=== PATIENT | female | born 1940 | race Caucasian/White ===

== ENCOUNTER 2016-09-27 07:36 | Day surgery (SDC) | payer MEDICARE ==
[2016-09-25 11:47] VITALS: BMI 28.3
[~2016-09-27 07:36] MED LIST: LACTATED RINGERS 1,000 ML IV SCH; LIDOCAINE 1% 20 ML VIAL (10MG/ML) FOR IV START INTRADERMA PRN
[2016-09-27 08:10] VITALS: RESP 16; TEMP 97.8
[2016-09-27] MEDS ORDERED: LIDOCAINE 1% INJ 10MG/ML (20 ML MDV) ONE (08:25)
[2016-09-27] MEDS ORDERED: PROPOFOL 10 MG/ML 20 ML VIAL IV ONE (08:25)
--- NOTE | 2016-09-27 08:42 | P.PCN ---
Date of Procedure: 09/27/16 Procedure(s) Performed: BRIEF HISTORY: Patient is a 75-year-old pleasant white female, scheduled for an elective colonoscopy as a part of evaluation of long-standing history of ulcerative colitis diagnosed in 2007. Patient is in clinical remission and is maintained on Asacol 1600 mg 3 times daily. She is scheduled for a surveillance colonoscopy today. PROCEDURE PERFORMED: Colonoscopy with biopsy. PREOPERATIVE DIAGNOSIS: History of ulcerative colitis diagnosed in 2007. IV sedation per Anesthesia. PROCEDURE: After informed consent was obtained, the patient, was brought into the endoscopy unit. IV conscious sedation was administered by Anesthesia under continuous monitoring. Initially the Olympus CF-160 flexible video colonoscope was then inserted in the rectum, gradually advanced into the cecum without any difficulty. Careful examination was performed as the scope was gradually being withdrawn. Ileocecal valve and the appendiceal orifice were visualized and appeared normal. Prep was excellent. Mucosa of the cecum, ascending colon, transverse colon, descending colon, sigmoid colon, and rectum appeared normal. Random biopsies were done from the rectum to cecum to rule out dysplasia. Scattered similar diverticulosis seen. Retroflexion was performed in the rectum and no lesions were seen. The patient tolerated the procedure well. IMPRESSION: Normal-appearing colon from rectum to cecum with no evidence of active colitis or colorectal neoplasia . Scattered sigmoid diverticulosis. RECOMMENDATIONS: Findings of this examination were discussed with the patient as well as her family. She was advised to follow with the biopsy results. If the biopsy does not show any evidence of dysplasia ,she can have a repeat colonoscopy in 2 years.
[2016-09-27 08:45] VITALS: BP 141/72; PULSE 66
== END 2016-09-27 09:51 | disposition home or self-care (01) ==
LOC: ORWHC2ENDO 07:36
PROVIDERS: ATTEND Internal Medicine Gastroenterology
DX: Z87.19 Personal history of other diseases of the digestive system (principal); K57.30 Diverticulosis of large intestine without perforation or abscess without bleeding; K21.9 Gastro-esophageal reflux disease without esophagitis; I10 Essential (primary) hypertension; J45.909 Unspecified asthma, uncomplicated; E07.9 Disorder of thyroid, unspecified; Z79.899 Other long term (current) drug therapy; Z88.2 Allergy status to sulfonamides; Z88.8 Allergy status to other drugs, medicaments and biological substances
CPT/HCPCS: 88305; 45380; J2001; J2704

== ENCOUNTER → 2016-10-07 | Outpatient (CLI) | payer MEDICARE ==
[2016-10-07 12:12] LABS: CH 30.2; CHCM 31.8; HCT 37.9 % (34.0-46.0); HDW 2.21; HGB 12.2 gm/dL (11.4-16.0); MCH 30.6 pg (25.0-35.0); MCHC 32.1 g/dL (31.0-37.0); MCV 95.3 fL (80.0-100.0); Mean Platelet Volume 7.7; RBC 3.98 m/uL (3.80-5.40); RDW 12.7 % (11.5-15.5); WBC 4.8 k/uL (3.8-10.6)
[2016-10-07 12:40] LABS: ALT 22 U/L (9-52); AST 18 U/L (14-36); Alkaline Phosphatase 57 U/L (38-126); Anion Gap 8 mmol/L; Blood Urea Nitrogen 9 mg/dL (7-17); Calcium 9.7 mg/dL (8.4-10.2); Carbon Dioxide 27 mmol/L (22-30); Chloride 104 mmol/L (98-107); Cholesterol 165 mg/dL (<200); Glucose 83 mg/dL (74-99); HDL Cholesterol 53 mg/dL (40-60); Non-African American GFR(MDRD) >60 (>60 ml/min/1.73 sqM); Potassium 4.2 mmol/L (3.5-5.1); Sodium 139 mmol/L (137-145); Total Bilirubin 0.5 mg/dL (0.2-1.3); Total Protein 6.4 g/dL (6.3-8.2); Triglycerides 95 mg/dL (<150)
== END | disposition home or self-care (01) ==
LOC: LABWHC1 11:35
PROVIDERS: ATTEND Psychiatry & Neurology Psychiatry
DX: E03.9 Hypothyroidism, unspecified (principal); E78.5 Hyperlipidemia, unspecified
CPT/HCPCS: 36415; 80053; 80061; 84439; 84443; 85027

== ENCOUNTER 2017-03-08 18:23 | Emergency (ER) | payer MEDICARE, OTHER ==
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
--- NOTE | 2017-03-08 19:17 | XR ---
EXAMINATION TYPE: XR shoulder complete RT DATE OF EXAM: 03/08/2017 COMPARISON: NONE HISTORY: Pain TECHNIQUE: 4 views FINDINGS: There is lucency in the glenoid that is suspicious for nondisplaced 1.5 cm intra-articular chip fracture of the inferior glenoid. There is no dislocation. Proximal humerus is intact. IMPRESSION: Possible intra-articular large chip fracture of the inferior glenoid labrum. CT scan woul d be helpful for further evaluation if clinically indicated.
--- NOTE | 2017-03-08 19:19 | XR ---
EXAMINATION TYPE: XR hand complete RT DATE OF EXAM: 03/08/2017 COMPARISON: NONE HISTORY: Pain TECHNIQUE: 3 views FINDINGS: There is narrowing and spurring at the first carpometacarpal joint. There is calcification in the triangle or cartilage. There is narrowing of intercarpal joint spaces. There is osteopenia. I see no fracture. IMPRESSION: No acute abnormality of the right hand. Degenerative changes. There is probably an old he aled fracture of distal radius.
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
[2017-03-08 21:45] VITALS: BP 186/79; PULSE 64; RESP 16; TEMP 98.6
== END 2017-03-08 21:56 | disposition home or self-care (01) ==
LOC: EC 18:23
DX: S42.144A Nondisplaced fracture of glenoid cavity of scapula, right shoulder, initial encounter for closed fracture (principal); S60.221A Contusion of right hand, initial encounter; S70.12XA Contusion of left thigh, initial encounter; M54.5 Low back pain; J45.909 Unspecified asthma, uncomplicated; M19.90 Unspecified osteoarthritis, unspecified site; E07.9 Disorder of thyroid, unspecified; F41.9 Anxiety disorder, unspecified; Z79.51 Long term (current) use of inhaled steroids; Z79.891 Long term (current) use of opiate analgesic; Z79.899 Other long term (current) drug therapy; Z88.1 Allergy status to other antibiotic agents; Z88.2 Allergy status to sulfonamides; Z88.5 Allergy status to narcotic agent; Z88.8 Allergy status to other drugs, medicaments and biological substances; Z87.19 Personal history of other diseases of the digestive system; V63.5XXA Driver of heavy transport vehicle injured in collision with car, pick-up truck or van in traffic accident, initial encounter; Y93.89 Activity, other specified; Y92.410 Unspecified street and highway as the place of occurrence of the external cause
CPT/HCPCS: 72100; 72131; 99284

== ENCOUNTER → 2017-03-26 | Outpatient (CLI) | payer MEDICARE ==
[~2017-03-26] MED LIST changes: +DENOSUMAB 60 MG/ML 1 ML SYRINGE SQ NR; -LACTATED RINGERS 1,000 ML IV SCH; -LIDOCAINE 1% 20 ML VIAL (10MG/ML) FOR IV START INTRADERMA PRN
[2017-03-26 13:49] VITALS: BP 148/67; PULSE 64; RESP 18; TEMP 97.8
== END ==
LOC: PROCWHC3 13:18
PROVIDERS: ATTEND Family Medicine
DX: M81.0 Age-related osteoporosis without current pathological fracture (principal)
CPT/HCPCS: 96372; J0897

== ENCOUNTER → 2017-11-27 | Outpatient (CLI) | payer MEDICARE ==
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
== END | disposition home or self-care (01) ==
LOC: RADBDWWP 09:37
PROVIDERS: ATTEND Family Medicine
DX: M81.0 Age-related osteoporosis without current pathological fracture (principal)
CPT/HCPCS: 77080

== ENCOUNTER 2017-12-22 21:18 | Emergency (ER) | payer MEDICARE ==
[2017-12-22 21:29] VITALS: RESP 18
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
[2017-12-22] MEDS ORDERED: MORPHINE SULFATE 4MG/4ML SYRG IM STA (22:24)
--- NOTE | 2017-12-22 22:56 | XR ---
EXAMINATION TYPE: XR shoulder complete RT DATE OF EXAM: 12/22/2017 COMPARISON: 03/08/2017 HISTORY: Shoulder pain TECHNIQUE: 3 views FINDINGS: There is deformity of the humeral head consistent with a slightly impacted fracture of the humeral neck. There is no dislocation. Acromioclavicular joint is intact. Scapula appears intact. IMPRESSION: Acute mildly impacted humeral neck fracture. This is a change compared to old exam.
[2017-12-22 23:41] VITALS: BP 160/80; PULSE 70; TEMP 97.8
== END 2017-12-22 23:41 | disposition home or self-care (01) ==
LOC: EC 21:18
DX: S42.301A Unspecified fracture of shaft of humerus, right arm, initial encounter for closed fracture (principal); J45.909 Unspecified asthma, uncomplicated; M19.90 Unspecified osteoarthritis, unspecified site; E07.9 Disorder of thyroid, unspecified; F41.9 Anxiety disorder, unspecified; Z79.52 Long term (current) use of systemic steroids; Z79.899 Other long term (current) drug therapy; Z88.2 Allergy status to sulfonamides; Z88.8 Allergy status to other drugs, medicaments and biological substances; Z88.1 Allergy status to other antibiotic agents; Z88.5 Allergy status to narcotic agent; Z88.6 Allergy status to analgesic agent; W01.0XXA Fall on same level from slipping, tripping and stumbling without subsequent striking against object, initial encounter; Y92.099 Unspecified place in other non-institutional residence as the place of occurrence of the external cause; Y93.01 Activity, walking, marching and hiking
CPT/HCPCS: 99283; 73030; L3670; J2270

== ENCOUNTER → 2017-12-26 | Outpatient (CLI) | payer MEDICARE ==
--- NOTE | 2017-12-27 10:26 | CT ---
EXAMINATION TYPE: CT shoulder RT wo con DATE OF EXAM: 12/26/2017 COMPARISON: CT right shoulder March 08, 2017. Right shoulder x-ray December 22, 2017 HISTORY: Rt shoulder pain. Recent fall injury. History of prior fracture. CT DLP: 260.7 mGycm Automated exposure control for dose reduction was used. FINDINGS: Osseous structures are demineralized. Acromioclavicular joint shows narrowing with capsular hypertrop hy and calcifications superiorly. Distal acromion morphology is unremarkable. There is mild to moderate glenohumeral joint space narrowing. There is mild osteophyte formation ante rior inferior aspect of the medial aspect of humeral head. There is new comminuted slightly impacted fracture through the surgical neck of right proximal humeru s. There is poor visualization of lucent line but it is likely present near axial image 25. Some scle rosis is present presumed product of impaction as no fracture is suspected acute correlating with rec ent fall. This fracture is new from prior CT. On coronal images there is 1.1 cm lateral displacement. There is additional lucency consistent with second fracture involving the greater trochanter. Some increasing calcification superolateral humeral head along course of distal rotator cuff or supra spinatus tendon is present on coronal image 24. Correlate clinically for calcific tendinitis. There i s new subdeltoid/subacromial fluid seen superficial to this on current study presumed related to rece nt trauma or fracture. Rotator cuff muscle bulk is fairly well-maintained. Visualized right lung is clear. IMPRESSION: THERE IS 2 PART NEER FRACTURE SURGICAL NECK RIGHT PROXIMAL HUMERUS WITH JUST GREATER THAN 1 CM DISPLA CEMENT OF DISTAL FRACTURE FRAGMENT APPRECIATED ON CORONAL IMAGES. THERE IS ADDITIONAL NONDISPLACED CO MMINUTED FRACTURE THROUGH THE GREATER TUBEROSITY NOTED.
== END | disposition home or self-care (01) ==
LOC: RADCTMAIN 13:34
PROVIDERS: ATTEND Orthopaedic Surgery
DX: S42.251A Displaced fracture of greater tuberosity of right humerus, initial encounter for closed fracture (principal); S42.201A Unspecified fracture of upper end of right humerus, initial encounter for closed fracture; S42.401A Unspecified fracture of lower end of right humerus, initial encounter for closed fracture

== ENCOUNTER 2018-02-14 10:48 | Emergency (ER) | payer MEDICARE ==
[2018-02-14 10:54] VITALS: TEMP 98.2
--- NOTE | 2018-02-14 11:13 | ED ---
General Adult HPI - General Chief complaint: Arrhythmia/Palpitations Stated complaint: HEART ISSUE Time Seen by Provider: 02/14/18 10:56 Source: patient, RN notes reviewed, old records reviewed Mode of arrival: wheelchair Limitations: no limitations - History of Present Illness Initial comments: 77-year-old female history of hypertension and irregular heartbeat presents for evaluation of palpitations and elevated blood pressure. Patient went to physical therapy this morning which she is receiving therapy for her fractured right humerus. She states that she had some palpitations and staff didn't take her vitals, noted an elevated blood pressure and Center for evaluation. She states she does have history of high blood pressure and took her medications this morning. She denies any difficulty breathing. Denies chest pain. She feels well the time my evaluation. No palpitations. No lower extremity pain or swelling. No abdominal pain. No nausea vomiting or diarrhea. No fever or cough. - Related Data Home Medications Medication Instructions Recorded Confirmed Acetaminophen Tab [Tylenol] 500 mg PO TID 05/17/14 03/26/17 Albuterol Sulfate [Ventolin HFA] 1 - 2 puff INHALATION RT-QID PRN 05/17/1403/26 Beclomethasone Dipropionate [Qvar 2 puff INHALATION RT-BID 05/17/14 03/26/17 80 mcg/puff] Calcium Carbonate [Antacid] 600 mg PO DAILY 05/17/14 03/26/17 Fexofenadine/Pseudoephedrine 1 tab PO DAILY 05/17/14 03/26/17 [Kimber-D 12 Hour Tablet] LORazepam [Lorazepam] 0.5 - 1 tab PO HS 05/17/14 03/26/17 Levothyroxine Sodium [Synthroid] 175 mcg PO DAILY 05/17/14 03/26/17 Mesalamine [Asacol Hd] 1,600 mg PO TID 05/17/14 03/26/17 Citalopram Hydrobromide [CeleXA] 10 mg PO DAILY 03/22/16 03/26/17 HYDROcodone/APAP 5-325MG [[place] 1 tab PO Q8H PRN 03/08/17 03/26/17 5-325] Ranitidine HCl 150 mg PO BID 03/08/17 03/26/17 Verapamil Sr [Isoptin Sr] 180 mg PO DAILY 03/08/17 03/26/17 Previous Rx's Medication Instructions Recorded Hydrocodone/Acetaminophen [[place] 1 each PO Q6HR PRN #20 tab 12/22/17 5-325] Allergies Allergy/AdvReac Type Severity Reaction Status Date / Time Sulfa (Sulfonamide Allergy Severe Rash/Hives Verified 02/14/18 10:53 Antibiotics) PRIYA Inhibitors Allergy Unknown Verified 02/14/18 10:53 atorvastatin calcium Allergy Swelling Verified 02/14/18 10:53 [From Lipitor] atropine sulfate Allergy Unknown Verified 02/14/18 10:53 [From Lomotil] Cephalosporins Allergy Unknown Verified 02/14/18 10:53 dicyclomine HCl [From Bentyl] Allergy Nausea Verified 02/14/18 10:53 diphenoxylate HCl Allergy Unknown Verified 02/14/18 10:53 [From Lomotil] propoxyphene napsylate Allergy Unknown Verified 02/14/18 10:53 [From Darvocet-N 100] Ungwlfm-Klr-Vic Reductase Allergy muscle pain Verified 02/14/18 10:53 Inhibitor acetaminophen AdvReac Unknown Verified 02/14/18 10:53 [From Darvocet-N 100] lopidimine Allergy Unknown Uncoded 02/14/18 10:53 Review of Systems ROS Statement: Those systems with pertinent positive or pertinent negative responses have been documented in the HPI. ROS Other: All systems not noted in ROS Statement are negative. Past Medical History Past Medical History: Asthma, Hypertension, Osteoarthritis (OA), Thyroid Disorder Additional Past Medical History / Comment(s): ulcerative colitis scoliosis, 11/17- OSTEOPOROSIS- wears back brace as needed, History of Any Multi-Drug Resistant Organisms: None Reported Past Surgical History: Appendectomy, Cholecystectomy, Hysterectomy, Joint Replacement, Tonsillectomy Additional Past Surgical History / Comment(s): Bilateral total knee arthroplasty , hilda cataracts, Past Anesthesia/Blood Transfusion Reactions: No Reported Reaction Past Psychological History: Anxiety Smoking Status: Never smoker Past Alcohol Use History: None Reported Past Drug Use History: None Reported - Past Family History Mother Family Medical History: No Reported History General Exam Limitations: no limitations General appearance: alert, in no apparent distress Head exam: Present: atraumatic, normocephalic Eye exam: Present: normal appearance, PERRL ENT exam: Present: normal exam Neck exam: Present: normal inspection. Absent: tenderness, meningismus Respiratory exam: Present: normal lung sounds bilaterally. Absent: respiratory distress, wheezes, rales Cardiovascular Exam: Present: regular rate, normal rhythm GI/Abdominal exam: Present: soft. Absent: distended, tenderness Extremities exam: Present: normal inspection, normal capillary refill. Absent: pedal edema, calf tenderness Neurological exam: Present: alert, oriented X3, CN II-XII intact. Absent: motor sensory deficit Psychiatric exam: Present: normal affect, normal mood Skin exam: Present: warm, dry, intact. Absent: cyanosis, diaphoretic Course Vital Signs 02/14/18 02/14/18 02/14/18 10:50 11:07 11:11 Temperature 98.2 F Pulse Rate 109 H 90 Pulse Rate [ 88 Apical] Respiratory 18 18 Rate Blood Pressure 191/81 169/90 O2 Sat by Pulse 96 100 Oximetry EKG Findings - EKG Comments: EKG Findings:: EKG: Normal sinus rhythm, rate of 84, OR interval 136, QRS duration 82, QTC 441, no ST segment elevation or depression, Medical Decision Making - Medical Decision Making 77-year-old female presenting for elevated blood pressure at her physical therapy appointment this morning. Only symptom was palpitations earlier today. No chest pain. Physical exam is unremarkable. Workup including EKG, which is normal sinus chest x-ray showing good aeration, no focal pneumonia. CBC and CMP are obtained which are within normal limits, troponin is negative. On reevaluation, patient's blood pressure is 152/69. She is completely asymptomatic. She will continue to take her antihypertensive medication. She will return with worsening or changing symptoms. - Lab Data Result diagrams: 02/14/18 11:10 02/14/18 11:10 Lab Results 02/14/18 02/14/18 02/14/18 Range/Units 11:10 11:10 11:10 WBC 7.0 (3.8-10.6) k/uL RBC 4.57 (3.80-5.40) m/uL Hgb 13.7 (11.4-16.0) gm/dL Hct 42.0 (34.0-46.0) % MCV 91.9 (80.0-100.0) fL MCH 29.9 (25.0-35.0) pg MCHC 32.6 (31.0-37.0) g/dL RDW 13.9 (11.5-15.5) % Plt Count 247 (150-450) k/uL Neutrophils % 65 % Lymphocytes % 24 % Monocytes % 6 % Eosinophils % 3 % Basophils % 1 % Neutrophils # 4.5 (1.3-7.7) k/uL Lymphocytes # 1.7 (1.0-4.8) k/uL Monocytes # 0.4 (0-1.0) k/uL Eosinophils # 0.2 (0-0.7) k/uL Basophils # 0.0 (0-0.2) k/uL PT (9.0-12.0) sec INR (<1.2) APTT (22.0-30.0) sec Sodium 141 (137-145) mmol/L Potassium 3.9 (3.5-5.1) mmol/L Chloride 100 (98-107) mmol/L Carbon Dioxide 28 (22-30) mmol/L Anion Gap 13 mmol/L BUN 13 (7-17) mg/dL Creatinine 1.01 (0.52-1.04) mg/dL Est GFR (CKD-EPI)AfAm 61 (>60 ml/min/1.73 sqM) Est GFR (CKD-EPI)NonAf 53 (>60 ml/min/1.73 sqM) Glucose 81 (74-99) mg/dL Calcium 9.9 (8.4-10.2) mg/dL Magnesium 1.9 (1.6-2.3) mg/dL Total Bilirubin 0.5 (0.2-1.3) mg/dL AST 22 (14-36) U/L ALT 23 (9-52) U/L Alkaline Phosphatase 76 (38-126) U/L Total Creatine Kinase 63 (30-135) U/L CK-MB (CK-2) 0.8 (0.0-2.4) ng/mL CK-MB (CK-2) Rel Index 1.3 Troponin I <0.012 (0.000-0.034) ng/mL Total Protein 6.9 (6.3-8.2) g/dL Albumin 4.1 (3.5-5.0) g/dL 02/14/18 Range/Units 11:10 WBC (3.8-10.6) k/uL RBC (3.80-5.40) m/uL Hgb (11.4-16.0) gm/dL Hct (34.0-46.0) % MCV (80.0-100.0) fL MCH (25.0-35.0) pg MCHC (31.0-37.0) g/dL RDW (11.5-15.5) % Plt Count (150-450) k/uL Neutrophils % % Lymphocytes % % Monocytes % % Eosinophils % % Basophils % % Neutrophils # (1.3-7.7) k/uL Lymphocytes # (1.0-4.8) k/uL Monocytes # (0-1.0) k/uL Eosinophils # (0-0.7) k/uL Basophils # (0-0.2) k/uL PT 10.6 (9.0-12.0) sec INR 1.1 (<1.2) APTT 24.3 (22.0-30.0) sec Sodium (137-145) mmol/L Potassium (3.5-5.1) mmol/L Chloride (98-107) mmol/L Carbon Dioxide (22-30) mmol/L Anion Gap mmol/L BUN (7-17) mg/dL Creatinine (0.52-1.04) mg/dL Est GFR (CKD-EPI)AfAm (>60 ml/min/1.73 sqM) Est GFR (CKD-EPI)NonAf (>60 ml/min/1.73 sqM) Glucose (74-99) mg/dL Calcium (8.4-10.2) mg/dL Magnesium (1.6-2.3) mg/dL Total Bilirubin (0.2-1.3) mg/dL AST (14-36) U/L ALT (9-52) U/L Alkaline Phosphatase (38-126) U/L Total Creatine Kinase (30-135) U/L CK-MB (CK-2) (0.0-2.4) ng/mL CK-MB (CK-2) Rel Index Troponin I (0.000-0.034) ng/mL Total Protein (6.3-8.2) g/dL Albumin (3.5-5.0) g/dL Disposition Clinical Impression: Hypertension Disposition: HOME SELF-CARE Condition: Fair Instructions: Palpitations (ED), Hypertension (ED) Is patient prescribed a controlled substance at d/c from ED?: No Referrals: Bong Daly DO [Primary Care Provider] - 1-2 days Time of Disposition: 12:26
[2018-02-14 11:46] LABS: Albumin 4.1 g/dL (3.5-5.0); Calcium 9.9 mg/dL (8.4-10.2); Magnesium 1.9 mg/dL (1.6-2.3); Potassium 3.9 mmol/L (3.5-5.1); Total Bilirubin 0.5 mg/dL (0.2-1.3); Total Protein 6.9 g/dL (6.3-8.2)
[2018-02-14 11:47] LABS: Basophils % (A) 1 %; Eosinophils # (A) 0.2 k/uL (0-0.7); Eosinophils % (A) 3 %; HGB 13.7 gm/dL (11.4-16.0); Lymphocytes # (A) 1.7 k/uL (1.0-4.8); Lymphocytes % (A) 24 %; MCH 29.9 pg (25.0-35.0); MCHC 32.6 g/dL (31.0-37.0); MCV 91.9 fL (80.0-100.0); Mean Platelet Volume 6.8; Monocytes # (A) 0.4 k/uL (0-1.0); Monocytes % (A) 6 %; Neutrophils # (A) 4.5 k/uL (1.3-7.7); Neutrophils % (A) 65 %; Platelet Count 247 k/uL (150-450); RBC 4.57 m/uL (3.80-5.40); RDW 13.9 % (11.5-15.5)
--- NOTE | 2018-02-14 11:50 | XR ---
EXAMINATION TYPE: XR chest 2V DATE OF EXAM: 02/14/2018 COMPARISON: Prior chest 12/08/2009 HISTORY: Dysrhythmia TECHNIQUE: Frontal and lateral views of the chest are obtained. FINDINGS: There is no focal air space opacity, pleural effusion, or pneumothorax seen. The cardiac silhouette size is within normal limits. The osseous structures are intact. There are overlying car diac leads. IMPRESSION: No acute cardiopulmonary process.
[2018-02-14 11:59] LABS: Creatine Kinase 63 U/L (30-135)
[2018-02-14 12:11] LABS: Creatine Kinase MB 0.8 ng/mL (0.0-2.4); Troponin I <0.012 ng/mL (0.000-0.034)
[2018-02-14 12:13] LABS: INR 1.1 (<1.2)
[2018-02-14 12:14] LABS: Partial Thromboplastin Time 24.3 sec (22.0-30.0); Prothrombin Time 10.6 sec (9.0-12.0)
[2018-02-14 12:25] VITALS: BP 152/69; PULSE 71; RESP 16
== END 2018-02-14 13:10 | disposition home or self-care (01) ==
LOC: EC 10:48
DX: I10 Essential (primary) hypertension (principal); J45.909 Unspecified asthma, uncomplicated; M19.90 Unspecified osteoarthritis, unspecified site; E07.9 Disorder of thyroid, unspecified; M81.0 Age-related osteoporosis without current pathological fracture; F41.9 Anxiety disorder, unspecified; Z96.653 Presence of artificial knee joint, bilateral; Z79.51 Long term (current) use of inhaled steroids; Z79.899 Other long term (current) drug therapy; Z88.2 Allergy status to sulfonamides; Z88.5 Allergy status to narcotic agent; Z88.8 Allergy status to other drugs, medicaments and biological substances
CPT/HCPCS: 36415; 71046; 80053; 82550; 82553; 83735; 84484; 85025; 85610; 85730; 93005; 99285

== ENCOUNTER → 2018-04-26 | Outpatient (CLI) | payer MEDICARE ==
--- NOTE | 2018-04-26 15:12 | NM ---
EXAMINATION TYPE: NM bone scan whole body DATE OF EXAM: 04/26/2018 COMPARISON: Plain film 04/08/2018, prior bone scan 07/29/2014 HISTORY: Low back pain Delayed whole-body scanning was performed following the injection of 23.2 mCi Tc 99m MDP. Images acq uired 3 hours post injection. FINDINGS: There is a bandlike area of increased radio from physical uptake at T12 level compatible with subacut e osteoporotic compression fracture. Scoliotic curvature is present in the visualized spine. Uptake w ithin the feet, wrists, shoulders, sternoclavicular joints is likely degenerative. Postop changes are suspected to the knees, photopenic defects are present. Soft tissue uptake within normal limits. IMPRESSION: Subacute T12 osteoporotic compression fracture.
== END | disposition home or self-care (01) ==
LOC: RADNMMAIN 09:57
PROVIDERS: ATTEND Physical Medicine & Rehabilitation
DX: M80.08XA Age-related osteoporosis with current pathological fracture, vertebra(e), initial encounter for fracture (principal)
CPT/HCPCS: 78306; A9503

== ENCOUNTER 2018-11-25 08:30 | Inpatient (IN) | payer MEDICARE ==
[2018-11-25] MEDS ORDERED: ONDANSETRON 4 MG/2 ML VIAL IVP STA (09:17)
[2018-11-25] MEDS ORDERED: SODIUM CHLORIDE 0.9% 1,000 ML IV STA ×2 (09:17)
--- NOTE | 2018-11-25 09:19 | ED ---
General Adult HPI - General Source: patient, EMS, RN notes reviewed, old records reviewed Mode of arrival: EMS Limitations: no limitations <Zenia Leal - Last Filed: 11/25/18 12:59> <Michael Long - Last Filed: 11/25/18 13:23> - General Chief complaint: Nausea/Vomiting/Diarrhea Stated complaint: NVD Time Seen by Provider: 11/25/18 08:45 - History of Present Illness Initial comments: Patient is a 78-year-old female presents emergency department today with complaints of nausea vomiting and diarrhea. Patient reports that she's been having symptoms for the past few days to more severe. Patient states that she's had diffuse lower abdominal cramping. Patient denies any back pain. She denies any changes in urination. No recent antibiotic use. She does have history of Crohn's or ulcerative colitis. She is unsure which type. Patient states that she has noticed bright red blood. Patient reports that she's had no chest pain shortness of breath. (Zenia Leal) - Related Data Home Medications Medication Instructions Recorded Confirmed Albuterol Sulfate [Ventolin HFA] 1 - 2 puff INHALATION RT-QID PRN 05/17/14 11/25/18 Beclomethasone Dipropionate [Qvar 2 puff INHALATION RT-BID 05/17/14 11/25/18 80 mcg/puff] LORazepam [Lorazepam] 1 mg PO HS 05/17/14 11/25/18 Levothyroxine Sodium [Synthroid] 175 mcg PO DAILY 05/17/14 11/25/18 Mesalamine [Asacol Hd] 1,600 mg PO TID 05/17/14 11/25/18 Citalopram Hydrobromide [CeleXA] 10 mg PO DAILY 03/22/16 11/25/18 HYDROcodone/APAP 5-325MG [[place] 1 tab PO Q8H PRN 03/08/17 11/25/18 5-325] Ranitidine HCl 150 mg PO BID 03/08/17 11/25/18 Cholecalciferol (Vitamin D3) 2,000 unit PO DAILY 02/14/18 11/25/18 [Vitamin D3] Fexofenadine HCl [Kimber Allergy] 180 mg PO DAILY 02/14/18 11/25/18 Verapamil Sr [Isoptin Sr] 240 mg PO DAILY 02/14/18 11/25/18 Ondansetron HCl [Zofran] 4 - 8 mg PO Q12H PRN 11/25/18 11/25/18 Allergies Allergy/AdvReac Type Severity Reaction Status Date / Time Sulfa (Sulfonamide Allergy Severe Rash/Hives Verified 11/25/18 12:02 Antibiotics) PRIYA Inhibitors Allergy Unknown Verified 11/25/18 12:02 atorvastatin calcium Allergy Swelling Verified 11/25/18 12:02 [From Lipitor] atropine sulfate Allergy Unknown Verified 11/25/18 12:02 [From Lomotil] Cephalosporins Allergy Unknown Verified 11/25/18 12:02 dicyclomine HCl [From Bentyl] Allergy Nausea Verified 11/25/18 12:02 diphenoxylate HCl Allergy Unknown Verified 11/25/18 12:02 [From Lomotil] propoxyphene napsylate Allergy Unknown Verified 11/25/18 12:02 [From Darvocet-N 100] Nafnhvu-Tge-Cea Reductase Allergy muscle pain Verified 11/25/18 12:02 Inhibitor acetaminophen AdvReac Unknown Verified 11/25/18 12:02 [From Darvocet-N 100] lopidimine Allergy Unknown Uncoded 02/14/18 10:53 Review of Systems ROS Other: All systems not noted in ROS Statement are negative. <Zenia Leal - Last Filed: 11/25/18 12:59> ROS Other: All systems not noted in ROS Statement are negative. <Michael Long - Last Filed: 11/25/18 13:23> ROS Statement: Those systems with pertinent positive or pertinent negative responses have been documented in the HPI. Past Medical History Past Medical History: Asthma, Hypertension, Osteoarthritis (OA), Thyroid D isorder Additional Past Medical History / Comment(s): ulcerative colitis scoliosis, 11/17/14- OSTEOPOROSIS- wears back brace as needed, History of Any Multi-Drug Resistant Organisms: None Reported Past Surgical History: Appendectomy, Cholecystectomy, Hysterectomy, Joint Replacement, Tonsillectomy Additional Past Surgical History / Comment(s): Bilateral total knee arthroplasty, hilda cataracts, Past Anesthesia/Blood Transfusion Reactions: No Reported Reaction Past Psychological History: Anxiety Smoking Status: Never smoker Past Alcohol Use History: None Reported Past Drug Use History: None Reported - Past Family History Mother Family Medical History: No Reported History <Zenia Leal - Last Filed: 11/25/18 12:59> General Exam Limitations: no limitations General appearance: alert, in no apparent distress Head exam: Present: atraumatic, normocephalic, normal inspection Eye exam: Present: normal appearance, PERRL, EOMI. Absent: scleral icterus, conjunctival injection, periorbital swelling ENT exam: Present: mucous membranes dry, mucous membranes moist. Absent: normal exam, normal oropharynx Neck exam: Present: normal inspection. Absent: tenderness, meningismus, lymphadenopathy Respiratory exam: Present: normal lung sounds bilaterally. Absent: respiratory distress, wheezes, rales, rhonchi, stridor Cardiovascular Exam: Present: regular rate, normal rhythm, normal heart sounds. Absent: systolic murmur, diastolic murmur, rubs, gallop, clicks GI/Abdominal exam: Present: tenderness (Right lower quadrant pain), normal bowel sounds. Absent: soft, distended, guarding, rebound, rigid Extremities exam: Present: normal inspection, full ROM, normal capillary refill. Absent: tenderness, pedal edema, joint swelling, calf tenderness Back exam: Present: normal inspection Neurological exam: Present: alert Psychiatric exam: Present: normal affect, normal mood Skin exam: Present: warm, dry, intact, normal color. Absent: rash <Zenia Leal - Last Filed: 11/25/18 12:59> - General Exam Comments Initial Comments: This patient's an 78-year-old female. Alert and oriented 3. No significant distress. (Zenia Leal) Course <Zenia Leal - Last Filed: 11/25/18 12:59> Vital Signs 11/25/18 11/25/18 08:38 10:26 Temperature 98.3 F Pulse Rate 93 85 Respiratory 18 20 Rate Blood Pressure 108/88 147/72 O2 Sat by Pulse 98 97 Oximetry - Reevaluation(s) Reevaluation #1: 11/25/18 10:26 Patient reports that she's been disimpacting herself. (Zenia Leal) Medical Decision Making - Lab Data Result diagrams: 11/25/18 09:45 11/25/18 09:45 - Radiology Data Radiology results: report reviewed <Zenia Leal - Last Filed: 11/25/18 12:59> - Lab Data Result diagrams: 11/25/18 09:45 11/25/18 09:45 <Michael Long - Last Filed: 11/25/18 13:23> - Medical Decision Making Patient is an 78-year-old female presents emergency department today with complaints of nausea and vomiting and diarrhea. Symptoms progressed over the past few days. Patient's son is concerned with her multiple diarrhea episodes that she could be risk for fall. She reports she's been using some laxatives to promote bowel movements that she recently suffered from constipation. She also complains of conservative fecal impaction. Patient has had a large bowel movement multiple times in the ER. Over 6 episodes of diarrhea within the past 2 hours. Patient 10 episodes of vomiting. Patient labwork was obtained. She has evidence of hypokalemia. Potassium was 3.0. She is given 40 by mouth of K- Dur and was able to tolerate the pill. Patient's complaining of severe right lower quadrant tenderness pain. CT abdomen and pelvis was completed. There is evidence of severe colitis. Patient reports that she does see Dr. Momin. She is scheduled for colonoscopy within the next few weeks. I discussed at this time with dehydration multiple episodes of diarrhea. Concern for colitis. The Patient. We'll give the Patient 1 dose of by mouth Cipro Flagyl elevated white blood cell count. All questions were answered. (Zenia Leal) Patient reevaluated and reexamined by myself, Dr. Long. Patient is resting comfortably in bed. Abdomen soft with mild diffuse tenderness. Patient does appear dry clinically. Case was discussed in detail with Dr. Camp, who will admit covered for Dr. Daly. GI will be placed on consult. Patient was previously seen Dr. Momin. (Michael Long) - Lab Data Lab Results 11/25/18 11/25/18 11/25/18 Range/Units 09:45 09:45 09:45 WBC 14.0 H (3.8-10.6) k/uL RBC 4.21 (3.80-5.40) m/uL Hgb 12.6 (11.4-16.0) gm/dL Hct 39.2 (34.0-46.0) % MCV 93.1 (80.0-100.0) fL MCH 29.9 (25.0-35.0) pg MCHC 32.1 (31.0-37.0) g/dL RDW 14.1 (11.5-15.5) % Plt Count 566 H (150-450) k/uL Neutrophils % 81 % Lymphocytes % 9 % Monocytes % 8 % Eosinophils % 1 % Basophils % 0 % Neutrophils # 11.3 H (1.3-7.7) k/uL Lymphocytes # 1.3 (1.0-4.8) k/uL Monocytes # 1.1 H (0-1.0) k/uL Eosinophils # 0.2 (0-0.7) k/uL Basophils # 0.0 (0-0.2) k/uL PT 10.8 (9.0-12.0) sec INR 1.0 (<1.2) APTT 24.8 (22.0-30.0) sec Sodium 135 L (137-145) mmol/L Potassium 3.0 L (3.5-5.1) mmol/L Chloride 98 (98-107) mmol/L Carbon Dioxide 27 (22-30) mmol/L Anion Gap 10 mmol/L BUN 18 H (7-17) mg/dL Creatinine 0.57 (0.52-1.04) mg/dL Est GFR (CKD-EPI)AfAm >90 (>60 ml/min/1.73 sqM) Est GFR (CKD-EPI)NonAf 88 (>60 ml/min/1.73 sqM) Glucose 103 H (74-99) mg/dL Calcium 9.8 (8.4-10.2) mg/dL Magnesium (1.6-2.3) mg/dL Total Bilirubin 1.1 (0.2-1.3) mg/dL AST 15 (14-36) U/L ALT 25 (9-52) U/L Alkaline Phosphatase 232 H (38-126) U/L Total Protein 6.2 L (6.3-8.2) g/dL Albumin 3.1 L (3.5-5.0) g/dL Amylase <30 L (30-110) U/L Lipase 18 L (23-300) U/L Urine Color Urine Appearance (Clear) Urine pH (5.0-8.0) Ur Specific [place] (1.001-1.035) Urine Protein (Negative) Urine Glucose (UA) (Negative) Urine Ketones (Negative) Urine Blood (Negative) Urine Nitrite (Negative) Urine Bilirubin (Negative) Urine Urobilinogen (<2.0) mg/dL Ur Leukocyte Esterase (Negative) Urine WBC (0-5) /hpf Ur Squamous Epith Cells (0-4) /hpf Amorphous Sediment (None) /hpf Urine Bacteria (None) /hpf Hyaline Casts (0-2) /lpf Urine Mucus (None) /hpf Stool Occult Blood (Negative) 11/25/18 11/25/18 11/25/18 Range/Units 09:45 10:10 10:15 WBC (3.8-10.6) k/uL RBC (3.80-5.40) m/uL Hgb (11.4-16.0) gm/dL Hct (34.0-46.0) % MCV (80.0-100.0) fL MCH (25.0-35.0) pg MCHC (31.0-37.0) g/dL RDW (11.5-15.5) % Plt Count (150-450) k/uL Neutrophils % % Lymphocytes % % Monocytes % % Eosinophils % % Basophils % % Neutrophils # (1.3-7.7) k/uL Lymphocytes # (1.0-4.8) k/uL Monocytes # (0-1.0) k/uL Eosinophils # (0-0.7) k/uL Basophils # (0-0.2) k/uL PT (9.0-12.0) sec INR (<1.2) APTT (22.0-30.0) sec Sodium (137-145) mmol/L Potassium (3.5-5.1) mmol/L Chloride (98-107) mmol/L Carbon Dioxide (22-30) mmol/L Anion Gap mmol/L BUN (7-17) mg/dL Creatinine (0.52-1.04) mg/dL Est GFR (CKD-EPI)AfAm (>60 ml/min/1.73 sqM) Est GFR (CKD-EPI)NonAf (>60 ml/min/1.73 sqM) Glucose (74-99) mg/dL Calcium (8.4-10.2) mg/dL Magnesium 2.2 (1.6-2.3) mg/dL Total Bilirubin (0.2-1.3) mg/dL AST (14-36) U/L ALT (9-52) U/L Alkaline Phosphatase (38-126) U/L Total Protein (6.3-8.2) g/dL Albumin (3.5-5.0) g/dL Amylase (30-110) U/L Lipase (23-300) U/L Urine Color Dark Brown Urine Appearance Cloudy H (Clear) Urine pH 6.5 (5.0-8.0) Ur Specific [place] 1.022 (1.001-1.035) Urine Protein 1+ H (Negative) Urine Glucose (UA) Negative (Negative) Urine Ketones Negative (Negative) Urine Blood Negative (Negative) Urine Nitrite Negative (Negative) Urine Bilirubin Negative (Negative) Urine Urobilinogen 8.0 (<2.0) mg/dL Ur Leukocyte Esterase Small H (Negative) Urine WBC 4 (0-5) /hpf Ur Squamous Epith Cells 2 (0-4) /hpf Amorphous Sediment Rare H (None) /hpf Urine Bacteria Rare H (None) /hpf Hyaline Casts 3 H (0-2) /lpf Urine Mucus Few H (None) /hpf Stool Occult Blood Negative (Negative) - Radiology Data CT shows severe colonic wall thickening involving the sigmoid colon which may reflect nonspecific colitis. Underlying neoplasm not excluded. Proximal to moderate states that in juvenile fluid. No evidence of perforation. X-ray shows an objective bowel gas pattern. (Zenia Leal) Disposition Is patient prescribed a controlled substance at d/c from ED?: No Time of Disposition: 13:02 <Zenia Leal - Last Filed: 11/25/18 12:59> <Michael Long - Last Filed: 11/25/18 13:23> Clinical Impression: Dehydration, Colitis, Hypokalemia Disposition: ADMITTED IP TO THIS HOSP Condition: Stable Instructions (If sedation given, give patient instructions): Acute Nausea and Vomiting (ED) Referrals: Bong Daly DO [Primary Care Provider] - 1-2 days
[2018-11-25 10:04] LABS: Basophils % (A) 0 %; Eosinophils # (A) 0.2 k/uL (0-0.7); Eosinophils % (A) 1 %; HCT 39.2 % (34.0-46.0); HGB 12.6 gm/dL (11.4-16.0); Lymphocytes # (A) 1.3 k/uL (1.0-4.8); Lymphocytes % (A) 9 %; MCH 29.9 pg (25.0-35.0); MCHC 32.1 g/dL (31.0-37.0); MCV 93.1 fL (80.0-100.0); Mean Platelet Volume 7.6; Monocytes # (A) 1.1 k/uL (0-1.0); Monocytes % (A) 8 %; Neutrophils # (A) 11.3 k/uL (1.3-7.7); Neutrophils % (A) 81 %; Platelet Count 566 k/uL (150-450); RBC 4.21 m/uL (3.80-5.40); RDW 14.1 % (11.5-15.5)
[2018-11-25 10:12] LABS: Partial Thromboplastin Time 24.8 sec (22.0-30.0); Prothrombin Time 10.8 sec (9.0-12.0)
[2018-11-25 10:19] LABS: ALT 25 U/L (9-52); AST 15 U/L (14-36); Albumin 3.1 g/dL (3.5-5.0); Alkaline Phosphatase 232 U/L (38-126); Amylase <30 U/L (30-110); Anion Gap 10 mmol/L; Blood Urea Nitrogen 18 mg/dL (7-17); Calcium 9.8 mg/dL (8.4-10.2); Carbon Dioxide 27 mmol/L (22-30); Chloride 98 mmol/L (98-107); Glucose 103 mg/dL (74-99); Lipase 18 U/L (23-300); Sodium 135 mmol/L (137-145); Total Bilirubin 1.1 mg/dL (0.2-1.3); Total Protein 6.2 g/dL (6.3-8.2)
[2018-11-25] MEDS: MORPHINE SULFATE 2 MG/ML SYRINGE IVP STA ×2 (10:31→11:43)
--- NOTE | 2018-11-25 10:33 | XR ---
Abdomen HISTORY: Pain and diarrhea, nausea and vomiting Single view of the abdomen Correlation to prior exam 05/17/2014 Bones show low mineral. Multilevel osteoporotic compression fractures are noted, some of which have d eveloped in the interval. Surgical clips are present in the right upper quadrant. Lung bases are arin r. No pneumoperitoneum or bowel obstruction. Patient is rotated, heart size likely within normal limi ts. Probable vascular calcifications within the pelvis. IMPRESSION: Nonobstructive bowel gas pattern. Additional findings above.
[2018-11-25 10:34] LABS: Amorphous Sediment,Urine Rare /hpf; Appearance,Urine Cloudy (Clear); Bacteria,Urine Rare /hpf; Bilirubin,Urine Negative (Negative); Blood,Urine Negative (Negative); Color,Urine Dark Brown; Glucose,Urine (UA) Negative (Negative); Hyaline Casts,Urine 3 /lpf (0-2); Ketones,Urine Negative (Negative); Leukocyte Esterase,Urine Small (Negative); Mucus,Urine Few /hpf; Nitrite,Urine Negative (Negative); PH, Urine 6.5 (5.0-8.0); Protein,Urine 1+ (Negative); Specific Gravity,Urine 1.022 (1.001-1.035); Squamous Epithelial Cell,Urine 2 /hpf (0-4); WBC,Urine 4 /hpf (0-5)
[2018-11-25] MEDS ORDERED: POTASSIUM CHLORIDE ER 20 MEQ TAB.ER PO STA (11:03)
[2018-11-25] MEDS ORDERED: MORPHINE SULFATE 4 MG/ML SYRINGE IVP STA (11:21)
--- NOTE | 2018-11-25 11:55 | CT ---
EXAMINATION TYPE: CT abdomen pelvis w con DATE OF EXAM: 11/25/2018 COMPARISON: 07/17/2011 HISTORY: RLQ pain CT DLP: 655.8 mGycm CONTRAST: CT scan of the abdomen and pelvis is performed without Oral Contrast and with IV Contrast, patient in jected with 100 mL of Isovue 300. FINDINGS: LUNG BASES-: No visible nodule. No infiltrate. LIVER/GB: Cholecystectomy clips. Multiple hypoattenuating hepatic lesions noted. No space occupyin g hepatic lesion. Biliary tree is of normal caliber. PANCREAS: No inflammation. No distinct mass. SPLEEN: No splenic enlargement. No lesion seen. ADRENALS: No nodule. No thickening. KIDNEYS/BLADDER: No hydronephrosis. No nephrolithiasis. No distinct renal mass. Urinary bladder g rossly unremarkable. BOWEL: Severe colonic wall thickening involving the sigmoid colon may reflect nonspecific colitis. Un derlying neoplasm not excluded. There is proximal to moderate the stasis with intraluminal fluid. No evidence for perforation. No free air or abscess appreciated. Small bowel is of normal caliber. GENITAL ORGANS: No gross abnormality. LYMPH NODES: No greater than 1cm abdominal or pelvic lymph nodes are appreciated. AORTA: No significant abnormality. OSSEOUS STRUCTURES: Multilevel lower thoracic and lumbar compression fractures noted of uncertain age and/or etiology. OTHER: No significant additional abnormality is seen. IMPRESSION: 1. Severe colonic wall thickening involving the sigmoid colon may reflect nonspecific colitis. Underl syed neoplasm not excluded. There is proximal to moderate the stasis with intraluminal fluid. No evid ence for perforation.
[2018-11-25] MEDS ORDERED: ACETAMINOPHEN TAB 325 MG TAB PO PRN (13:03)
[2018-11-25] MEDS ORDERED: NALOXONE 0.4 MG/ML 1 ML VIAL IV PRN (13:03)
[2018-11-25] MEDS ORDERED: ONDANSETRON 4 MG/2 ML VIAL IVP PRN (13:03)
[2018-11-25] MEDS ORDERED: IBUPROFEN 400 MG TAB PO PRN (13:03)
[2018-11-25] MEDS ORDERED: MORPHINE SULFATE 4 MG/ML SYRINGE IV PRN (13:03)
[2018-11-25] MEDS ORDERED: HYDROmorphone 0.5 MG/0.5 ML SYRINGE IVP PRN (13:03)
[2018-11-25] MEDS ORDERED: SODIUM CHLORIDE 0.9% 1,000 ML IV SCH (13:15)
[2018-11-25] MEDS ORDERED: INFLUENZA VACCINE (6 MOS+) 60 MCG/0.5 ML SYRINGE IM ONE (14:30)
[2018-11-25] MEDS ORDERED: MELATONIN 3 MG TABLET PO PRN (23:03)
[2018-11-25] MEDS: LORazepam 1 MG TAB PO SCH (23:52)
[2018-11-25] MEDS: FAMOTIDINE 20 MG TAB PO SCH (23:52)
[2018-11-25] MEDS: BALSALAZIDE DISODIUM 750 MG CAPSULE PO SCH (23:52)
[2018-11-25] MEDS: LACTATED RINGERS 1,000 ML IV SCH (23:53)
--- NOTE | 2018-11-26 01:12 | HP ---
HISTORY AND PHYSICAL DATE OF ADMISSION: 11/25/2018. DATE OF SERVICE: 11/25/2018. PRESENTING COMPLAINT: Diarrhea, nausea, vomiting. HISTORY OF PRESENTING COMPLAINT: This is a pleasant 78-year-old patient of Dr. Daly whose chronic stable medical conditions include asthma, GERD hyperlipidemia, hypertension, osteoarthritis, hypothyroid, diverticulosis, hemorrhoids, scoliosis, chronic back pain, hypothyroid. The patient also has colitis for which she is on medication by Dr. Kristi Powers. The patient was constipated about 4 weeks ago and patient whose daughter is a nurse gave a laxative. Following that the patient started to develop severe abdominal cramping and a lot of diarrhea for at least 5 days. The patient continues to have diarrhea, multiple stools, also nausea and vomiting. The vomiting is better but still gets nausea. The patient feels very sick and does not really have an appetite. Tired, rundown, exhausted. No fever. No chills. The patient's son lives next, he finally decided to bring her in. Did have a CT scan in the ER which showed significant thickening of the sigmoid colon. Admitted for the same. REVIEW OF SYSTEMS: CONSTITUTIONAL: Weak, tired, rundown. HEENT: None. RESPIRATORY: None. GASTROINTESTINAL: As above. GENITOURINARY: None. MUSCULOSKELETAL: Arthritic pain in joints. DERMATOLOGICAL: None. HEMATOLOGICAL: None. PSYCHIATRY: Slightly forgetful. NEUROLOGICAL: Generalized weakness. PAST MEDICAL HISTORY: Asthma, GERD, hypertension, hyperlipidemia, osteoarthritis, hypothyroidism, ulcerative colitis, diverticulosis, hemorrhoids, scoliosis, back pain. PAST SURGICAL HISTORY: Appendectomy, breast surgery, cholecystectomy, hysterectomy, joint replacement, bilateral total knee arthroplasty, bilateral cataract lens implant, bilateral breast biopsy, benign colonoscopy, pain injections. PSYCH HISTORY: Anxiety. SOCIAL HISTORY: The patient lives on her own. Son's home is attached. Does use a cane. No smoking. No alcohol. She has Visiting [place]. FAMILY HISTORY: Reviewed, noncontributory to presentation. HOME MEDICATIONS: 1. Zofran 48 mg every 12 p.r.n. 2. Isoptin SR 240 mg a day. 3. Vitamin D3, 2000 units a day. 4. Zantac 150 mg b.i.d. 5. Qvar 2 puffs b.i.d. 6. Ventolin HFA 1 or 2 puffs q.i.d. p.r.n. 7. Asacol 1600 mg p.o. t.i.d. 8. Synthroid 175 mcg a day. 9. Lorazepam 1 mg at bedtime. 10.Bayard 5 one tablet every 8 p.r.n. 11.Kimber 180 mg daily. 12.Celexa 10 mg daily. ALLERGIES: SULFA, PRIYA INHIBITOR, LIPITOR, ATROPINE, CEPHALOSPORIN, DICYCLOMINE, LOMOTIL, DARVOCET N100, STATINS, some of these are side effects. PHYSICAL EXAMINATION: Temperature 98.3, pulse 93, respiratory rate 18, blood pressure 108/88, pulse ox 98% on room air. GENERAL APPEARANCE: Average build, lying in bed, tired-appearing. EYES: Pupils equal. Conjunctivae normal. HEENT: External nose and ears normal. Oral cavity dry mucous membranes' NECK: JVD not raised. Mass not palpable. Respiratory effort normal. LUNGS: Decreased breath sounds. CARDIOVASCULAR: 1st and 2nd sounds. No edema. ABDOMEN: Mild diffuse tenderness. No guarding or rigidity. Liver and spleen not palpable. LYMPHATIC: No lymph node palpable in the neck or axillae. PSYCHIATRY: Alert, oriented x3. The patient is able to answer most questions. NEUROLOGICAL: Pupils equal. Cranial nerves grossly intact. Power and sensation grossly intact. INVESTIGATIONS: White count 14, hemoglobin 12.6, platelets ____, potassium 3, BUN 18, creatinine 0.57, albumin 3.1. Stool occult blood negative. C difficile negative. CT scan of the abdomen and pelvis shows severe thickening of the sigmoid colon with fluid retention proximal to that. ASSESSMENT: 1. This patient who had constipation 4 weeks ago, was given laxatives, developed severe abdominal cramping with diarrhea since then. CT scan of the abdomen showing severe sigmoid colon thickening with some fluid collection proximal to that. The patient has underlying ulcerative colitis. This could be a possible flareup of the same. Need to rule out any obstruction. The patient may need a colonoscopy. 2. Moderate persistent asthma. 3. Gastroesophageal reflux disease. 4. Hyperlipidemia. 5. Essential hypertension. 6. Primary osteoarthritis. 7. Hypothyroidism. The patient is on a rather hefty dose for her age and body build. Need to rule out over replacement. 8. Hemorrhoids. 9. Chronic scoliosis. PLAN: The patient is rather ill-appearing, rather dehydrated, weak, tired. We will start the patient on IV fluids and also add steroids. GI has already been consulted. We will switch the patient to clear liquids until further evaluation. Other home medications reviewed. Will do fall precautions. The patient is rather sick and will need to be in the hospital for at least 2 nights. Hence patient will be made inpatient. OLESYA / JUANN: [id number] /
[2018-11-26] MEDS ORDERED: LEVOTHYROXINE 50 MCG TAB PO SCH (06:30)
[2018-11-26] MEDS: FLUTICASONE 110 MCG INHALER INHALATION SCH ×2 (07:32→19:16)
[2018-11-26 07:50] LABS: Blood Urea Nitrogen 11 mg/dL (7-17); Calcium 8.5 mg/dL (8.4-10.2); Carbon Dioxide 30 mmol/L (22-30); Glucose 74 mg/dL (74-99); Potassium 2.9 mmol/L (3.5-5.1); Sodium 136 mmol/L (137-145)
[2018-11-26 07:51] LABS: Anion Gap 7 mmol/L; Chloride 99 mmol/L (98-107)
[2018-11-26] MEDS ORDERED: PANTOPRAZOLE 40 MG/10 ML VIAL IV SCH (09:00)
--- NOTE | 2018-11-26 09:06 | P.CONS ---
History of Present Illness - Reason for Consult Consult date: 11/26/18 Colitis Requesting physician: [facility] - Chief Complaint Abdominal pain - History of Present Illness 78-year-old female patient of Drs. Daly and Kristi Powers with a past medical history ulcerative colitis maintained on Asacol diagnosed in 2008, hypertension, colonic diverticulosis, chronic back pain, hyperlipidemia, GERD, possible dementia. Patient presented with acute abdominal pain nausea vomiting that started Sunday evening followed by several episodes of blood-tinged diarrhea. Nursing reports patient was constipated received laxatives prior to admission. Denies hematemesis or melena. Last bowel movement was yesterday reported as nonbloody per nursing staff. No fever or chills. No recent travels. No change in medications. No recent antibiotics. She was recently seen in the office November 06 for follow-up advised IBD maintenance with Asacol. No steroids were provided. Last colonoscopy record was in [address] abdomen severe colonic wall thickening involving the sigmoid may reflect nonspecific colitis underlying neoplasm not excluded. No free air abscess or perforation. White count 14. Hemoglobin 12.6. BUN 18. Crit 0.5. INR 1.0. Platelet 566. FOBT negative. C. diff negative. Review of Systems Constitutional: Denies fever, chills, sweats, weight gain, or loss. HEENT: Negative for migraines, blurred vision or loss, earaches, drainage, tinnitus, oral mucosal lesions, dysphagia, or odynophagia. CARDIAC: Negative for chest pain, arrhythmias, or palpitation. RESPIRATORY: Negative for shortness of breath, hemoptysis, cough, or sputum production. GI: See HPI for pertinent findings. : Negative for hematuria, urgency, frequency, polyuria, or dysuria. GYNc: Denies possibility of . Negative vaginal discharge. MUSCULOSKELETAL: Negative for muscle aches, swelling, arthritis, and arthralgias. NEUROLOGIC: Negative for stroke or TIA. ENDOCRINE: Negative for thyroid problems. SKIN: Negative for rash or itching. PSYCHIATRIC: Negative history for depression and anxiety Past Medical History Past Medical History: Asthma, GERD/Reflux, Hyperlipidemia, Hypertension, Osteoarthritis (OA), Thyroid Disorder Additional Past Medical History / Comment(s): Ventricular arrhythmia, ulcerative colitis, IBS, diverticular disease, ischemic bowel treated with antibiotics, hemorrhoids, scoliosis, back pain, Raynaulds bilaterally, osteoporosis, hypothyroid, statins-elevated LFT, sinus problems. History of Any Multi-Drug Resistant Organisms: None Reported Past Surgical History: Appendectomy, Breast Surgery, Cholecystectomy, Hysterectomy, Joint Replacement, Tonsillectomy Additional Past Surgical History / Comment(s): Bilateral total knee arthroplasty, hilda cataracts/lens implants, bilateral breast biopsies-benign, colonoscopies, pain injections. Past Anesthesia/Blood Transfusion Reactions: No Reported Reaction Past Psychological History: Anxiety Additional Psychological History / Comment(s): Pt resides in her own home that is attached to her son's home, [place]. She uses a cane to ambulate. She no longer drives. She has Visiting [place]. Smoking Status: Never smoker Past Alcohol Use History: None Reported Past Drug Use History: None Reported - Past Family History Mother Family Medical History: No Reported History Additional Family Medical History / Comment(s): Mother was obese and an alcoholic Father Additional Family Medical History / Comment(s): Father was an alcoholic. Medications and Allergies Home Medications Medication Instructions Recorded Confirmed Type Albuterol Sulfate [Ventolin HFA] 1 - 2 puff INHALATION RT-QID PRN 05/17/14 11/25/18 History Beclomethasone Dipropionate [Qvar 2 puff INHALATION RT-BID 05/17/14 11/25/18 History 80 mcg/puff] LORazepam [Lorazepam] 1 mg PO HS 05/17/14 11/25/18 History Levothyroxine Sodium [Synthroid] 175 mcg PO DAILY 05/17/14 11/25/18 History Mesalamine [Asacol Hd] 1,600 mg PO TID 05/17/14 11/25/18 History Citalopram Hydrobromide [CeleXA] 10 mg PO DAILY 03/22/16 11/25/18 History HYDROcodone/APAP 5-325MG [[place] 1 tab PO Q8H PRN 03/08/17 11/25/18 History 5-325] Ranitidine HCl 150 mg PO BID 03/08/17 11/25/18 History Cholecalciferol (Vitamin D3) 2,000 unit PO DAILY 02/14/18 11/25/18 History [Vitamin D3] Fexofenadine HCl [Kimber Allergy] 180 mg PO DAILY 02/14/18 11/25/18 History Verapamil Sr [Isoptin Sr] 240 mg PO DAILY 02/14/18 11/25/18 History Ondansetron HCl [Zofran] 4 - 8 mg PO Q12H PRN 11/25/18 11/25/18 History Allergies Allergy/AdvReac Type Severity Reaction Status Date / Time Sulfa (Sulfonamide Allergy Severe Rash/Hives Verified 11/25/18 12:02 Antibiotics) PRIYA Inhibitors Allergy Unknown Verified 11/25/18 12:02 atorvastatin calcium Allergy Swelling Verified 11/25/18 12:02 [From Lipitor] atropine sulfate Allergy Unknown Verified 11/25/18 12:02 [From Lomotil] Cephalosporins Allergy Unknown Verified 11/25/18 12:02 dicyclomine HCl [From Bentyl] Allergy Nausea Verified 11/25/18 12:02 diphenoxylate HCl Allergy Unknown Verified 11/25/18 12:02 [From Lomotil] propoxyphene napsylate Allergy Unknown Verified 11/25/18 12:02 [From Darvocet-N 100] Zwlqjmz-[id number]-Xiv Reductase Allergy muscle pain Verified 11/25/18 12:02 Inhibitor acetaminophen AdvReac Unknown Verified 11/25/18 12:02 [From Darvocet-N 100] lopidimine Allergy Unknown Uncoded 02/14/18 10:53 Physical Exam Vitals: Vital Signs Temp Pulse Pulse Pulse Resp BP BP 11/26/18 08:00 98.2 F 78 18 161/67 11/26/18 04:00 83 16 11/26/18 00:00 83 16 11/25/18 23:53 98.5 F 83 16 125/78 11/25/18 20:00 83 16 11/25/18 15:40 98.2 F 92 18 158/79 11/25/18 14:08 83 18 143/73 11/25/18 10:26 85 20 147/72 Pulse Ox 11/26/18 08:00 99 11/26/18 04:00 11/26/18 00:00 11/25/18 23:53 97 11/25/18 20:00 11/25/18 15:40 100 11/25/18 14:08 97 11/25/18 10:26 97 Intake and Output 11/25/18 11/26/18 11/26/18 22:59 06:59 14:59 Intake Total 440 400 Balance 440 400 Intake: Oral 440 300 Other 100 Other: Voiding Method Toilet Toilet # Voids 1 2 General appearance: The patient is alert, oriented, in no acute distress. HET: Head is normocephalic and atraumatic. Pupils are equal and reactive. Oropharynx is clear without lesions. Neck: Supple without lymphadenopathy. Trachea midline. Heart: S1 S2. Regular rate and rhythm. Lungs: No crackles or wheezes are heard. Abdomen: Soft, very mild tenderness bilateral lower abdomen, nondistended with bowel sounds. No peritoneal signs. No palpable organomegaly or masses. Extremities: Normal skin color and turgor. No cyanosis, rash, ulceration, clubbing, or edema. Radial and pedal pulses are 2/4 bilaterally. Neurological: No focal deficits. Strength and sensation are grossly intact. Results CBC & Chem 7: 11/27/18 09:08 11/27/18 09:08 Labs: Abnormal Lab Results - Last 24 Hours (Table) 11/25/18 11/25/18 11/25/18 Range/Units 09:45 09:45 10:15 WBC 14.0 H (3.8-10.6) k/uL Plt Count 566 H (150-450) k/uL Neutrophils # 11.3 H (1.3-7.7) k/uL Monocytes # 1.1 H (0-1.0) k/uL Sodium 135 L (137-145) mmol/L Potassium 3.0 L (3.5-5.1) mmol/L BUN 18 H (7-17) mg/dL Creatinine (0.52-1.04) mg/dL Glucose 103 H (74-99) mg/dL Alkaline Phosphatase 232 H (38-126) U/L Total Protein 6.2 L (6.3-8.2) g/dL Albumin 3.1 L (3.5-5.0) g/dL Amylase <30 L (30-110) U/L Lipase 18 L (23-300) U/L TSH (0.465-4.680) mIU/L Urine Appearance Cloudy H (Clear) Urine Protein 1+ H (Negative) Ur Leukocyte Esterase Small H (Negative) Amorphous Sediment Rare H (None) /hpf Urine Bacteria Rare H (None) /hpf Hyaline Casts 3 H (0-2) /lpf Urine Mucus Few H (None) /hpf 11/26/18 Range/Units 07:10 WBC (3.8-10.6) k/uL Plt Count (150-450) k/uL Neutrophils # (1.3-7.7) k/uL Monocytes # (0-1.0) k/uL Sodium 136 L (137-145) mmol/L Potassium 2.9 L (3.5-5.1) mmol/L BUN (7-17) mg/dL Creatinine 0.51 L (0.52-1.04) mg/dL Glucose (74-99) mg/dL Alkaline Phosphatase (38-126) U/L Total Protein (6.3-8.2) g/dL Albumin (3.5-5.0) g/dL Amylase (30-110) U/L Lipase (23-300) U/L TSH 0.020 L (0.465-4.680) mIU/L Urine Appearance (Clear) Urine Protein (Negative) Ur Leukocyte Esterase (Negative) Amorphous Sediment (None) /hpf Urine Bacteria (None) /hpf Hyaline Casts (0-2) /lpf Urine Mucus (None) /hpf Microbiology - Last 24 Hours (Table) 11/25/18 11:00 Stool Culture - Preliminary Stool CT scan - abdomen: report reviewed (Dr. Das) Assessment and Plan (1) Exacerbation of ulcerative colitis Narrative/Plan: 78 -year-old female presents with acute left-sided abdominal pain nonbloody diarrhea with previous history of constipation over the last few weeks. Computed tomography scan reports left-sided colonic thickening possible infectious possible inflammatory. An underlying superimposed infectious colitis cannot be excluded stool studies pending. Current Visit: Yes Status: Acute Code(s): K51.90 - ULCERATIVE COLITIS, UNSPECIFIED, WITHOUT COMPLICATIONS SNOMED Code(s): 330490498 Plan: 1. Will advance to low residue diet abdominal pain minimal. Colazal 750mg 3 tablets 3 times a day. We'll check CRP and sed rate. No steroids for now. Will follow with you. Daily CBC BMP. Patient is scheduled for outpatient colonoscopy December [address] Powers. Thank you for this kind referral and the opportunity to participate in the care of your patient. This consultation was discussed with Dr. Das. The impression and plan of care have been directed as dictated.
[2018-11-26] MEDS: ENOXAPARIN 40 MG/0.4 ML SYRINGE SQ SCH (09:07)
[2018-11-26] MEDS: BALSALAZIDE DISODIUM 750 MG CAPSULE PO SCH ×3 (09:09→22:35)
[2018-11-26] MEDS: LACTATED RINGERS 1,000 ML IV SCH ×3 (09:09→23:58)
[2018-11-26] MEDS: CITALOPRAM HYDROBROMIDE 10 MG TAB PO SCH (09:09)
[2018-11-26] MEDS: FAMOTIDINE 20 MG TAB PO SCH ×2 (09:10→22:35)
[2018-11-26] MEDS: ALPRAZolam 0.25 MG TAB PO PRN (09:10)
[2018-11-26] MEDS: VERAPAMIL SR 240 MG TABLET.ER PO SCH (09:10)
[2018-11-26 09:34] LABS: T4, Free (Free Thyroxine) 1.61 ng/dL (0.78-2.19)
[2018-11-26 12:15] VITALS: BMI 29.8
[2018-11-26] MEDS: POTASSIUM CHLORIDE ER 20 MEQ TAB.ER PO SCH ×2 (16:11→17:37)
--- NOTE | 2018-11-26 16:21 | CT ---
EXAMINATION TYPE: CT brain wo con DATE OF EXAM: 11/26/2018 COMPARISON: None HISTORY: Confusion CT DLP: 1040.4 mGycm Automated exposure control for dose reduction was used. FINDINGS: Generalized moderate to severe degenerative change. Low-attenuation the white matter seen bilaterally are nonspecific but most typical remote microvascular ischemia. Calvarium intact. No midline shift or mass effect. Nasal septal deviation noted. Changes of chronic s inusitis noted. IMPRESSION: DEGENERATIVE CHANGE WITH NONSPECIFIC WHITE MATTER CHANGES MOST TYPICAL REMOTE MICROVASCULAR ISCHEMIA. NO ACUTE HEMORRHAGE OR MASS EFFECT. CORRELATE FOR SINUSITIS.
--- NOTE | 2018-11-26 21:11 | XR ---
PROCEDURE: XR hand complete LT - 3V DATE AND TIME: 11/26/2018 8:11 PM CLINICAL INDICATION: Pt fell and injured left hand TECHNIQUE: AP and lateral and oblique COMPARISON: 08/16/2016 FINDINGS: There is diffuse left hand soft tissue swelling; the soft tissues are otherwise unremarkable. There is acute angulation at the second and third metacarpal necks, consistent with nondisplaced mild ly apex-lateral angulated fractures. Fractures do not appear to involve the second and third metacarp ophalangeal joints. There is generalized osteopenia, seen on the prior study. Also seen on the prior study are the multifocal advanced osteoarthritis changes are noted, particular ly at the radiocarpal first carpocarpal articulations. IMPRESSION: FRACTURES OF THE SECOND AND THIRD METACARPAL NECKS.
[2018-11-26] MEDS: HYDROcodone/APAP 5-325MG 1 EACH TAB PO PRN (21:36)
[2018-11-26] MEDS: LORazepam 1 MG TAB PO SCH (21:46)
--- NOTE | 2018-11-27 06:02 | PN ---
PROGRESS NOTE DATE OF SERVICE: 11/26/2018 PRESENTING COMPLAINT: Tired. INTERVAL HISTORY: This patient was seen by me on 11/26/2018. The patient was admitted, initially had constipation sometimes then had severe abdominal cramping with diarrhea and there was severe sigmoid colon thickening shown on the CT scan. I was called last night that patient had taken a fall with a skin tear. This patient this morning is more lethargic. Does appear rather tired, getting IV fluids. When I saw the patient no family was present. REVIEW OF SYSTEMS: Could not be done as patient is somewhat tired, though arousable. CURRENT MEDICATIONS: Current medications are reviewed that include IV fluids. PHYSICAL EXAMINATION: On examination, temperature 98.2, pulse 72, respiratory 18, blood pressure 161/67, pulse ox 99% on room air. GENERAL APPEARANCE: Lying in bed, tired, but arousable. EYES: Pupils equal. Conjunctivae normal. HEENT: External appearance of nose and ears normal. Oral cavity dry. NECK: JVD unable to assess. Mass not palpable. RESPIRATORY: Effort normal. LUNGS: Diminished breath sounds. CARDIOVASCULAR: First and second sounds normal. No edema. ABDOMEN: Minimal tenderness. No guarding or rigidity. Liver and spleen not palpable. PSYCHIATRY: Patient is tired, but arousable. MUSCULOSKELETAL: Some swelling of the left hand. NEUROLOGICAL: No focal signs. INVESTIGATIONS: Potassium 2.9. BUN 11, creatinine 0.51. TSH . CT scan of the brain nil acute. X- ray of the left hand fractures of the second and third metacarpal necks. ASSESSMENT: 1. Possible acute sigmoid colitis. The patient has underlying ulcerative colitis. Follow up with GI. 2. Moderate persistent asthma. 3. Gastroesophageal reflux disease. 4. Hyperlipidemia. 5. Essential hypertension. 6. Primary osteoarthritis. 7. Hyperthyroidism from over replacement. Will cut back the dose of Synthroid. 8. Chronic hemorrhoids. 9. Chronic scoliosis. 10.Acute metabolic encephalopathy. No focal symptoms. CT scan of brain negative probably from dehydration. 11.Left hand second and third metacarpal neck fracture secondary to fall. 12.Severe hypokalemia from diarrhea. Follow potassium. PLAN: Continue with IV hydration. Patient was seen by GI. Will follow with them. Will get an orthopedic consultation for the left hand. Follow up patient closely. Prognosis guarded. Currently no family is present at the bedside. Also check labs in the morning. MMODL / IJN: [id number] /
[2018-11-27] MEDS: LACTATED RINGERS 1,000 ML IV SCH ×4 (08:47→23:09)
[2018-11-27] MEDS: FLUTICASONE 110 MCG INHALER INHALATION SCH ×2 (08:52→19:43)
[2018-11-27] MEDS: BALSALAZIDE DISODIUM 750 MG CAPSULE PO SCH ×3 (08:56→20:26)
[2018-11-27] MEDS: HYDROcodone/APAP 5-325MG 1 EACH TAB PO PRN ×2 (08:56→17:03)
[2018-11-27] MEDS: ENOXAPARIN 40 MG/0.4 ML SYRINGE SQ SCH (08:58)
[2018-11-27] MEDS: VERAPAMIL SR 240 MG TABLET.ER PO SCH (08:58)
[2018-11-27] MEDS: FAMOTIDINE 20 MG TAB PO SCH ×2 (08:58→20:26)
[2018-11-27] MEDS: CITALOPRAM HYDROBROMIDE 10 MG TAB PO SCH (08:58)
--- NOTE | 2018-11-27 09:36 | P.PN ---
Subjective This is a pleasant 6 years old female with past medical history of ulcerative colitis, ischemic bowel disease, treated with antibiotics, hemorrhoids, chronic back pain, Raynaud's bilaterally, osteoporosis, hypothyroidism. Patient's presents with bloody diarrhea and nausea vomiting and abdominal pain. Patient has been evaluated by GI team and she was started on balsalazide, no steroids. She is on Ringer lactate at 125 which is lower to 75 mL per hour. Patient also has been confused and she is on one-to-one. She fell and had left hand trauma, with x-ray showing fractures of the second and third metacarpal necks, was nondisplaced and mildly angulated fracture Vitas is stable, patient is afebrile. Labs shows leukocytosis on admission with 14 K. Hypokalemia. Magnesium 2.2 which is within normal limits. Creatinine is 0.5, C-reactive protein is elevated at 171, TSH within normal at 1.6. ESR is elevated at 36. UA is showing dehydration picture rather than infection. Occult blood in stools negative. C. diff is negative. Abdomen CT: Severe colitis. Underlying neoplasm is not excluded. Review of systems: Is limited by patient confuaion CONSTITUTIONAL: No fever, no malaise, no fatigue. HEENT: No recent visual problems or hearing problems. Denied any sore throat. CARDIOVASCULAR: No orthopnea, PND, no palpitations, no syncope. PULMONARY: No shortness of breath, no cough, no hemoptysis. GASTROINTESTINAL: Normoactive bowel sounds. NEUROLOGICAL: No headaches, no weakness, no numbness. HEMATOLOGICAL: Denies any bleeding or petechiae. GENITOURINARY: Denies any burning micturition, frequency, or urgency. ENDOCRINE: Denies any polyuria or polydipsia. Medication: Tylenol, Xanax, balsalazide, Celexa, Lovenox, Pepcid, Flovent, Gates, Motrin, ringer lactate, levothyroxine, Ativan, melatonin, Narcan, Zofran, there are palpable. Objective - Vital Signs Vital signs: Vital Signs Temp 97.9 F 11/27/18 05:00 Pulse 66 11/27/18 05:00 Resp 16 11/27/18 05:00 BP 118/66 11/27/18 05:00 Pulse Ox 97 11/27/18 05:00 Intake & Output 11/26/18 11/27/18 11/27/18 18:59 06:59 18:59 Intake Total 600 1000 Balance 600 1000 Weight 73.936 kg Intake: Intake, IV Titration 1000 Amount Lactated Ringers 1,000 ml 1000 @ 125 mls/hr IV .Q8H [facility] Rx#:[id number] Oral 500 Other 100 Other: Voiding Method Toilet Bedside Commode Diaper # Voids 1 1 # Bowel Movements 7 - Exam GENERAL: The patient is alert and oriented x3, not in any acute distress. Well developed, well nourished. HEENT: Pupils are round and equally reacting to light. EOMI. No scleral icterus. No conjunctival pallor. Normocephalic, atraumatic. No pharyngeal erythema. No thyromegaly. CARDIOVASCULAR: S1 and S2 present. No murmurs, rubs, or gallops. PULMONARY: Chest is clear to auscultation, no wheezing or crackles. -ABDOMEN: Soft, mild to moderate general abdominal tenderness, no rebound tenderness, nondistended, normoactive bowel sounds. No palpable organomegaly. MUSCULOSKELETAL: No joint swelling or deformity. EXTREMITIES: No cyanosis, clubbing, or pedal edema. NEUROLOGICAL: Gross neurological examination did not reveal any focal deficits. SKIN: No rashes. - Labs CBC & Chem 7: 11/25/18 09:45 11/26/18 18:52 Labs: Abnormal Lab Results - Last 24 Hours (Table) 11/26/18 11/26/18 11/26/18 Range/Units 07:10 15:12 18:52 ESR 36 H (0-20) mm/hr Potassium 3.1 L (3.5-5.1) mmol/L C-Reactive Protein 171.0 H (<10.0) mg/L Assessment and Plan Assessment: Ulcerative colitis flares up Altered mental status, mostly metabolic encephalopathy secondary to above fractures of the second and third metacarpal necks, nondisplaced History of ulcerative colitis History of ischemic bowel disease History of hemorrhoids Chronic back pain History of Raynaud's phenomenon bilaterally History of osteoporosis Hypothyroidism Plan: This is a pleasant 6 years old female who presents with acute ulcerative colitis flares up and metabolic encephalopathy. Also she had fracture of her left hand. We'll continue with both solids side, continue with IV fluids. Pain management. GI consult is appreciated. Call orthopedic consult for hand fractu re. Patient does not seem in much distress now for pain. There were lower some of her medication affecting her alertness. Stop Xanax and Ativan 1 mg at bedtime . Discontinue ibuprofen. Continue with sitter at bedside for safety.Labs and medication were reviewed.. Continue same treatment. Continue with symptomatic treatment. Resume home medication. Monitor lytes and vitals. DVT and GI prophylaxis. Further recommendations of the clinical course of the patient DVT prophylaxis: Subcutaneous Lovenox GI Prophylaxis: Pepcid PT/OT: Pending Prognosis is guarded
[2018-11-27 09:54] LABS: Basophils % (A) 1 %; Eosinophils # (A) 0.3 k/uL (0-0.7); Eosinophils % (A) 3 %; HCT 34.6 % (34.0-46.0); HGB 11.1 gm/dL (11.4-16.0); Hypochromasia Slight; Lymphocytes # (A) 1.9 k/uL (1.0-4.8); Lymphocytes % (A) 25 %; MCH 30.6 pg (25.0-35.0); MCHC 32.2 g/dL (31.0-37.0); MCV 95.2 fL (80.0-100.0); Monocytes # (A) 0.6 k/uL (0-1.0); Monocytes % (A) 8 %; Neutrophils # (A) 4.8 k/uL (1.3-7.7); Neutrophils % (A) 62 %; Platelet Count 519 k/uL (150-450); RBC 3.63 m/uL (3.80-5.40); RDW 14.3 % (11.5-15.5); WBC 7.7 k/uL (3.8-10.6)
[2018-11-27 10:03] LABS: Blood Urea Nitrogen 10 mg/dL (7-17); Calcium 8.4 mg/dL (8.4-10.2); Carbon Dioxide 28 mmol/L (22-30); Chloride 103 mmol/L (98-107); Glucose 65 mg/dL (74-99); Magnesium 1.8 mg/dL (1.6-2.3)
[2018-11-27 10:41] LABS: Potassium 3.5 mmol/L (3.5-5.1)
[2018-11-27 10:46] LABS: Anion Gap 5 mmol/L; Sodium 136 mmol/L (137-145)
[2018-11-27 12:22] LABS: C Reactive Protein 130.3 mg/L (<10.0)
--- NOTE | 2018-11-27 12:35 | P.PN ---
Subjective Progress Note Date: 11/27/18 Principal diagnosis: Exacerbation ulcerative colitis Feels well. Still passing small amounts of loose nonbloody bowel movements. Afebrile. CRP 171 yesterday presently 130. White count 7.7. Hemoglobin 11.1. Patient fell last night bruised her left hand/wrist. Orthopedics consulted. Objective - Vital Signs Vital signs: Vital Signs Temp 97.9 F 11/27/18 05:00 Pulse 66 11/27/18 08:00 Resp 16 11/27/18 08:00 BP 118/66 11/27/18 05:00 Pulse Ox 97 11/27/18 05:00 Intake & Output 11/26/18 11/27/18 11/27/18 18:59 06:59 18:59 Intake Total 600 1000 Output Total 1 Balance 600 1000 -1 Weight 73.936 kg Intake: Intake, IV Titration 1000 Amount Lactated Ringers 1,000 ml 1000 @ 125 mls/hr IV .Q8H [facility] Rx#:[id number] Oral 500 Other 100 Output: Urine 1 Other: Voiding Method Toilet Bedside Commode Bedside Commode Diaper Diaper # Voids 1 1 # Bowel Movements 7 2 - Exam General appearance: The patient is alert, oriented, in no acute distress. HET: Head is normocephalic and atraumatic. Pupils are equal and reactive. Oropharynx is clear without lesions. Neck: Supple without lymphadenopathy. Trachea midline. Heart: S1 S2. Regular rate and rhythm. Lungs: No crackles or wheezes are heard. Abdomen: Soft, mild tenderness to the left lower quadrant, nondistended with bowel sounds. No peritoneal signs. No palpable organomegaly or masses. Extremities: Left hand wrapped with visible bruising mild edema. Normal skin color and turgor. Radial and pedal pulses are 2/4 bilaterally. Neurological: No focal deficits. Strength and sensation are grossly intact. - Labs CBC & Chem 7: 11/28/18 08:36 11/28/18 08:36 Labs: Abnormal Lab Results - Last 24 Hours (Table) 11/26/18 11/26/18 11/27/18 Range/Units 15:12 18:52 09:08 RBC (3.80-5.40) m/uL Hgb (11.4-16.0) gm/dL Plt Count (150-450) k/uL ESR 36 H (0-20) mm/hr Sodium 136 L (137-145) mmol/L Potassium 3.1 L (3.5-5.1) mmol/L Glucose 65 L (74-99) mg/dL C-Reactive Protein 130.3 H (<10.0) mg/L 11/27/18 Range/Units 09:08 RBC 3.63 L (3.80-5.40) m/uL Hgb 11.1 L (11.4-16.0) gm/dL Plt Count 519 H (150-450) k/uL ESR (0-20) mm/hr Sodium (137-145) mmol/L Potassium (3.5-5.1) mmol/L Glucose (74-99) mg/dL C-Reactive Protein (<10.0) mg/L Assessment and Plan (1) Exacerbation of ulcerative colitis Narrative/Plan: 78 -year-old female presents with acute left-sided abdominal pain nonbloody diarrhea with previous history of constipation over the last few weeks. Computed tomography scan reports left-sided colonic thickening. Current Visit: Yes Status: Acute Code(s): K51.90 - ULCERATIVE COLITIS, UNSPECIFIED, WITHOUT COMPLICATIONS SNOMED Code(s): 751445839 (2) Status post fall Current Visit: Yes Status: Acute Code(s): Z91.81 - HISTORY OF FALLING SNOMED Code(s): 363755662 (3) Elevated C-reactive protein (CRP) Current Visit: Yes Status: Acute Code(s): R79.82 - ELEVATED C-REACTIVE PROTEIN (CRP) SNOMED Code(s): 935112378543686 Plan: 1. Continue with present medical therapy. We'll start steroids IV Solu-Medrol 40 mg every 12 hours. CRP in a.m. Will obtain CEA. Outpatient colonoscopy scheduled with Dr. Powers December 04. Low residue diet. We'll continue to follow. Assessment and plan a care discussed with Dr. Das
[2018-11-27] MEDS: methylPREDNISolone SOD SUCCI 40 MG/ML 1 ML VIAL IV SCH ×2 (13:47→20:26)
[2018-11-28] MEDS: LEVOTHYROXINE 112 MCG TAB PO SCH (06:03)
[2018-11-28] MEDS: HYDROcodone/APAP 5-325MG 1 EACH TAB PO PRN ×2 (06:05→20:27)
[2018-11-28] MEDS: FLUTICASONE 110 MCG INHALER INHALATION SCH ×2 (07:50→20:43)
--- NOTE | 2018-11-28 07:53 | P.PN ---
Subjective This is a pleasant 6 years old female with past medical history of ulcerative colitis, ischemic bowel disease, treated with antibiotics, hemorrhoids, chronic back pain, Raynaud's bilaterally, osteoporosis, hypothyroidism. Patient's presents with bloody diarrhea and nausea vomiting and abdominal pain. Patient has been evaluated by GI team and she was started on balsalazide, no steroids. She is on Ringer lactate at 125 which is lower to 75 mL per hour. Patient also has been confused and she is on one-to-one. She fell and had left hand trauma, with x-ray showing fractures of the second and third metacarpal necks, was nondisplaced and mildly angulated fracture Vitas is stable, patient is afebrile. Labs shows leukocytosis on admission with 14 K. Hypokalemia. Magnesium 2.2 which is within normal limits. Creatinine is 0.5, C-reactive protein is elevated at 171, TSH within normal at 1.6. ESR is elevated at 36. UA is showing dehydration picture rather than infection. Occult blood in stools negative. C. diff is negative. Abdomen CT: Severe colitis. Underlying neoplasm is not excluded. 11/28/2018 Patient is more awake and alert today compared to yesterday. Today she couldn't recognize she is in the hospital in [facility] which she could not do yesterday. However patient still confused to time and person. Patient she knows why she hospital "because in 6 to my stomach" patient still complains fr om left lower quadrant pain, improving. Patient had several bowel movements yesterday during the day. However she hasn't only few during the night. Patient was started on steroids yesterday plus the balsalazide. GI team are following the case. CR protein is trending down. Patient she had left hand metacarpal fractures. Orthopedic been consulted . physical therapy are on the case and integumentary evaluated the patient. Medication: Tylenol, Xanax, balsalazide, Celexa, Lovenox, Pepcid, Flovent, [place], Motrin, ringer lactate, levothyroxine, Ativan, melatonin, Narcan, Zofran, there are palpable. Objective - Vital Signs Vital signs: Vital Signs Temp 97.6 F 11/28/18 04:42 Pulse 72 11/28/18 04:42 Resp 18 11/28/18 04:42 BP 161/76 11/28/18 04:42 Pulse Ox 96 11/28/18 04:42 Intake & Output 11/27/18 11/28/18 11/28/18 18:59 06:59 18:59 Intake Total 290 900 Output Total 2 Balance 288 900 Intake: Intake, IV Titration 900 Amount Lactated Ringers 1,000 ml 900 @ 75 mls/hr IV .[id number] [facility] Rx#:[id number] Oral 290 Output: Urine 2 Other: Voiding Method Bedside Commode Bedside Commode Diaper Diaper Incontinent # Voids 1 # Bowel Movements 1 - Exam GENERAL: The patient is alert and oriented x3, not in any acute distress. Well developed, well nourished. HEENT: Pupils are round and equally reacting to light. EOMI. No scleral icterus. No conjunctival pallor. Normocephalic, atraumatic. No pharyngeal erythema. No thyromegaly. CARDIOVASCULAR: S1 and S2 present. No murmurs, rubs, or gallops. PULMONARY: Chest is clear to auscultation, no wheezing or crackles. -ABDOMEN: Soft, mild general abdominal tenderness, no rebound tenderness, nondis tended, normoactive bowel sounds. No palpable organomegaly. MUSCULOSKELETAL: No joint swelling or deformity. EXTREMITIES: No cyanosis, clubbing, or pedal edema. NEUROLOGICAL: Gross neurological examination did not reveal any focal deficits. SKIN: No rashes. - Labs CBC & Chem 7: 11/27/18 09:08 11/27/18 09:08 Labs: Abnormal Lab Results - Last 24 Hours (Table) 11/27/18 11/27/18 Range/Units 09:08 09:08 RBC 3.63 L (3.80-5.40) m/uL Hgb 11.1 L (11.4-16.0) gm/dL Plt Count 519 H (150-450) k/uL Sodium 136 L (137-145) mmol/L Glucose 65 L (74-99) mg/dL C-Reactive Protein 130.3 H (<10.0) mg/L Assessment and Plan Assessment: Ulcerative colitis flares up Altered mental status, mostly metabolic encephalopathy secondary to above. i mproving fractures of the second and third metacarpal necks, nondisplaced History of ulcerative colitis History of ischemic bowel disease History of hemorrhoids Chronic back pain History of Raynaud's phenomenon bilaterally History of osteoporosis Hypothyroidism Plan: This is a pleasant 6 years old female who presents with acute ulcerative colitis flares up and metabolic encephalopathy. Also she had fracture of her left hand. We'll continue with both solids side, continue with IV fluids. Pain management. GI consult is appreciated. Call orthopedic consult for hand fracture. Patient does not seem in much distress now for pain. There were lower some of her medication affecting her alertness. Stop Xanax and Ativan 1 mg at bedtime . Discontinue ibuprofen. Continue with sitter at bedside for safety.Labs and medication were reviewed.. Continue same treatment. Continue with symptomatic treatment. Resume home medication. Monitor lytes and vitals. DVT and GI prophylaxis. Further recommendations of the clinical course of the patient DVT prophylaxis: Subcutaneous Lovenox GI Prophylaxis: Pepcid PT/OT: Pending Prognosis is guarded
[2018-11-28] MEDS: CITALOPRAM HYDROBROMIDE 10 MG TAB PO SCH (08:53)
[2018-11-28] MEDS: BALSALAZIDE DISODIUM 750 MG CAPSULE PO SCH ×3 (08:53→20:27)
[2018-11-28] MEDS: VERAPAMIL SR 240 MG TABLET.ER PO SCH (08:54)
[2018-11-28] MEDS: ENOXAPARIN 40 MG/0.4 ML SYRINGE SQ SCH (08:54)
[2018-11-28] MEDS: FAMOTIDINE 20 MG TAB PO SCH ×2 (08:54→20:27)
[2018-11-28] MEDS: methylPREDNISolone SOD SUCCI 40 MG/ML 1 ML VIAL IV SCH (08:54)
[2018-11-28 09:14] LABS: Basophils % (A) 0 %; Eosinophils # (A) 0.1 k/uL (0-0.7); Eosinophils % (A) 1 %; HCT 33.6 % (34.0-46.0); Hypochromasia Slight; Lymphocytes # (A) 1.1 k/uL (1.0-4.8); Lymphocytes % (A) 16 %; MCH 28.2 pg (25.0-35.0); MCHC 29.9 g/dL (31.0-37.0); MCV 94.3 fL (80.0-100.0); Mean Platelet Volume 7.3; Monocytes # (A) 0.1 k/uL (0-1.0); Monocytes % (A) 2 %; Neutrophils # (A) 5.6 k/uL (1.3-7.7); Neutrophils % (A) 81 %; Platelet Count 602 k/uL (150-450); RBC 3.56 m/uL (3.80-5.40); RDW 14.3 % (11.5-15.5); WBC 6.9 k/uL (3.8-10.6)
[2018-11-28 09:28] LABS: Anion Gap 10 mmol/L; Blood Urea Nitrogen 11 mg/dL (7-17); C Reactive Protein 68.9 mg/L (<10.0); Calcium 8.4 mg/dL (8.4-10.2); Carbon Dioxide 27 mmol/L (22-30); Chloride 101 mmol/L (98-107); Glucose 138 mg/dL (74-99); Potassium 3.1 mmol/L (3.5-5.1); Sodium 138 mmol/L (137-145)
--- NOTE | 2018-11-28 09:38 | P.CNOR ---
History of Present Illness - [facility] Consult date: 11/27/18 Requesting physician: Kiel Young Consult reason: fracture History of present illness: Patient states she fell as an inpatient yesterday and injured left hand. She is unsure of how she fell or how her hand was injured. She has pain in the left hand as well as swelling and bruising. She denies numbness or tingling. She has no wrist, elbow or shoulder pain. She has no other complaints. Review of Systems All systems: negative Constitutional: Denies chills, Denies fever Eyes: denies blurred vision, denies pain Ears, nose, mouth and throat: Denies headache, Denies sore throat Cardiovascular: Denies chest pain, Denies shortness of breath Respiratory: Denies cough Gastrointestinal: Denies abdominal pain, Denies diarrhea, Denies nausea, Denies vomiting Genitourinary: Denies dysuria, Denies hematuria Musculoskeletal: Denies myalgias Integumentary: Denies pruritus, Denies rash Neurological: Denies numbness, Denies weakness Psychiatric: Denies anxiety, Denies depression Endocrine: Denies fatigue, Denies weight change Past Medical History Past Medical History: Asthma, GERD/Reflux, Hyperlipidemia, Hypertension, Osteoarthritis (OA), Thyroid Disorder Additional Past Medical History / Comment(s): Ventricular arrhythmia, ulcerative colitis, IBS, diverticular disease, ischemic bowel treated with antibiotics, hemorrhoids, scoliosis, back pain, Raynaulds bilaterally, osteoporosis, hypothyroid, statins-elevated LFT, sinus problems. History of Any Multi-Drug Resistant Organisms: None Reported Past Surgical History: Appendectomy, Breast Surgery, Cholecystectomy, Hysterectomy, Joint Replacement, Tonsillectomy Additional Past Surgical History / Comment(s): Bilateral total knee arthroplasty, hilda cataracts/lens implants, bilateral breast biopsies-benign, colonoscopies, pain injections. Past Anesthesia/Blood Transfusion Reactions: No Reported Reaction Past Psychological History: Anxiety Additional Psychological History / Comment(s): Pt resides in her own home that is attached to her son's home, [place]. She uses a cane to ambulate. She no longer drives. She has [place]. Smoking Status: Never smoker Past Alcohol Use History: None Reported Past Drug Use History: None Reported - Past Family History Mother Family Medical History: No Reported History Additional Family Medical History / Comment(s): Mother was obese and an alcoholic Father Additional Family Medical History / Comment(s): Father was an alcoholic. Medications and Allergies Home Medications Medication Instructions Recorded Confirmed Type Albuterol Sulfate [Ventolin HFA] 1 - 2 puff INHALATION RT-QID PRN 05/17/14 11/25/18 History Beclomethasone Dipropionate [Qvar 2 puff INHALATION RT-BID 05/17/14 11/25/18 Hi story 80 mcg/puff] LORazepam [Lorazepam] 1 mg PO HS 05/17/14 11/25/18 History Levothyroxine Sodium [Synthroid] 175 mcg PO DAILY 05/17/14 11/25/18 History Mesalamine [Asacol Hd] 1,600 mg PO TID 05/17/14 11/25/18 History Citalopram Hydrobromide [CeleXA] 10 mg PO DAILY 03/22/16 11/25/18 History HYDROcodone/APAP 5-325MG [[place] 1 tab PO Q8H PRN 03/08/17 11/25/18 History 5-325] Ranitidine HCl 150 mg PO BID 03/08/17 11/25/18 History Cholecalciferol (Vitamin D3) 2,000 unit PO DAILY 02/14/18 11/25/18 History [Vitamin D3] Fexofenadine HCl [[place] Allergy] 180 mg PO DAILY 02/14/18 11/25/18 History Verapamil Sr [Isoptin Sr] 240 mg PO DAILY 02/14/18 11/25/18 History Ondansetron HCl [Zofran] 4 - 8 mg PO Q12H PRN 11/25/18 11/25/18 History Allergies Allergy/AdvReac Type Severity Reaction Status Date / Time Sulfa (Sulfonamide Allergy Severe Rash/Hives Verified 11/25/18 12:02 Antibiotics) PRIYA Inhibitors Allergy Unknown Verified 11/25/18 12:02 atorvastatin calcium Allergy Swelling Verified 11/25/18 12:02 [From Lipitor] atropine sulfate Allergy Unknown Verified 11/25/18 12:02 [From Lomotil] Cephalosporins Allergy Unknown Verified 11/25/18 12:02 dicyclomine HCl [From Bentyl] Allergy Nausea Verified 11/25/18 12:02 diphenoxylate HCl Allergy Unknown Verified 11/25/18 12:02 [From Lomotil] propoxyphene napsylate Allergy Unknown Verified 11/25/18 12:02 [From Darvocet-N 100] Turcsab-Xop-Quk Reductase Allergy muscle pain Verified 11/25/18 12:02 Inhibitor acetaminophen AdvReac Unknown Verified 11/25/18 12:02 [From Darvocet-N 100] lopidimine Allergy Unknown Uncoded 02/14/18 10:53 Physical Examination Inspection of the LUE shows an abrasion wound/skin tear at dorsum of hand. It is not deep and does not require repair. There is swelling and bruising as expected at the left hand. No deformity. She is tender at 2nd metacarpal head. She has normal flexion cascade. No pain at the shoulder, elbow or wrist with ROM. NVI with motor and sensation throughout LUE. 2+ radial pulse present and less than 2 sec cap refill in all digits. Results Xrays of left hand show a mild ulnar angulated 2nd metacarpal head fracture. No other fracture dislocation - Labs Labs: Abnormal Lab Results - Last 24 Hours (Table) 11/26/18 11/26/18 11/27/18 Range/Units 15:12 18:52 09:08 RBC (3.80-5.40) m/uL Hgb (11.4-16.0) gm/dL Plt Count (150-450) k/uL ESR 36 H (0-20) mm/hr Sodium 136 L (137-145) mmol/L Potassium 3.1 L (3.5-5.1) mmol/L Glucose 65 L (74-99) mg/dL C-Reactive Protein 130.3 H (<10.0) mg/L 11/27/18 Range/Units 09:08 RBC 3.63 L (3.80-5.40) m/uL Hgb 11.1 L (11.4-16.0) gm/dL Plt Count 519 H (150-450) k/uL ESR (0-20) mm/hr Sodium (137-145) mmol/L Potassium (3.5-5.1) mmol/L Glucose (74-99) mg/dL C-Reactive Protein (<10.0) mg/L H & H 11/25/18 11/27/18 Range/Units 09:45 09:08 Hgb 12.6 11.1 L (11.4-16.0) gm/dL Hct 39.2 34.6 (34.0-46.0) % Coagulation 11/25/18 Range/Units 09:45 INR 1.0 (<1.2) Result Diagrams: 11/28/18 08:36 11/28/18 08:36 Assessment and Plan (1) Hand fracture, left Narrative/Plan: She will be placed in boxer's fracture brace/splint or hand orthosis. I advised to elevate upper extremity. Also recommend daily wound care to abrasion/tear. She should f/U in office in one week for further recommendations. Thank you Current Visit: Yes Status: Acute Priority: Medium Code(s): S62.92XA - UNSP FRACTURE OF LEFT WRIST AND HAND, INIT FOR CLOS FX SNOMED Code(s): 75572731 Time with Patient: Less than 30
--- NOTE | 2018-11-28 09:55 | P.PN ---
Subjective Progress Note Date: 11/28/18 Principal diagnosis: Exacerbation ulcerative colitis Feels well. No BMs this morning. CRP improved. Afebrile. CRP 68. White count 7.7. Hemoglobin 6.9. Confused at times sitter at bedside. Objective - Vital Signs Vital signs: Vital Signs Temp 97.6 F 11/28/18 04:42 Pulse 72 11/28/18 04:42 Resp 18 11/28/18 04:42 BP 161/76 11/28/18 04:42 Pulse Ox 96 11/28/18 04:42 Intake & Output 11/27/18 11/28/18 11/28/18 18:59 06:59 18:59 Intake Total 290 900 Output Total 2 Balance 288 900 Intake: Intake, IV Titration 900 Amount Lactated Ringers 1,000 ml 900 @ 75 mls/hr IV .[id number] [facility] Rx#:[id number] Oral 290 Output: Urine 2 Other: Voiding Method Bedside Commode Bedside Commode Diaper Diaper Incontinent # Voids 1 # Bowel Movements 1 - Exam General appearance: The patient is alert, oriented, in no acute distress. HET: Head is normocephalic and atraumatic. Pupils are equal and reactive. Oropharynx is clear without lesions. Neck: Supple without lymphadenopathy. Trachea midline. Heart: S1 S2. Regular rate and rhythm. Lungs: No crackles or wheezes are heard. Abdomen: Soft, very mild tenderness to the left lower quadrant, nondistended with bowel sounds. No peritoneal signs. No palpable organomegaly or masses. Extremities: Left hand wrapped with visible bruising mild edema. Normal skin color and turgor. Radial and pedal pulses are 2/4 bilaterally. Neurological: No focal deficits. Strength and sensation are grossly intact. - Labs CBC & Chem 7: 11/28/18 08:36 11/28/18 08:36 Labs: Abnormal Lab Results - Last 24 Hours (Table) 11/27/18 11/27/18 11/28/18 Range/Units 09:08 09:08 08:36 RBC 3.63 L (3.80-5.40) m/uL Hgb 11.1 L (11.4-16.0) gm/dL Hct (34.0-46.0) % MCHC (31.0-37.0) g/dL Plt Count 519 H (150-450) k/uL Sodium 136 L (137-145) mmol/L Potassium 3.1 L (3.5-5.1) mmol/L Glucose 65 L 138 H (74-99) mg/dL C-Reactive Protein 130.3 H 68.9 H (<10.0) mg/L 11/28/18 Range/Units 08:36 RBC 3.56 L (3.80-5.40) m/uL Hgb 10.0 L (11.4-16.0) gm/dL Hct 33.6 L (34.0-46.0) % MCHC 29.9 L (31.0-37.0) g/dL Plt Count 602 H (150-450) k/uL Sodium (137-145) mmol/L Potassium (3.5-5.1) mmol/L Glucose (74-99) mg/dL C-Reactive Protein (<10.0) mg/L Assessment and Plan (1) Exacerbation of ulcerative colitis Narrative/Plan: 78 -year-old female presents with acute left-sided abdominal pain nonbloody diarrhea with previous history of constipation over the last few weeks. Computed tomography scan reports left-sided colonic thickening. Current Visit: Yes Status: Acute Code(s): K51.90 - ULCERATIVE COLITIS, UNSPECIFIED, WITHOUT COMPLICATIONS SNOMED Code(s): 375983576 (2) Status post fall Current Visit: Yes Status: Acute Code(s): Z91.81 - HISTORY OF FALLING SNOMED Code(s): 088477935 (3) Elevated C-reactive protein (CRP) Narrative/Plan: improved Current Visit: Yes Status: Acute Code(s): R79.82 - ELEVATED C-REACTIVE PROTEIN (CRP) SNOMED Code(s): 181224034695963 Plan: 1. Continue with present medical therapy. Continue Balsalazide. IV Solu-Medrol 40 mg daily. CRP in a.m. CEA WNL. Inpatient colonoscopy possible Sunday morning with Dr. Powers. Low residue diet. We'll continue to follow. Assessment and plan a care discussed with Dr. Das
[2018-11-28] MEDS: POTASSIUM CHLORIDE ER 20 MEQ TAB.ER PO SCH ×2 (16:59→18:07)
[2018-11-28] MEDS: LACTATED RINGERS 1,000 ML IV SCH (17:00)
[2018-11-28] MEDS: ALPRAZolam 0.25 MG TAB PO PRN (21:56)
[2018-11-29] MEDS: HYDROcodone/APAP 5-325MG 1 EACH TAB PO PRN ×2 (04:22→16:49)
[2018-11-29] MEDS: LACTATED RINGERS 1,000 ML IV SCH ×2 (04:34→13:23)
[2018-11-29] MEDS: LEVOTHYROXINE 112 MCG TAB PO SCH (05:56)
[2018-11-29 07:26] LABS: Basophils % (A) 0 %; Eosinophils % (A) 0 %; HCT 26.1 % (34.0-46.0); Hypochromasia Slight; Lymphocytes # (A) 1.5 k/uL (1.0-4.8); Lymphocytes % (A) 15 %; MCH 29.9 pg (25.0-35.0); MCHC 31.6 g/dL (31.0-37.0); MCV 94.6 fL (80.0-100.0); Mean Platelet Volume 6.7; Monocytes # (A) 0.6 k/uL (0-1.0); Monocytes % (A) 6 %; Neutrophils # (A) 7.6 k/uL (1.3-7.7); Neutrophils % (A) 78 %; Platelet Count 523 k/uL (150-450); RBC 2.76 m/uL (3.80-5.40); RDW 14.2 % (11.5-15.5); WBC 9.7 k/uL (3.8-10.6)
[2018-11-29 07:33] LABS: HGB 8.3 gm/dL (11.4-16.0)
[2018-11-29] MEDS: FLUTICASONE 110 MCG INHALER INHALATION SCH (07:33)
[2018-11-29 07:49] LABS: Anion Gap 5 mmol/L; Blood Urea Nitrogen 17 mg/dL (7-17); Calcium 8.1 mg/dL (8.4-10.2); Carbon Dioxide 28 mmol/L (22-30); Chloride 103 mmol/L (98-107); Glucose 90 mg/dL (74-99); Potassium 3.4 mmol/L (3.5-5.1); Sodium 136 mmol/L (137-145)
[2018-11-29] MEDS: ENOXAPARIN 40 MG/0.4 ML SYRINGE SQ SCH (08:54)
[2018-11-29] MEDS: CITALOPRAM HYDROBROMIDE 10 MG TAB PO SCH (08:54)
[2018-11-29] MEDS: FAMOTIDINE 20 MG TAB PO SCH (08:54)
[2018-11-29] MEDS: BALSALAZIDE DISODIUM 750 MG CAPSULE PO SCH ×2 (08:55→17:12)
[2018-11-29] MEDS: POTASSIUM CHLORIDE ER 20 MEQ TAB.ER PO SCH ×2 (08:55→12:40)
[2018-11-29] MEDS: VERAPAMIL SR 240 MG TABLET.ER PO SCH (08:55)
[2018-11-29] MEDS ORDERED: LEVOFLOXACIN 250 MG TAB PO SCH (09:00)
[2018-11-29] MEDS ORDERED: BACITRACIN 500 UNIT/GM OINT 28.4 GM TUBE TOPICAL SCH (09:00)
[2018-11-29] MEDS ORDERED: methylPREDNISolone SOD SUCCI 40 MG/ML 1 ML VIAL IV SCH (09:00)
[2018-11-29 11:33] VITALS: BP 122/70; PULSE 60; RESP 18; TEMP 97.4
--- NOTE | 2018-11-29 12:19 | P.PN ---
Subjective Progress Note Date: 11/29/18 Principal diagnosis: Exacerbation ulcerative colitis Feels well. No bowel movements. Denies abdominal pain. Afebrile. CRP improving 38 previously 68.9. White count 9.7. Hemoglobin 8.3. Objective - Vital Signs Vital signs: Vital Signs Temp 97.4 F L 11/29/18 11:32 Pulse 60 11/29/18 11:32 Resp 18 11/29/18 11:32 BP 122/70 11/29/18 11:32 Pulse Ox 100 11/29/18 11:32 Intake & Output 11/28/18 11/29/18 11/29/18 18:59 06:59 18:59 Intake Total 1490 Output Total 1 1 Balance 1489 -1 Weight 73.936 kg Intake: Intake, IV Titration 600 Amount Lactated Ringers 1,000 ml 600 @ 50 mls/hr IV .Q20H [facility] Rx#:[id number] Oral 890 Output: Urine 1 1 Other: Voiding Method Bedside Commode Bedside Commode Bedside Commode Diaper Diaper Diaper Incontinent Incontinent Incontinent # Voids 3 # Bowel Movements 1 - Exam General appearance: The patient is alert, oriented, in no acute distress. HET: Head is normocephalic and atraumatic. Pupils are equal and reactive. Oropharynx is clear without lesions. Neck: Supple without lymphadenopathy. Trachea midline. Heart: S1 S2. Regular rate and rhythm. Lungs: No crackles or wheezes are heard. Abdomen: Soft, mild tenderness to the left lower quadrant, nondistended with bowel sounds. No peritoneal signs. No palpable organomegaly or masses. Extremities: Left hand wrapped with visible bruising mild edema. Normal skin color and turgor. Radial and pedal pulses are 2/4 bilaterally. Neurological: No focal deficits. Strength and sensation are grossly intact. - Labs CBC & Chem 7: 11/29/18 06:52 11/29/18 06:52 Labs: Abnormal Lab Results - Last 24 Hours (Table) 11/29/18 11/29/18 Range/Units 06:52 06:52 RBC 2.76 L (3.80-5.40) m/uL Hgb 8.3 L D (11.4-16.0) gm/dL Hct 26.1 L (34.0-46.0) % Plt Count 523 H (150-450) k/uL Sodium 136 L (137-145) mmol/L Potassium 3.4 L (3.5-5.1) mmol/L Calcium 8.1 L (8.4-10.2) mg/dL C-Reactive Protein 38.0 H (<10.0) mg/L Microbiology - Last 24 Hours (Table) 11/25/18 11:00 Stool Culture - Final Stool Assessment and Plan (1) Exacerbation of ulcerative colitis Narrative/Plan: 78 -year-old female presents with acute left-sided abdominal pain nonbloody diarrhea with previous history of constipation over the last few weeks. Computed tomography scan reports left-sided colonic thickening. Current Visit: Yes Status: Acute Code(s): K51.90 - ULCERATIVE COLITIS, UNSPECIFIED, WITHOUT COMPLICATIONS SNOMED Code(s): 935348705 (2) Status post fall Narrative/Plan: Left hand fracture nonsurgical Current Visit: Yes Status: Acute Code(s): Z91.81 - HISTORY OF FALLING SNOMED Code(s): 945420527 (3) Elevated C-reactive protein (CRP) Narrative/Plan: improved Current Visit: Yes Status: Acute Code(s): R79.82 - ELEVATED C-REACTIVE PROTEIN (CRP) SNOMED Code(s): 040143705700350 Plan: 1. Continue with present medical therapy. Agreeable for discharge. Outpatient colonoscopy rescheduled for December [address] Powers. Discharge medications balsalazide 750 mg 3 tablets 3 times a day and prednisone 40 mg daily 7 days, 35 mg daily 7 days 30 mg daily 7 days 25 mg daily 7 days, 20 mg daily 7 days 15 mg daily 7 days, 10 mg daily 7 days. Soft GI diet as tolerated. Assessment and plan a care discussed with Dr. Powers
--- NOTE | 2018-11-29 15:36 | P.DS ---
Providers Date of admission: 11/25/18 23:07 Attending physician: Justice Camp Consults: 11/25/18 13:03 Consult Physician Stat Consulting Provider: Maggi Powers Consult Reason/Comments: Colitis Do you want consulting provider notified?: Yes 11/26/18 19:39 Consult Physician Routine Consulting Provider: Kiel Young Consult Reason/Comments: Recent fall Do you want consulting provider notified?: Yes, Notify in am Primary care physician: Bong Daly [facility] Course: Diagnoses: Ulcerative colitis flares up, resolving Altered mental status, mostly metabolic encephalopathy secondary to above. improving fractures of the second and third metacarpal necks, nondisplaced . Superficial Left hand wound, and the dorsum of the hand, clean. History of ulcerative colitis History of ischemic bowel disease History of hemorrhoids Chronic back pain History of Raynaud's phenomenon bilaterally History of osteoporosis Hypothyroidism Hospital course: This is a pleasant 78 years old female with past medical history of ulcerative colitis, ischemic bowel disease, treated with antibiotics, hemorrhoids, chronic back pain, Raynaud's bilaterally, osteoporosis, hypothyroidism. Patient's presents with bloody diarrhea and nausea vomiting and abdominal pain. Patient has been evaluated by GI team and she was started on balsalazide, steroid is been added later on. fluid is provided for hydration. Patient mental status has improved. On the day of discharge patient has no abdominal pain, as it is 0/10 in severity. No nausea vomiting. She is tolerating diet well. She has normal bowel movements. Also no chest pain or dyspnea. Patient has been cleared by GI team for discharge on balsalazide and prednisone taper. She needs to follow up with GI office on December [address] Powers. Patient also had a fall, with nondisplaced fracture of the second and third metacarpal necks of the left hand. Orthopedic team evaluated the patient and they recommended boxers sling, wound care and elevation of the left arm problems and managment plan was discussed with the pt and she verbalized understanding and acceptance pt is found stable and can be discharged to [facility] for rehab in guarded prognosis , however she needs f/u as outpt . she needs to see orthopedic office in one week ( appoitment is made for her ) also she has appointment on 12/11/18 for colonoscopy at [facility] with Maggi Lima Gen: patient is a AAOx3, no distress CVS: S1-S2, RRR, no murmur Lungs: B/L CTA, no wheezing Abdomen: soft, no distention, no tenderness, positive bowel sounds Extremity: no leg edema or induration. Left hand wound on the dorsum of the hand, superficial, about "1 inch X2 inches"with no surrounding cellulitis, minimal. Discharge. Time spent more than 35 minutes Patient Condition at Discharge: Stable Plan - Discharge Summary Discharge Rx Participant: No New Discharge Prescriptions: New Bacitracin Oint 1 applic TOPICAL BID applic Clindamycin [Cleocin] 150 mg PO Q12H 5 Days #10 capsule Balsalazide Disodium [Colazal] 2,250 mg PO TID #270 cap Melatonin 3 mg PO HS PRN tablet PRN Reason: Insomnia predniSONE 10 mg PO DIRECTED #130 tab Acetaminophen Tab [Tylenol] 650 mg PO Q6HR PRN tab PRN Reason: Mild Pain Or Fever > 100.5 Heparin Sodium,Porcine [Heparin Sodium] 5,000 unit IJ BID #1 vial Continue Levothyroxine Sodium [Synthroid] 175 mcg PO DAILY LORazepam [Lorazepam] 1 mg PO HS Beclomethasone Dipropionate [Qvar 80 mcg/puff] 2 puff INHALATION RT-BID Albuterol Sulfate [Ventolin HFA] 1 - 2 puff INHALATION RT-QID PRN PRN Reason: Shortness Of Breath Citalopram Hydrobromide [CeleXA] 10 mg PO DAILY Ranitidine HCl 150 mg PO BID Verapamil Sr [Isoptin Sr] 240 mg PO DAILY Fexofenadine HCl [Kimber Allergy] 180 mg PO DAILY Cholecalciferol (Vitamin D3) [Vitamin D3] 2,000 unit PO DAILY Ondansetron HCl [Zofran] 4 - 8 mg PO Q12H PRN PRN Reason: Nausea HYDROcodone/APAP 5-325MG [Palmer 5-325] 1 tab PO Q8H PRN #6 tab PRN Reason: Pain Discontinued Mesalamine [Asacol Hd] 1,600 mg PO TID Discharge Medication List Albuterol Sulfate [Ventolin HFA] 1 - 2 puff INHALATION RT-QID PRN 05/17/14 [History] Beclomethasone Dipropionate [Qvar 80 mcg/puff] 2 puff INHALATION RT-BID 05/17/14 [History] LORazepam [Lorazepam] 1 mg PO HS 05/17/14 [History] Levothyroxine Sodium [Synthroid] 175 mcg PO DAILY 05/17/14 [History] Citalopram Hydrobromide [CeleXA] 10 mg PO DAILY 03/22/16 [History] Ranitidine HCl 150 mg PO BID 03/08/17 [History] Cholecalciferol (Vitamin D3) [Vitamin D3] 2,000 unit PO DAILY 02/14/18 [History] Fexofenadine HCl [Kimber Allergy] 180 mg PO DAILY 02/14/18 [History] Verapamil Sr [Isoptin Sr] 240 mg PO DAILY 02/14/18 [History] Ondansetron HCl [Zofran] 4 - 8 mg PO Q12H PRN 11/25/18 [History] Acetaminophen Tab [Tylenol] 650 mg PO Q6HR PRN tab 11/29/18 [Rx] Bacitracin Oint 1 applic TOPICAL BID applic 11/29/18 [Rx] Balsalazide Disodium [Colazal] 2,250 mg PO TID #270 cap 11/29/18 [Rx] Clindamycin [Cleocin] 150 mg PO Q12H 5 Days #10 capsule 11/29/18 [Rx] HYDROcodone/APAP 5-325MG [Palmer 5-325] 1 tab PO Q8H PRN #6 tab 11/29/18 [Rx] Heparin Sodium,Porcine [Heparin Sodium] 5,000 unit IJ BID #1 vial 11/29/18 [Rx] Melatonin 3 mg PO HS PRN tablet 11/29/18 [Rx] predniSONE 10 mg PO DIRECTED #130 tab 11/29/18 [Rx] Follow up Appointment(s)/Referral(s): Jason Obrien DO [Medical Doctor] - 1 Week Bong Daly DO [Primary Care Provider] - 1-2 days Kiel Young MD [STAFF PHYSICIAN] - 12/06/18 3:30 pm Maggi Powers MD [STAFF PHYSICIAN] - 12/11/18 (at [facility] for procedure , colonoscopy ) Patient Instructions/Handouts: Acute Nausea and Vomiting (ED) Activity/Diet/Wound Care/Special Instructions: wound care maintain boxer's fracture brace/hand orthosis/splint elevate left upper extremity F/U with Dr. Obrien in office Outpatient colonoscopy and [facility] with Dr. Powers on 12/11/2018. Presurgical screening we'll notify patient with additional instructions and arrival time. Prednisone taper instructions for discharge; starting 11/30/2018 prednisone 40 mg daily 7 days, 35 mg daily 7 days, 30 mg daily 7 days, 25 mg daily 7 days, 20 mg daily 7 days, 15 mg daily 7 days, 10 mg daily 7 days. Diet: soft GI diet and advance as tolerated activity: is limited till you see your doctor Care Plan Goals (MU): cardiac diet Discharge Disposition: TRANSFER TO SNF/ECF
[2018-11-30] MEDS ORDERED: predniSONE 20 MG TAB PO SCH (09:00)
== END 2018-11-29 17:45 | DRG 385 ==
LOC: EC 08:30 → 1SOBS 13:04 → OBSVTOIN 23:07 → 3NMEDONC 11-26 21:31
PROVIDERS: ADMIT Hospitalist; ATTEND Hospitalist
DX: K51.80 Other ulcerative colitis without complications (principal); G93.41 Metabolic encephalopathy; E86.0 Dehydration; M41.9 Scoliosis, unspecified; J45.40 Moderate persistent asthma, uncomplicated; I10 Essential (primary) hypertension; M81.0 Age-related osteoporosis without current pathological fracture; F41.9 Anxiety disorder, unspecified; E87.6 Hypokalemia; K56.41 Fecal impaction; K64.9 Unspecified hemorrhoids; K57.30 Diverticulosis of large intestine without perforation or abscess without bleeding; K21.9 Gastro-esophageal reflux disease without esophagitis; G89.29 Other chronic pain; E78.5 Hyperlipidemia, unspecified; E03.9 Hypothyroidism, unspecified; M54.9 Dorsalgia, unspecified; M19.91 Primary osteoarthritis, unspecified site; R79.82 Elevated C-reactive protein (CRP); I73.00 Raynaud's syndrome without gangrene; S62.361A Nondisplaced fracture of neck of second metacarpal bone, left hand, initial encounter for closed fracture; S62.363A Nondisplaced fracture of neck of third metacarpal bone, left hand, initial encounter for closed fracture; W19.XXXA Unspecified fall, initial encounter; Y93.9 Activity, unspecified; Y92.230 Patient room in hospital as the place of occurrence of the external cause; Z79.899 Other long term (current) drug therapy; Z79.890 Hormone replacement therapy; Z98.42 Cataract extraction status, left eye; Z98.41 Cataract extraction status, right eye; Z90.710 Acquired absence of both cervix and uterus; Z91.81 History of falling; Z96.653 Presence of artificial knee joint, bilateral; Z90.49 Acquired absence of other specified parts of digestive tract; Z96.1 Presence of intraocular lens; Z88.6 Allergy status to analgesic agent; Z88.1 Allergy status to other antibiotic agents; Z88.2 Allergy status to sulfonamides; Z88.8 Allergy status to other drugs, medicaments and biological substances; Z81.1 Family history of alcohol abuse and dependence
CPT/HCPCS: 36415; 70450; 74018; 74177; 80048; 80053; 81001; 82150; 82272; 82378; 83690; 83735; 84132; 84439; 84443; 85025; 85610; 85652; 85730; 86140; 87045; 87046; 87324; 94640; 96361; 96374; 96375; 99285

== ENCOUNTER 2018-12-03 15:00 | Inpatient (IN) | payer MEDICARE ==
[2018-12-03] MEDS ORDERED: SODIUM CHLORIDE 0.9% 500 ML 500 ML IV STA (15:38)
--- NOTE | 2018-12-03 15:48 | ED ---
General Adult HPI - General Chief complaint: GI Bleed Stated complaint: Rectal Bleeding Time Seen by Provider: 12/03/18 15:00 Source: patient, RN notes reviewed Mode of arrival: EMS Limitations: no limitations - History of Present Illness Initial comments: This is an 78-year-old female presents emergency Department with a past medical history of ulcerative colitis. Patient states she was sent in today because she had some GI bleeding. Patient states she has abdominal pain but she believes that's her typical also colitis pain. Patient states she was recently in the hospital she doesn't remember exactly when she went home. Patient denies any fever chills. Patient denies any nausea vomiting. Patient denies any chest pain difficulty breathing first breath. Patient denies any lightheadedness or dizziness. Patient is an extremely poor historian. Patient has no one with her from the halfway or family. - Related Data Home Medications Medication Instructions Recorded Confirmed Albuterol Sulfate [Ventolin HFA] 1 - 2 puff INHALATION RT-QID PRN 05/17/14 12/03/18 Beclomethasone Dipropionate [Qvar 2 puff INHALATION RT-BID 05/17/14 12/03/18 80 mcg/puff] LORazepam [Lorazepam] 1 mg PO HS 05/17/14 12/03/18 Levothyroxine Sodium [Synthroid] 175 mcg PO DAILY 05/17/14 12/03/18 Citalopram Hydrobromide [CeleXA] 10 mg PO DAILY 03/22/16 12/03/18 Ranitidine HCl 150 mg PO BID 03/08/17 12/03/18 Cholecalciferol (Vitamin D3) 2,000 unit PO DAILY 02/14/18 12/03/18 [Vitamin D3] Fexofenadine HCl [Kimber Allergy] 180 mg PO DAILY 02/14/18 12/03/18 Verapamil Sr [Isoptin Sr] 240 mg PO DAILY 02/14/18 12/03/18 Ondansetron HCl [Zofran] 4 - 8 mg PO Q12H PRN 11/25/18 12/03/18 Bacitracin Oint 1 applic TOPICAL BID 12/03/18 12/03/18 Bisacodyl [Dulcolax] 10 mg RECTAL DAILY PRN 12/03/18 12/03/18 Heparin Sodium,Porcine [Heparin 5,000 unit SQ BID 12/03/18 12/03/18 Sodium] Magnesium Hydroxide [Milk of 7,200 mg PO DAILY PRN 12/03/18 12/03/18 Magnesia Concentrate] Na Phos,M-B/Na Phos,Di-Ba [Fleet 133 ml RECTAL ONCE PRN 12/03/18 12/03/18 Adult] Potassium Chloride ER [K-Dur 10] 10 meq PO DAILY 12/03/18 12/03/18 predniSONE See Taper PO DIRECTED 12/03/18 12/03/18 Previous Rx's Medication Instructions Recorded Acetaminophen Tab [Tylenol] 650 mg PO Q6HR PRN tab 11/29/18 Balsalazide Disodium [Colazal] 2,250 mg PO TID #270 cap 11/29/18 Clindamycin [Cleocin] 150 mg PO Q12H 5 Days #10 capsule 11/29/18 HYDROcodone/APAP 5-325MG [West 1 tab PO Q8H PRN #6 tab 11/29/18 5-325] Melatonin 3 mg PO HS PRN tablet 11/29/18 Allergies Allergy/AdvReac Type Severity Reaction Status Date / Time Sulfa (Sulfonamide Allergy Severe Rash/Hives Verified 12/03/18 15:14 Antibiotics) PRIYA Inhibitors Allergy Unknown Verified 12/03/18 15:14 atorvastatin calcium Allergy Swelling Verified 12/03/18 15:14 [From Lipitor] atropine sulfate Allergy Unknown Verified 12/03/18 15:14 [From Lomotil] Cephalosporins Allergy Unknown Verified 12/03/18 15:14 dicyclomine HCl [From Bentyl] Allergy Nausea Verified 12/03/18 15:14 diphenoxylate HCl Allergy Unknown Verified 12/03/18 15:14 [From Lomotil] propoxyphene napsylate Allergy Unknown Verified 12/03/18 15:14 [From Darvocet-N 100] Quyknsp-Tzs-Exr Reductase Allergy muscle pain Verified 12/03/18 15:14 Inhibitor acetaminophen AdvReac Unknown Verified 12/03/18 15:14 [From Darvocet-N 100] lopidimine Allergy Unknown Uncoded 02/14/18 10:53 Review of Systems ROS Statement: Those systems with pertinent positive or pertinent negative responses have been documented in the HPI. ROS Other: All systems not noted in ROS Statement are negative. Past Medical History Past Medical History: Asthma, GERD/Reflux, Hyperlipidemia, Hypertension, Osteoarthritis (OA), Thyroid Disorder Additional Past Medical History / Comment(s): Ventricular arrhythmia, ulcerative colitis, IBS, diverticular disease, ischemic bowel treated with antibiotics, hemorrhoids, scoliosis, back pain, Raynaulds bilaterally, osteoporosis, hypothyroid, statins-elevated LFT, sinus problems. History of Any Multi-Drug Resistant Organisms: None Reported Past Surgical History: Appendectomy, Breast Surgery, Cholecystectomy, Hysterectomy, Joint Replacement, Tonsillectomy Additional Past Surgical History / Comment(s): Bilateral total knee arthroplasty, hilda cataracts/lens implants, bilateral breast biopsies-benign, colonoscopies, pain injections. Past Anesthesia/Blood Transfusion Reactions: No Reported Reaction Past Psychological History: Anxiety Smoking Status: Never smoker Past Alcohol Use History: None Reported Past Drug Use History: None Reported - Past Family History Mother Family Medical History: No Reported History Additional Family Medical History / Comment(s): Mother was obese and an alcoholic Father Additional Family Medical History / Comment(s): Father was an alcoholic. General Exam - General Exam Comments Initial Comments: GENERAL: Patient is well-developed and well-nourished. Patient is nontoxic and well- hydrated and is in mild distress. ENT: Neck is soft and supple. No significant lymphadenopathy is noted. Oropharynx is clear. Moist mucous membranes. Neck has full range of motion without eliciting any pain. EYES: The sclera were anicteric and conjunctiva were pink and moist. Extraocular movements were intact and pupils were equal round and reactive to light. Eyelids were unremarkable. PULMONARY: Unlabored respirations. Good breath sounds bilaterally. No audible rales rhonchi or wheezing was noted. CARDIOVASCULAR: There is a regular rate and rhythm without any murmurs gallops or rubs. ABDOMEN: Soft and nontender with normal bowel sounds. No palpable organomegaly was noted. There is no palpable pulsatile mass. SKIN: Skin is clear with no lesions or rashes and otherwise unremarkable. NEUROLOGIC: Patient is alert and oriented x3. Cranial nerves II through XII are grossly intact. Motor and sensory are also intact. Normal speech, volume and content. Symmetrical smile. MUSCULOSKELETAL: Normal extremities with adequate strength and full range of motion. LYMPHATICS: No significant lymphadenopathy is noted PSYCHIATRIC: Normal psychiatric evaluation. Limitations: no limitations Course Vital Signs 12/03/18 15:04 Temperature 97.8 F Pulse Rate 65 Respiratory 18 Rate Blood Pressure 111/54 O2 Sat by Pulse 100 Oximetry Medical Decision Making - Medical Decision Making Patient's hemoglobin appears to be stable but because of the continued bleeding I spoke with Dr. Price agreed to admit the patient admitted the patient I did serial CBCs and consult with GI. - Lab Data Result diagrams: 12/03/18 15:25 12/03/18 15:25 Lab Results 12/03/18 12/03/18 12/03/18 Range/Units 15:25 15:25 15:25 WBC 13.6 H (3.8-10.6) k/uL RBC 4.13 (3.80-5.40) m/uL Hgb 12.0 (11.4-16.0) gm/dL Hct 39.1 (34.0-46.0) % MCV 94.6 (80.0-100.0) fL MCH 29.0 (25.0-35.0) pg MCHC 30.6 L (31.0-37.0) g/dL RDW 14.9 (11.5-15.5) % Plt Count 600 H (150-450) k/uL Neutrophils % 90 % Lymphocytes % 7 % Monocytes % 2 % Eosinophils % 1 % Basophils % 0 % Neutrophils # 12.3 H (1.3-7.7) k/uL Lymphocytes # 1.0 (1.0-4.8) k/uL Monocytes # 0.3 (0-1.0) k/uL Eosinophils # 0.1 (0-0.7) k/uL Basophils # 0.0 (0-0.2) k/uL Hypochromasia Slight PT 11.0 (9.0-12.0) sec INR 1.0 (<1.2) APTT 18.4 L (22.0-30.0) sec Sodium 135 L (137-145) mmol/L Potassium 3.0 L (3.5-5.1) mmol/L Chloride 94 L (98-107) mmol/L Carbon Dioxide 29 (22-30) mmol/L Anion Gap 12 mmol/L BUN 15 (7-17) mg/dL Creatinine 0.87 (0.52-1.04) mg/dL Est GFR (CKD-EPI)AfAm 73 (>60 ml/min/1.73 sqM) Est GFR (CKD-EPI)NonAf 63 (>60 ml/min/1.73 sqM) Glucose 122 H (74-99) mg/dL Calcium 9.3 (8.4-10.2) mg/dL Magnesium 1.9 (1.6-2.3) mg/dL Total Bilirubin 0.4 (0.2-1.3) mg/dL AST 40 H (14-36) U/L ALT 32 (9-52) U/L Alkaline Phosphatase 92 (38-126) U/L Troponin I (0.000-0.034) ng/mL Total Protein 6.4 (6.3-8.2) g/dL Albumin 3.4 L (3.5-5.0) g/dL Blood Type Blood Type Confirm Blood Type Recheck Antibody Screen Spec Expiration Date 12/03/18 12/03/18 12/03/18 Range/Units 15:25 15:25 16:54 WBC (3.8-10.6) k/uL RBC (3.80-5.40) m/uL Hgb (11.4-16.0) gm/dL Hct (34.0-46.0) % MCV (80.0-100.0) fL MCH (25.0-35.0) pg MCHC (31.0-37.0) g/dL RDW (11.5-15.5) % Plt Count (150-450) k/uL Neutrophils % % Lymphocytes % % Monocytes % % Eosinophils % % Basophils % % Neutrophils # (1.3-7.7) k/uL Lymphocytes # (1.0-4.8) k/uL Monocytes # (0-1.0) k/uL Eosinophils # (0-0.7) k/uL Basophils # (0-0.2) k/uL Hypochromasia PT (9.0-12.0) sec INR (<1.2) APTT (22.0-30.0) sec Sodium (137-145) mmol/L Potassium (3.5-5.1) mmol/L Chloride (98-107) mmol/L Carbon Dioxide (22-30) mmol/L Anion Gap mmol/L BUN (7-17) mg/dL Creatinine (0.52-1.04) mg/dL Est GFR (CKD-EPI)AfAm (>60 ml/min/1.73 sqM) Est GFR (CKD-EPI)NonAf (>60 ml/min/1.73 sqM) Glucose (74-99) mg/dL Calcium (8.4-10.2) mg/dL Magnesium (1.6-2.3) mg/dL Total Bilirubin (0.2-1.3) mg/dL AST (14-36) U/L ALT (9-52) U/L Alkaline Phosphatase (38-126) U/L Troponin I <0.012 (0.000-0.034) ng/mL Total Protein (6.3-8.2) g/dL Albumin (3.5-5.0) g/dL Blood Type A Positive Blood Type Confirm A Positive Blood Type Recheck CABO Indicated Antibody Screen NEGATIVE Spec Expiration Date 12/06/2018 - 2324 Disposition Clinical Impression: GI bleed Disposition: ADMITTED IP TO THIS [facility] Referrals: Tawanda Nguyen MD [Primary Care Provider] - 1-2 days Time of Disposition: 18:17
[2018-12-03 16:20] LABS: Basophils % (A) 0 %; Eosinophils # (A) 0.1 k/uL (0-0.7); Eosinophils % (A) 1 %; HCT 39.1 % (34.0-46.0); Hypochromasia Slight; Lymphocytes % (A) 7 %; MCHC 30.6 g/dL (31.0-37.0); MCV 94.6 fL (80.0-100.0); Mean Platelet Volume 7.2; Monocytes # (A) 0.3 k/uL (0-1.0); Monocytes % (A) 2 %; Neutrophils # (A) 12.3 k/uL (1.3-7.7); Neutrophils % (A) 90 %; Platelet Count 600 k/uL (150-450); RBC 4.13 m/uL (3.80-5.40); RDW 14.9 % (11.5-15.5); WBC 13.6 k/uL (3.8-10.6)
[2018-12-03 16:24] LABS: Albumin 3.4 g/dL (3.5-5.0); Calcium 9.3 mg/dL (8.4-10.2); Magnesium 1.9 mg/dL (1.6-2.3); Total Bilirubin 0.4 mg/dL (0.2-1.3); Total Protein 6.4 g/dL (6.3-8.2)
[2018-12-03 16:58] LABS: Partial Thromboplastin Time 18.4 sec (22.0-30.0)
[2018-12-03] MEDS ORDERED: SODIUM CHLORIDE 0.9% 1,000 ML IV ONE (18:19)
[2018-12-03] MEDS ORDERED: HYDROcodone/APAP 5-325MG 1 EACH TAB PO STA (18:46)
[2018-12-03] MEDS ORDERED: LORazepam 2 MG/ML INJ IV STA (18:46)
[2018-12-03] MEDS ORDERED: ACETAMINOPHEN TAB 325 MG TAB PO PRN (20:38)
[2018-12-03] MEDS ORDERED: MELATONIN 3 MG TABLET PO PRN (20:38)
[2018-12-03] MEDS ORDERED: BISACODYL 10 MG SUPP RECTAL PRN (20:38)
[2018-12-03] MEDS ORDERED: MAGNESIUM HYDROXIDE 2,400 MG/10 ML CUP PO PRN (20:38)
[2018-12-03] MEDS: LORazepam 1 MG TAB PO SCH (21:13)
[2018-12-03] MEDS: BALSALAZIDE DISODIUM 750 MG CAPSULE PO SCH (21:15)
[2018-12-03] MEDS: FAMOTIDINE 20 MG TAB PO SCH (21:15)
[2018-12-03] MEDS: CLINDAMYCIN 150 MG CAP PO SCH (21:15)
[2018-12-03] MEDS: BACITRACIN 500 UNIT/GM OINT 28.4 GM TUBE TOPICAL SCH (21:16)
[2018-12-03 23:02] LABS: Basophils % (A) 0 %; Eosinophils % (A) 1 %; HCT 29.1 % (34.0-46.0); Hypochromasia Slight; Lymphocytes # (A) 1.2 k/uL (1.0-4.8); Lymphocytes % (A) 16 %; MCH 30.2 pg (25.0-35.0); MCV 94.4 fL (80.0-100.0); Mean Platelet Volume 6.8; Monocytes # (A) 0.5 k/uL (0-1.0); Monocytes % (A) 7 %; Neutrophils # (A) 5.7 k/uL (1.3-7.7); Neutrophils % (A) 76 %; Platelet Count 420 k/uL (150-450); RBC 3.09 m/uL (3.80-5.40); WBC 7.6 k/uL (3.8-10.6)
[2018-12-03 23:15] LABS: HGB 9.3 gm/dL (11.4-16.0)
[2018-12-04] MEDS: HYDROcodone/APAP 5-325MG 1 EACH TAB PO PRN ×2 (04:44→18:15)
[2018-12-04 08:01] LABS: Basophils % (A) 0 %; Eosinophils # (A) 0.2 k/uL (0-0.7); Eosinophils % (A) 1 %; HCT 30.2 % (34.0-46.0); Lymphocytes # (A) 3.7 k/uL (1.0-4.8); Lymphocytes % (A) 31 %; MCH 30.5 pg (25.0-35.0); MCHC 33.2 g/dL (31.0-37.0); MCV 91.8 fL (80.0-100.0); Mean Platelet Volume 7.8; Monocytes # (A) 0.9 k/uL (0-1.0); Monocytes % (A) 8 %; Neutrophils % (A) 59 %; Platelet Count 409 k/uL (150-450); RBC 3.29 m/uL (3.80-5.40); RDW 15.2 % (11.5-15.5); WBC 11.9 k/uL (3.8-10.6)
[2018-12-04] MEDS: CITALOPRAM HYDROBROMIDE 10 MG TAB PO SCH (08:55)
[2018-12-04] MEDS: LEVOTHYROXINE 100 MCG TAB PO SCH (08:55)
[2018-12-04] MEDS: BALSALAZIDE DISODIUM 750 MG CAPSULE PO SCH ×3 (08:55→21:29)
[2018-12-04] MEDS: LEVOTHYROXINE 75 MCG TAB PO SCH (08:55)
[2018-12-04] MEDS: FAMOTIDINE 20 MG TAB PO SCH ×2 (08:55→21:29)
[2018-12-04] MEDS: VERAPAMIL SR 240 MG TABLET.ER PO SCH (08:55)
[2018-12-04] MEDS: POTASSIUM CHLORIDE ER 10 MEQ TAB.ER.PRT PO SCH (08:55)
[2018-12-04] MEDS: LORATADINE 10 MG TAB PO SCH (08:55)
[2018-12-04] MEDS: CLINDAMYCIN 150 MG CAP PO SCH ×2 (08:55→21:29)
[2018-12-04] MEDS: BACITRACIN 500 UNIT/GM OINT 28.4 GM TUBE TOPICAL SCH ×2 (08:56→21:33)
[2018-12-04] MEDS: FLUTICASONE 110 MCG INHALER INHALATION SCH ×2 (09:09→19:57)
[2018-12-04 10:11] VITALS: BMI 26.4
--- NOTE | 2018-12-04 11:30 | P.CONS ---
History of Present Illness - Reason for Consult Consult date: 12/04/18 GI bleed history of ulcerative colitis Requesting physician: Justice [facility] - Chief Complaint GI bleed - History of Present Illness 78-year-old female patient of Dr. Powers with a past medical history of ulcerative colitis recently discharged last week exacerbation of ulcerative colitis she was discharged on balsalazide and a prednisone taper. She was scheduled for outpatient screening colonoscopy 12/11/[address] Powers; last colonoscopy 2 years ago. She returns from the [facility] with reports of a blood tinged bowel movement as well as a drop in hemoglobin. Discharge hemoglobin was 8.3 admission hemoglobin 9.6 presently 10. C. diff testing 1 week ago was negative. Additional chemistry sodium 133. Potassium 2.6. BUN 14. Creatinine 0.7. C-reactive protein last week on discharge was 38 improved from 171. Presently denies abdominal pain. Since admission no reports of gross hematochezia melena or hematemesis. Afebrile. Review of Systems Constitutional: Denies fever, chills, sweats, weight gain, or loss. HEENT: Negative for migraines, blurred vision or loss, earaches, drainage, tinnitus, oral mucosal lesions, dysphagia, or odynophagia. CARDIAC: Negative for chest pain, arrhythmias, or palpitation. RESPIRATORY: Negative for shortness of breath, hemoptysis, cough, or sputum production. GI: See HPI for pertinent findings. : Negative for hematuria, urgency, frequency, polyuria, or dysuria. GYNc: Negative vaginal discharge. MUSCULOSKELETAL: Negative for muscle aches, swelling, arthritis, and arthralgi as. NEUROLOGIC: Negative for stroke or TIA. ENDOCRINE: Negative for thyroid problems. SKIN: Negative for rash or itching. PSYCHIATRIC: Negative history for depression and anxiety Past Medical History Past Medical History: Asthma, GERD/Reflux, Hyperlipidemia, Hypertension, Osteoarthritis (OA), Thyroid Disorder Additional Past Medical History / Comment(s): Ventricular arrhythmia, ulcerative colitis, IBS, diverticular disease, ischemic bowel treated with antibiotics, hemorrhoids, scoliosis, back pain, Raynaulds bilaterally, osteoporosis, hypothyroid, statins-elevated LFT, sinus problems. History of Any Multi-Drug Resistant Organisms: None Reported Past Surgical History: Appendectomy, Breast Surgery, Cholecystectomy, Hysterectomy, Joint Replacement, Tonsillectomy Additional Past Surgical History / Comment(s): Bilateral total knee arthrop lasty, hilda cataracts/lens implants, bilateral breast biopsies-benign, colonoscopies, pain injections. Past Anesthesia/Blood Transfusion Reactions: No Reported Reaction Past Psychological History: Anxiety Additional Psychological History / Comment(s): Pt resides in her own home that is attached to her son's home, [place]. She uses a cane to ambulate. She no longer drives. Smoking Status: Never smoker Past Alcohol Use History: None Reported Past Drug Use History: None Reported - Past Family History Mother Family Medical History: No Reported History Additional Family Medical History / Comment(s): Mother was obese and an alcoholic Father Additional Family Medical History / Comment(s): Father was an alcoholic. Medications and Allergies Home Medications Medication Instructions Recorded Confirmed Type Albuterol Sulfate [Ventolin HFA] 1 - 2 puff INHALATION RT-QID PRN 05/17/14 12/03/18 History Beclomethasone Dipropionate [Qvar 2 puff INHALATION RT-BID 05/17/14 12/03/18 History 80 mcg/puff] LORazepam [Lorazepam] 1 mg PO HS 05/17/14 12/03/18 History Levothyroxine Sodium [Synthroid] 175 mcg PO DAILY 05/17/14 12/03/18 History Citalopram Hydrobromide [CeleXA] 10 mg PO DAILY 03/22/16 12/03/18 History Ranitidine HCl 150 mg PO BID 03/08/17 12/03/18 History Cholecalciferol (Vitamin D3) 2,000 unit PO DAILY 02/14/18 12/03/18 History [Vitamin D3] Fexofenadine HCl [Kimber Allergy] 180 mg PO DAILY 02/14/18 12/03/18 History Verapamil Sr [Isoptin Sr] 240 mg PO DAILY 02/14/18 12/03/18 History Ondansetron HCl [Zofran] 4 - 8 mg PO Q12H PRN 11/25/18 12/03/18 History Acetaminophen Tab [Tylenol] 650 mg PO Q6HR PRN tab 11/29/18 12/03/18 Rx Balsalazide Disodium [Colazal] 2,250 mg PO TID #270 cap 11/29/18 12/03/18 Rx Clindamycin [Cleocin] 150 mg PO Q12H 5 Days #10 capsule 11/29/18 12/03/18 Rx HYDROcodone/APAP 5-325MG [[place] 1 tab PO Q8H PRN #6 tab 11/29/18 12/03/18 Rx 5-325] Melatonin 3 mg PO HS PRN tablet 11/29/18 12/03/18 Rx Bacitracin Oint 1 applic TOPICAL BID 12/03/18 12/03/18 History Bisacodyl [Dulcolax] 10 mg RECTAL DAILY PRN 12/03/18 12/03/18 History Heparin Sodium,Porcine [Heparin 5,000 unit SQ BID 12/03/18 12/03/18 History Sodium] Magnesium Hydroxide [Milk of 7,200 mg PO DAILY PRN 12/03/18 12/03/18 History Magnesia Concentrate] Na Phos,M-B/Na Phos,Di-Ba [Fleet 133 ml RECTAL ONCE PRN 12/03/18 12/03/18 Hist ory Adult] Potassium Chloride ER [K-Dur 10] 10 meq PO DAILY 12/03/18 12/03/18 History predniSONE See Taper PO DIRECTED 12/03/18 12/03/18 History Allergies Allergy/AdvReac Type Severity Reaction Status Date / Time Sulfa (Sulfonamide Allergy Severe Rash/Hives Verified 12/03/18 15:14 Antibiotics) PRIYA Inhibitors Allergy Unknown Verified 12/03/18 15:14 atorvastatin calcium Allergy Swelling Verified 12/03/18 15:14 [From Lipitor] atropine sulfate Allergy Unknown Verified 12/03/18 15:14 [From Lomotil] Cephalosporins Allergy Unknown Verified 12/03/18 15:14 dicyclomine HCl [From Bentyl] Allergy Nausea Verified 12/03/18 15:14 diphenoxylate HCl Allergy Unknown Verified 12/03/18 15:14 [From Lomotil] propoxyphene napsylate Allergy Unknown Verified 12/03/18 15:14 [From Darvocet-N 100] Scsuiql-Boa-Vad Reductase Allergy muscle pain Verified 12/03/18 15:14 Inhibitor acetaminophen AdvReac Unknown Verified 12/03/18 15:14 [From Darvocet-N 100] lopidimine Allergy Unknown Uncoded 02/14/18 10:53 Physical Exam Vitals: Vital Signs Temp Pulse Pulse Resp BP BP Pulse Ox 12/04/18 04:00 97.2 F L 53 L 16 158/79 100 12/04/18 03:44 72 16 143/69 95 12/03/18 21:17 97.8 F 51 L 16 136/64 92 L 12/03/18 19:20 16 12/03/18 19:10 97.9 F 61 16 123/57 100 12/03/18 19:00 72 117/59 12/03/18 18:50 59 L 117/59 12/03/18 18:40 59 L 107/56 12/03/18 18:30 59 L 122/56 12/03/18 18:20 58 L 16 122/56 12/03/18 18:10 58 L 103/83 12/03/18 18:00 58 L 114/59 12/03/18 17:50 56 L 114/59 12/03/18 17:40 57 L 114/65 12/03/18 17:30 58 L 123/58 98 12/03/18 17:20 58 L 123/58 100 12/03/18 17:10 55 L 126/57 12/03/18 17:00 56 L 111/72 12/03/18 16:50 63 111/72 12/03/18 16:40 61 117/68 12/03/18 16:30 60 104/57 95 12/03/18 16:20 60 16 104/57 100 12/03/18 16:10 58 L 91/51 100 12/03/18 16:00 67 103/45 100 12/03/18 15:50 74 103/45 72 L 12/03/18 15:40 62 16 107/57 100 12/03/18 15:04 97.8 F 65 18 111/54 100 Intake and Output 12/03/18 12/04/18 12/04/18 22:59 06:59 14:59 Intake Total 1090 0 Balance 1090 0 Intake: Amount of Fluid Infused ( 500 ml) Oral 590 0 Other: Voiding Method Bedside Commode Bedside Commode Diaper Diaper Incontinent Incontinent # Voids 5 # Bowel Movements 4 Weight 70 kg 70 kg General appearance: The patient is alert, oriented, in no acute distress. HET: Head is normocephalic and atraumatic. Pupils are equal and reactive. Oropharynx is clear without lesions. Neck: Supple without lymphadenopathy. Trachea midline. Heart: S1 S2. Regular rate and rhythm. Lungs: No crackles or wheezes are heard. Abdomen: Soft, nontender, nondistended with bowel sounds. No peritoneal signs. No palpable organomegaly or masses. Extremities: No edema.. Neurological: No focal deficits. Strength and sensation are grossly intact. Results CBC & Chem 7: 12/04/18 07:53 12/03/18 15:25 Labs: Abnormal Lab Results - Last 24 Hours (Table) 12/03/18 12/03/18 12/03/18 Range/Units 15:25 15:25 15:25 WBC 13.6 H (3.8-10.6) k/uL RBC (3.80-5.40) m/uL Hgb (11.4-16.0) gm/dL Hct (34.0-46.0) % MCHC 30.6 L (31.0-37.0) g/dL Plt Count 600 H (150-450) k/uL Neutrophils # 12.3 H (1.3-7.7) k/uL APTT 18.4 L (22.0-30.0) sec Sodium 135 L (137-145) mmol/L Potassium 3.0 L (3.5-5.1) mmol/L Chloride 94 L (98-107) mmol/L Glucose 122 H (74-99) mg/dL AST 40 H (14-36) U/L Albumin 3.4 L (3.5-5.0) g/dL 12/03/18 12/04/18 Range/Units 22:08 07:53 WBC 11.9 H (3.8-10.6) k/uL RBC 3.09 L 3.29 L (3.80-5.40) m/uL Hgb 9.3 L D 10.0 L (11.4-16.0) gm/dL Hct 29.1 L 30.2 L (34.0-46.0) % MCHC (31.0-37.0) g/dL Plt Count (150-450) k/uL Neutrophils # (1.3-7.7) k/uL APTT (22.0-30.0) sec Sodium (137-145) mmol/L Potassium (3.5-5.1) mmol/L Chloride (98-107) mmol/L Glucose (74-99) mg/dL AST (14-36) U/L Albumin (3.5-5.0) g/dL Assessment and Plan (1) Ulcerative colitis Narrative/Plan: 78-year-old female presents with hematochezia hypokalemia with a known history of underlying ulcerative colitis recently hospitalized for exacerbation of ulcerative colitis maintained on balsalazide and prednisone therapy. Outpatient colonoscopy scheduled one week for screening with Dr. Powers. Current Visit: Yes Status: Acute Code(s): K51.90 - ULCERATIVE COLITIS, UNSPECIFIED, WITHOUT COMPLICATIONS SNOMED Code(s): 98666795 (2) Hematochezia Narrative/Plan: Component of acute blood loss anemia hemoglobin stable. Current Visit: Yes Status: Acute Code(s): K92.1 - MELENA SNOMED Code(s): 582165059 Plan: 1. Continue with prednisone 40 mg daily taper down by 5 mg every 5 days. Balsalazide 2250 g 3 times a day. Outpatient colonoscopy screening scheduled December [address] Powers. Daily CBC. Check CRP and monitor. Low residue diet. Follow closely with you. Thank you for this kind referral and the opportunity to participate in the care of your patient. This consultation was discussed with Dr. Resendiz. The impression and plan of care have been directed as dictated.
[2018-12-04] MEDS: predniSONE 20 MG TAB PO SCH (12:36)
--- NOTE | 2018-12-04 16:45 | HP ---
HISTORY AND PHYSICAL DATE OF ADMISSION: 12/03/2018 DATE OF SERVICE: 12/04/2018 PRESENTING COMPLAINT: Bleeding per rectum. HISTORY OF PRESENTING COMPLAINT: This is a very pleasant 78-year-old patient of Dr. Daly whose chronic stable medical conditions include asthma, GERD, hyperlipidemia, hypertension, osteoarthritis, hypothyroid, diverticulosis, hemorrhoids, scoliosis, chronic low back pain. Patient also has ulcerative colitis, being followed by Dr. Kristi Powers. The patient was discharged from the hospital less than a week ago and is due to have a colonoscopy by Dr. Kristi Powers. The patient has been on steroids. Patient on last admission did have a CT scan that showed sigmoid colon thickening. Patient presents with bleeding per rectum, a significant amount. She was sent in from the [facility]. Patient's appetite is okay. Not really any abdominal pain; some discomfort. Weak and tired. REVIEW OF SYSTEMS: CONSTITUTIONAL: Tired. HEENT: None. RESPIRATORY: None. CARDIOVASCULAR: None. GASTROINTESTINAL: As above. GENITOURINARY: None. MUSCULOSKELETAL: Arthritic pain in the joints. Brace on the left hand. DERMATOLOGICAL: Bruising. HEMATOLOGICAL: As above. PSYCHIATRY: Slightly forgetful. NEUROLOGICAL: Denies weakness. PAST MEDICAL HISTORY: 1. Asthma. 2. GERD. 3. Hypertension. 4. Hyperlipidemia. 5. Osteoarthritis. 6. Hypothyroidism. 7. Ulcerative colitis. 8. Diverticulosis. 9. Hemorrhoids. 10.Scoliosis. 11.Back pain. 12.Left hand second and third metacarpal neck fracture. PSYCH HISTORY: Anxiety. SOCIAL HISTORY: No smoking. No alcohol. Currently a resident of [facility]. HOME MEDICATIONS: 1. Prednisone taper. 2. Verapamil SR 240 mg a day. 3. Zantac 150 mg b.i.d. 4. Potassium 10 mEq a day. 5. Zofran 4 to 8 mg q.12 p.r.n. 6. Fleet Adult 130 mL p.r.n. 7. Melatonin 3 mg at bedtime p.r.n. 8. Milk of Magnesia 7200 mg p.o. daily p.r.n. 9. Synthroid 175 mcg p.o. daily. 10.Lorazepam 1 mg p.o. at bedtime. 11.Heparin 5000 units subcutaneously b.i.d. 12.[place] 5 one tablet q.8 p.r.n. 13.Ikmber 180 mg p.o. daily. 14.Clindamycin 150 mg q.12. 15.Celexa 10 mg p.o. daily. 16.Vitamin D3 2000 units p.o. daily. 17.Dulcolax 10 mg rectally daily p.r.n. 18.Qvar 80 two puffs b.i.d. 19.Colazal 2250 p.o. t.i.d. 20.Bacitracin ointment 1 application topically b.i.d. 21.Ventolin HFA 1-2 puffs q.i.d. p.r.n. ALLERGIES: 1. SULFA. 2. PRIYA INHIBITOR. 3. LIPITOR. 4. ATROPINE. 5. CEPHALOSPORIN. 6. DICYCLOMINE. 7. LOMOTIL. 8. STATINS. 9. DARVOCET-N 100. 10.LOPIDIMINE. PHYSICAL EXAMINATION: Temperature 97.8, pulse 65, respiration 18, blood pressure 111/54, pulse ox 100% on room air. GENERAL APPEARANCE: Average build. Sitting up, a bit tired-appearing. EYES: Pupils equal. Conjunctivae normal. HEENT: External appearance of nose and ears normal. Oral cavity normal. NECK: JVD not raised. Mass not palpable. RESPIRATORY: Effort normal. LUNGS: Fair air entry. CARDIOVASCULAR: First and second sounds normal. No edema. ABDOMEN: Soft. Minimal tenderness. Liver and spleen not palpable. LYMPHATIC: No lymph node palpable in neck or axillae. PSYCHIATRY: Alert and oriented x3. Mood and affect slightly anxious-appearing. EXTREMITIES: Left arm in a supportive brace. Some bruising. INVESTIGATIONS: White count 13.6. Hemoglobin was 12; repeats were 9.3 and 10. Potassium 3. BUN 15, creatinine 0.87. Troponin less than 0.012. ASSESSMENT: 1. Acute lower gastrointestinal bleed, likely from acute ulcerative colitis. 2. Moderate persistent asthma. 3. Gastroesophageal reflux disease. 4. Hyperlipidemia. 5. Essential hypertension. 6. Primary osteoarthritis. 7. Chronic hemorrhoids. 8. Chronic scoliosis. 9. Left hand second and third metacarpal neck fracture. PLAN: Home medications are resumed. GI was consulted. I did speak to Clau from GI. Patient is currently on prednisone 40 mg. Did discuss whether patient needs to have colonoscopy on this admission and/or if patient needs to have a steroid enema, as she is still actively bleeding. Will await further input from them. In the meantime, patient's home medications are to continue. Keep an eye on patient's hemoglobin. Will follow. MMODL / IJN: [id number] /
[2018-12-04] MEDS: LORazepam 1 MG TAB PO SCH (21:29)
[2018-12-05] MEDS: LEVOTHYROXINE 75 MCG TAB PO SCH (06:03)
[2018-12-05] MEDS: LEVOTHYROXINE 100 MCG TAB PO SCH (06:03)
[2018-12-05] MEDS: FLUTICASONE 110 MCG INHALER INHALATION SCH ×2 (08:06→21:20)
[2018-12-05 09:00] LABS: Basophils % (A) 0 %; Eosinophils % (A) 1 %; HGB 9.4 gm/dL (11.4-16.0); Hypochromasia Moderate; Lymphocytes # (A) 1.1 k/uL (1.0-4.8); Lymphocytes % (A) 16 %; MCH 29.8 pg (25.0-35.0); MCHC 31.2 g/dL (31.0-37.0); MCV 95.4 fL (80.0-100.0); Mean Platelet Volume 6.8; Monocytes # (A) 0.5 k/uL (0-1.0); Monocytes % (A) 7 %; Neutrophils # (A) 5.2 k/uL (1.3-7.7); Neutrophils % (A) 75 %; Platelet Count 376 k/uL (150-450); RBC 3.14 m/uL (3.80-5.40); WBC 6.9 k/uL (3.8-10.6)
[2018-12-05 09:11] LABS: Anion Gap 6 mmol/L; Blood Urea Nitrogen 17 mg/dL (7-17); Carbon Dioxide 31 mmol/L (22-30); Chloride 99 mmol/L (98-107); Glucose 85 mg/dL (74-99); Sodium 136 mmol/L (137-145)
[2018-12-05] MEDS: CITALOPRAM HYDROBROMIDE 10 MG TAB PO SCH (09:13)
[2018-12-05] MEDS: CLINDAMYCIN 150 MG CAP PO SCH ×2 (09:13→21:12)
[2018-12-05] MEDS: BALSALAZIDE DISODIUM 750 MG CAPSULE PO SCH ×3 (09:13→21:13)
[2018-12-05] MEDS: predniSONE 20 MG TAB PO SCH (09:14)
[2018-12-05] MEDS: VERAPAMIL SR 240 MG TABLET.ER PO SCH (09:14)
[2018-12-05] MEDS: BACITRACIN 500 UNIT/GM OINT 28.4 GM TUBE TOPICAL SCH ×2 (09:14→21:11)
[2018-12-05] MEDS: POTASSIUM CHLORIDE ER 10 MEQ TAB.ER.PRT PO SCH (09:14)
[2018-12-05] MEDS: FAMOTIDINE 20 MG TAB PO SCH ×2 (09:14→21:11)
[2018-12-05] MEDS: LORATADINE 10 MG TAB PO SCH (09:14)
[2018-12-05 09:24] LABS: Potassium 2.7 mmol/L (3.5-5.1)
[2018-12-05] MEDS: HYDROcodone/APAP 5-325MG 1 EACH TAB PO PRN ×2 (12:15→21:10)
--- NOTE | 2018-12-05 12:30 | P.PN ---
Subjective Progress Note Date: 12/05/18 Principal diagnosis: Ulcerative colitis rectal bleeding Nonbloody bowel movement this morning. Patient slightly more confused. Patient was found self impacting. Afebrile. Hemoglobin stable 9.4. White count 6.9. CRP 9.6-12. Receiving oral steroids and balsalazide. Denies abdominal pain. No nausea vomiting. Objective - Vital Signs Vital signs: Vital Signs Temp 97.3 F L 12/05/18 12:23 Pulse 69 12/05/18 12:23 Resp 17 12/05/18 12:23 BP 108/56 12/05/18 12:23 Pulse Ox 100 12/05/18 12:23 Intake & Output 12/04/18 12/05/18 12/05/18 18:59 06:59 18:59 Intake Total 600 1180 Balance 600 1180 Weight 70 kg Intake: Intake, IV Titration 600 Amount Sodium Chloride 0.9% 1, 600 000 ml @ 75 mls/hr IV . [id number] Rx#:[id number] Oral 1180 Other: Voiding Method Bedside Commode Bedside Commode Bedside Commode Diaper Diaper Diaper Incontinent Incontinent Incontinent # Voids 1 - Exam General appearance: The patient is alert, self in no acute distress. HET: Head is normocephalic and atraumatic. Pupils are equal and reactive. Oropharynx is clear without lesions. Neck: Supple without lymphadenopathy. Trachea midline. Heart: S1 S2. Regular rate and rhythm. Lungs: No crackles or wheezes are heard. Abdomen: Soft, nontender, nondistended with bowel sounds. No peritoneal signs. No palpable organomegaly or masses. Extremities: Normal skin color and turgor. No cyanosis, rash, ulceration, clubbing, or edema. Radial and pedal pulses are 2/4 bilaterally. Neurological: No focal deficits. Strength and sensation are grossly intact. - Labs CBC & Chem 7: 12/05/18 07:59 12/05/18 07:59 Labs: Abnormal Lab Results - Last 24 Hours (Table) 12/05/18 12/05/18 Range/Units 07:59 07:59 RBC 3.14 L (3.80-5.40) m/uL Hgb 9.4 L (11.4-16.0) gm/dL Hct 30.0 L (34.0-46.0) % Sodium 136 L (137-145) mmol/L Potassium 2.7 L* (3.5-5.1) mmol/L Carbon Dioxide 31 H (22-30) mmol/L Calcium 8.0 L (8.4-10.2) mg/dL C-Reactive Protein 12.0 H (<10.0) mg/L Assessment and Plan (1) Ulcerative colitis Narrative/Plan: 78-year-old female presents with hematochezia hypokalemia with a known history o f underlying ulcerative colitis recently hospitalized for exacerbation of ulcerative colitis maintained on balsalazide and prednisone therapy. Outpatient colonoscopy scheduled one week for screening with Dr. Powers. Current Visit: Yes Status: Acute Code(s): K51.90 - ULCERATIVE COLITIS, UNSPECIFIED, WITHOUT COMPLICATIONS SNOMED Code(s): 30729275 (2) Hematochezia Narrative/Plan: Component of acute blood loss anemia hemoglobin stable. Current Visit: Yes Status: Acute Code(s): K92.1 - MELENA SNOMED Code(s): 935041632 Plan: 1. No active GI bleed since admission. CRP less than 15. Hemoglobin stable. Afebrile. No abdominal complaints. Continue with prednisone and decrease to 35 mg daily starting tomorrow 12/06/2018. Decrease by 5 mg every 7 days; 35 mg daily 7 days 30 mg daily 7 days 25 mg daily 7 days 20 mg daily 7 days 15 mg daily 7 days 10 mg daily 7 days. Balsalazide 2250 g 3 times a day. Outpatient colonoscopy screening scheduled December [address] Powers. Low residue diet. Discharge per medicine evaluation. Assessment and plan a care discussed with Dr. Resendiz
[2018-12-05] MEDS: POTASSIUM CHLORIDE ER 20 MEQ TAB.ER PO SCH ×2 (13:12→16:12)
[2018-12-05] MEDS ORDERED: POTASSIUM CHLORIDE ER 20 MEQ TAB.ER PO STA (19:56)
--- NOTE | 2018-12-05 22:28 | PN ---
PROGRESS NOTE DATE OF SERVICE: 12/05/2018 PRESENTING COMPLAINT: Bleeding per rectum. INTERVAL HISTORY: This patient presented with exacerbation of ulcerative colitis, felt to be stable now. She is on steroids. Per the daughter at the bedside, the patient occasionally gets confused since being moved back from the ECF. I spoke to Clau from GI today. Patient to continue the current dose of steroids per Dr. Resendiz. No indication currently for rectal steroids. Patient has had a brown stool. Tolerating some diet. Patient's family at the bedside. REVIEW OF SYSTEMS: Done for constitutional, cardiovascular, GI, pulmonary; relevant findings as above. CURRENT MEDICATIONS: Reviewed. They include oral prednisone and Calazal. PHYSICAL EXAMINATION: Temperature 97.3, pulse 69, respiration 17, blood pressure 108/56, pulse ox 100% on room air. GENERAL APPEARANCE: Sitting up, awake. EYES: Pupils equal. Conjunctivae pale. NECK: JVD not raised. Mass not palpable. RESPIRATORY: Effort normal. LUNGS: Fair air entry. CARDIOVASCULAR: First and second sounds normal. No edema. ABDOMEN: Soft, non-tender. Liver and spleen not palpable. PSYCHIATRY: Patient is able to answer questions. Occasionally gets confused. EXTREMITIES: Left arm in a supportive brace. Some bruising. INVESTIGATIONS: White count 6.9, hemoglobin 9.4, potassium 2.7. ASSESSMENT: 1. Acute lower gastrointestinal bleed, likely from acute ulcerative colitis, improving, stable now on oral steroids. 2. Moderate persistent asthma. 3. Gastroesophageal reflux disease. 4. Hyperlipidemia. 5. Essential hypertension. 6. Primary osteoarthritis. 7. Chronic hemorrhoids. 8. Chronic scoliosis. 9. Left hand second and third metacarpal neck fracture. 10.Acute delirium from rapid change in her place. PLAN: I had a lengthy talk with the daughter at the bedside. I discussed overall care. Did also speak earlier to Clau. Patient's potassium is aggressively being replaced. I am hoping that the patient can go back to the ECF tomorrow. Hemoglobin has remained stable. Total time spent today was about 40-45 minutes with close to 30 minutes of discussion. MMODL / IJN: [id number] /
[2018-12-05] MEDS: LORazepam 1 MG TAB PO SCH (23:02)
[2018-12-05] MEDS ORDERED: LORazepam 1 MG TAB PO PRN (23:03)
[2018-12-06 04:21] VITALS: RESP 16
[2018-12-06] MEDS: LEVOTHYROXINE 75 MCG TAB PO SCH (05:27)
[2018-12-06] MEDS: LEVOTHYROXINE 100 MCG TAB PO SCH (05:27)
[2018-12-06 08:17] LABS: Calcium 8.6 mg/dL (8.4-10.2)
[2018-12-06 08:25] LABS: Potassium 4.6 mmol/L (3.5-5.1)
[2018-12-06] MEDS: LORATADINE 10 MG TAB PO SCH (08:59)
[2018-12-06] MEDS: CLINDAMYCIN 150 MG CAP PO SCH (08:59)
[2018-12-06] MEDS: VERAPAMIL SR 240 MG TABLET.ER PO SCH (08:59)
[2018-12-06] MEDS: BALSALAZIDE DISODIUM 750 MG CAPSULE PO SCH (08:59)
[2018-12-06] MEDS: FAMOTIDINE 20 MG TAB PO SCH (08:59)
[2018-12-06] MEDS: CITALOPRAM HYDROBROMIDE 10 MG TAB PO SCH (08:59)
[2018-12-06] MEDS: POTASSIUM CHLORIDE ER 10 MEQ TAB.ER.PRT PO SCH (08:59)
[2018-12-06] MEDS ORDERED: predniSONE 10 MG TAB PO SCH (09:00)
[2018-12-06] MEDS: FLUTICASONE 110 MCG INHALER INHALATION SCH (09:21)
[2018-12-06] MEDS: HYDROcodone/APAP 5-325MG 1 EACH TAB PO PRN (10:39)
[2018-12-06 13:05] VITALS: BP 146/75; PULSE 52; TEMP 97.6
--- NOTE | 2018-12-06 14:08 | DS ---
DISCHARGE SUMMARY DATE OF ADMISSION: 12/03/2018 DATE OF DISCHARGE: 12/06/2018 FINAL DIAGNOSES: 1. Acute lower gastrointestinal bleed from acute ulcerative colitis flare up. 2. Moderate persistent asthma. 3. Gastroesophageal reflux disease. 4. Hyperlipidemia. 5. Essential hypertension. 6. Primary osteoarthritis. 7. Chronic hemorrhoids. 8. Chronic scoliosis. 9. Left hand second and third metacarpal neck fracture on a brace support. 10.Acute delirium from environmental change. HOSPITAL COURSE: This patient who has chronic ulcerative colitis did present with some bleeding, seen by Dr. Resendiz. Patient is continued on steroids. Doing better. The patient is tolerating a diet. The patient is due for a colonoscopy by Dr. Powers in the near future. Care had been discussed with the family. The patient is a bit delirious because of change in environment. Otherwise stable. PHYSICAL EXAMINATION: On examination, temperature 97.6 pulse 52, respiration 16, blood pressure 146/75, pulse ox 99% on room air. ABDOMEN: Soft, nontender. Patient is answering simple questions. INVESTIGATIONS: Hemoglobin 9.4, potassium 4.6. DISCHARGE MEDICATIONS: 1. Ventolin HFA 1 or 2 puffs q.i.d. p.r.n. 2. Qvar 80 mcg 2 puffs b.i.d. 3. Synthroid 175 mcg a day. 4. Celexa 10 mg a day. 5. Zantac 150 mg b.i.d. 6. Vitamin D3, 2000 units p.o. daily. 7. Isoptin SR 240 mg a day. 8. Zofran 4 to 8 mg q.12 p.r.n. 9. Tylenol 650 mg q.6 p.r.n. 10.Colazal 2250 mg p.o. t.i.d. 11.Melatonin 3 mg q.h.s. p.r.n. 12.Bacitracin ointment topical b.i.d. 13.Milk of magnesia 7200 mg p.o. daily p.r.n. 14.Potassium 10 mEq p.o. daily. 15.[place] 5 one tablet q.8 p.r.n. 16.Ativan 1 mg p.o. q.h.s. p.r.n. 17.Prednisone 35 mg a day for 7 days then reduce by 5 mg every week. DISPOSITION: Salty. Follow up with Dr. Nguyen at the [facility]. Colonoscopy is scheduled on December [address] Kristi Powers. Diet: Low residue diet. MMODL / IJN: [id number] /
[2018-12-06] MEDS: BACITRACIN 500 UNIT/GM OINT 28.4 GM TUBE TOPICAL SCH (14:14)
== END 2018-12-06 15:00 | DRG 386 ==
LOC: EC 15:00 → 3NMEDONC 18:19
PROVIDERS: ADMIT Hospitalist; ATTEND Hospitalist
DX: K51.911 Ulcerative colitis, unspecified with rectal bleeding (principal); D62 Acute posthemorrhagic anemia; M41.9 Scoliosis, unspecified; E03.9 Hypothyroidism, unspecified; E78.5 Hyperlipidemia, unspecified; E87.6 Hypokalemia; G89.29 Other chronic pain; I10 Essential (primary) hypertension; J45.40 Moderate persistent asthma, uncomplicated; K21.9 Gastro-esophageal reflux disease without esophagitis; R41.0 Disorientation, unspecified; K57.90 Diverticulosis of intestine, part unspecified, without perforation or abscess without bleeding; K64.9 Unspecified hemorrhoids; M19.91 Primary osteoarthritis, unspecified site; M81.0 Age-related osteoporosis without current pathological fracture; F41.9 Anxiety disorder, unspecified; M54.5 Low back pain; I73.00 Raynaud's syndrome without gangrene; R32 Unspecified urinary incontinence; S62.331A Displaced fracture of neck of second metacarpal bone, left hand, initial encounter for closed fracture; S62.333A Displaced fracture of neck of third metacarpal bone, left hand, initial encounter for closed fracture; Z79.890 Hormone replacement therapy; Z79.899 Other long term (current) drug therapy; Z88.1 Allergy status to other antibiotic agents; Z88.5 Allergy status to narcotic agent; Z88.2 Allergy status to sulfonamides; Z88.8 Allergy status to other drugs, medicaments and biological substances; Z90.710 Acquired absence of both cervix and uterus; Z96.653 Presence of artificial knee joint, bilateral; Z90.49 Acquired absence of other specified parts of digestive tract; Z98.42 Cataract extraction status, left eye; Z98.41 Cataract extraction status, right eye; Z96.1 Presence of intraocular lens; Z81.1 Family history of alcohol abuse and dependence; X58.XXXA Exposure to other specified factors, initial encounter
CPT/HCPCS: 36415; 80048; 80053; 83735; 84132; 84484; 85025; 85610; 85730; 86140; 86850; 86900; 86901; 94640; 96361; 96374; 99284

== ENCOUNTER 2018-12-11 06:44 | Day surgery (SDC) | payer MEDICARE ==
[2018-12-10 08:16] VITALS: BMI 28.0
[~2018-12-11 06:44] MED LIST changes: -DENOSUMAB 60 MG/ML 1 ML SYRINGE SQ NR; +LIDOCAINE 1% 20 ML VIAL (10MG/ML) FOR IV START INTRADERMA PRN
[2018-12-11 07:59] VITALS: RESP 16; TEMP 98
[2018-12-11] MEDS: LACTATED RINGERS 1,000 ML IV SCH ×2 (08:08→08:10)
[2018-12-11] MEDS ORDERED: DEXTROSE 50%-WATER 50 ML SYRINGE IVP ONE (08:09)
[2018-12-11] MEDS ORDERED: PROPOFOL 10 MG/ML 20 ML VIAL IV ONE (08:10)
[2018-12-11 08:12] LABS: Glucose,Whole Blood 62 mg/dL (75-99)
--- NOTE | 2018-12-11 08:48 | P.PCN ---
Date of Procedure: 12/11/18 Procedure(s) Performed: BRIEF HISTORY: Patient is a 78-year-old pleasant white female, scheduled for an elective colonoscopy as a part of surveillance of long-standing history of ulcerative colitis diagnosed 15 years ago. She was recently hospitalized with exacerbation of ulcerative colitis and was treated with IV steroids and presently on tapering doses of oral steroids. She is doing much better. The bleeding has resolved. Has 3-4 soft bowel movements daily. PROCEDURE PERFORMED: Colonoscopy with random biopsies. PREOPERATIVE DIAGNOSIS: Long-standing history of ulcerative colitis. IV sedation per Anesthesia. PROCEDURE: After informed consent was obtained, the patient, was brought into the endoscopy unit. IV sedation was administered by Anesthesia under continuous monitoring. Digital rectal examination was normal. Initially the Olympus CF-160 flexible video colonoscope was then inserted in the rectum, and could not be advanced beyond the sigmoid colon because of acute angle duration. The scope was removed and a pediatric colonoscope was then inserted in rectum gradually advanced into the cecum with moderate to severe difficulty. Careful examination was performed as the scope was gradually being withdrawn. Ileocecal valve and the appendiceal orifice were visualized and appeared normal. Prep was excellent. Mucosa of the cecum, ascending colon, transverse colon, descending colon, sigmoid colon, and rectum appeared normal. Moderate left-sided diverticulosis seen. Random biopsies were done at every 10 cm intervals from rectum to cecum. Retroflexion was performed in the rectum and no lesions were seen. The patient tolerated the procedure well. IMPRESSION: Normal-appearing colon from rectum to cecum with no evidence of active colitis or colorectal neoplasia Scattered sigmoid diverticulosis. RECOMMENDATIONS: Findings of this examination were discussed with the patient as well as a family. She was advised to follow with the biopsy results. She will continue with colozol and continue with tapering doses of steroids. She'll be seen in the office in 4 weeks..
[2018-12-11 08:53] VITALS: PULSE 71
[2018-12-11 09:02] LABS: Glucose,Whole Blood 79 mg/dL (75-99)
[2018-12-11 09:13] VITALS: BP 171/85
== END 2018-12-11 09:32 | disposition home or self-care (01) ==
LOC: ORWHC2ENDO 06:44
PROVIDERS: ATTEND Internal Medicine Gastroenterology
DX: Z12.11 Encounter for screening for malignant neoplasm of colon (principal); K51.90 Ulcerative colitis, unspecified, without complications; K57.30 Diverticulosis of large intestine without perforation or abscess without bleeding; I10 Essential (primary) hypertension; E78.5 Hyperlipidemia, unspecified; J45.909 Unspecified asthma, uncomplicated; E07.9 Disorder of thyroid, unspecified; I73.00 Raynaud's syndrome without gangrene; K21.9 Gastro-esophageal reflux disease without esophagitis; Z79.52 Long term (current) use of systemic steroids; Z79.890 Hormone replacement therapy; Z79.891 Long term (current) use of opiate analgesic; Z79.51 Long term (current) use of inhaled steroids; Z79.899 Other long term (current) drug therapy; Z88.2 Allergy status to sulfonamides; Z88.8 Allergy status to other drugs, medicaments and biological substances; Z88.1 Allergy status to other antibiotic agents; Z88.5 Allergy status to narcotic agent
CPT/HCPCS: 88305; 45380; J2704

== ENCOUNTER 2019-04-16 19:54 | Inpatient (IN) | payer MEDICARE ==
[2019-04-16] MEDS ORDERED: MORPHINE SULFATE 4 MG/ML SYRINGE IV STA (20:14)
[2019-04-16] MEDS ORDERED: LORazepam 2 MG/ML INJ IV STA (20:33)
[2019-04-16 20:49] LABS: Albumin 3.8 g/dL (3.5-5.0); Calcium 9.5 mg/dL (8.4-10.2); Total Bilirubin 0.4 mg/dL (0.2-1.3); Total Protein 6.7 g/dL (6.3-8.2)
--- NOTE | 2019-04-16 20:58 | ED ---
Fall HPI - General Chief Complaint: Fall Stated Complaint: Fall Time Seen by Provider: 04/16/19 20:01 Source: EMS Mode of arrival: EMS Limitations: altered mental status - History of Present Illness Initial Comments: The patient is an 78-year-old female who presents to the emergency department from [facility]. The patient normally ambulates with a walker. Staff states that they took her walker away because they did not want her ambulating anymore for t he night. She attempted to get out of bed and fell in the hallway. She landed on a laminate deborah on her left side. She was unable to get up after the incident. She did have deformity to her left hip. Patient also has swelling to her left wrist and ecchymosis over her left knee. She does have a history of dementia and it is difficult to obtain a history from the patient. She denies having a syncopal episode. There is notable blunt head trauma as the patient has a laceration to her left lateral eyebrow. There is no reported loss of consciousness. The patient denies any headache, visual changes, neck pain or stiffness. There is no reported chest pain or shortness of breath. She denies any numbness or tingling in her feet. There are no other alleviating, precipitating or modifying factors - Related Data Home Medications Medication Instructions Recorded Confirmed Albuterol Sulfate [Ventolin HFA] 1 - 2 puff INHALATION RT-QID PRN 05/17/14 0 04/16/19 Beclomethasone Dipropionate [Qvar 2 puff INHALATION RT-BID@07,19005/17/14 04/16/19 80 mcg/puff] Levothyroxine Sodium [Synthroid] 175 mcg PO DAILY@69905/17/14 04/16/19 Ranitidine HCl 150 mg PO BID@0700,1900 03/08/17 04/16/19 Cholecalciferol (Vitamin D3) 2,000 unit PO DAILY@69902/14/18 04/16/19 [Vitamin D3] Verapamil Sr [Isoptin Sr] 240 mg PO DAILY@69902/14/18 04/16/19 Ondansetron HCl [Zofran] 4 - 8 mg PO Q12H PRN 11/25/18 04/16/19 Bisacodyl [Dulcolax] 10 mg RECTAL DAILY PRN 12/10/18 04/16/19 Balsalazide Disodium [Colazal] 2,250 mg PO TID@0700,1400,1900 04/16/19 04/16/19 Citalopram Hydrobromide 5 mg PO DAILY@0704/16/19 04/16/19 [Citalopram HBr] Ferrous Sulfate [Feosol] 325 mg PO Q48H 04/16/19 04/16/19 HYDROcodone/APAP 10-325MG [Sunflower 1 tab PO TID@0700,1400,1900 04/16/19 04/16/19 10-325] LORazepam [Ativan] 1 mg PO TID PRN 04/16/19 04/16/19 Melatonin 3 mg PO HS@1900 PRN 04/16/19 04/16/19 Polyethylene Glycol 3350 [Miralax] 17 gram PO DAILY@0704/16/19 04/16/19 Potassium Chloride ER [K-Dur 10] 10 meq PO BID@0700,1900 04/16/19 04/16/19 busPIRone HCL 15 mg PO TID@0700,1400,1900 04/16/19 04/16/19 traZODone HCL [TraZODone HCl] 50 mg PO HS@1900 04/16/19 04/16/19 Allergies Allergy/AdvReac Type Severity Reaction Status Date / Time Sulfa (Sulfonamide Allergy Severe Rash/Hives Verified 04/16/19 20:06 Antibiotics) NORBERT Inhibitors Allergy Unknown Verified 04/16/19 20:06 atorvastatin calcium Allergy Swelling Verified 04/16/19 20:06 [From Lipitor] atropine sulfate Allergy Unknown Verified 04/16/19 20:06 [From Lomotil] Cephalosporins Allergy Unknown Verified 04/16/19 20:06 dicyclomine HCl [From Bentyl] Allergy Nausea Verified 04/16/19 20:06 diphenoxylate HCl Allergy Unknown Verified 04/16/19 20:06 [From Lomotil] propoxyphene napsylate Allergy Unknown Verified 04/16/19 20:06 [From Darvocet-N 100] Iesnkkl-Jsh-Ihx Reductase Allergy muscle pain Verified 04/16/19 20:06 Inhibitor lopidimine Allergy Unknown Uncoded 04/16/19 20:06 Review of Systems ROS Statement: Those systems with pertinent positive or pertinent negative responses have been documented in the HPI. ROS Other: All systems not noted in ROS Statement are negative. Past Medical History Past Medical History: Dementia Additional Past Medical History / Comment(s): Ventricular arrhythmia, ulcerative colitis, IBS, diverticular disease, ischemic bowel treated with antibiotics, hemorrhoids, scoliosis, back pain, Raynaulds bilaterally, osteoporosis, hypothyroid, statins-elevated LFT, sinus problems. History of Any Multi-Drug Resistant Organisms: None Reported Past Surgical History: Appendectomy, Breast Surgery, Cholecystectomy, Hysterectomy, Joint Replacement, Tonsillectomy Additional Past Surgical History / Comment(s): Bilateral total knee arthr oplasty, hilda cataracts/lens implants, bilateral breast biopsies-benign, colonoscopies, pain injections. Past Anesthesia/Blood Transfusion Reactions: No Reported Reaction Past Psychological History: Anxiety Smoking Status: Never smoker Past Alcohol Use History: None Reported Past Drug Use History: None Reported - Past Family History Mother Family Medical History: No Reported History Additional Family Medical History / Comment(s): Mother was obese and an alcoholic Father Additional Family Medical History / Comment(s): Father was an alcoholic. General Exam Limitations: altered mental status General appearance: alert, anxious Head exam: Present: normocephalic, other (laceration left forehead 1.0 x 0.5 cm) Eye exam: Present: normal appearance, PERRL, EOMI. Absent: scleral icterus, conjunctival injection, periorbital swelling ENT exam: Present: normal exam, mucous membranes moist Neck exam: Present: normal inspection, other (c-collar in place). Absent: tenderness, meningismus, lymphadenopathy Respiratory exam: Present: normal lung sounds bilaterally. Absent: respiratory distress, wheezes, rales, rhonchi, stridor Cardiovascular Exam: Present: regular rate, normal rhythm, normal heart sounds. Absent: systolic murmur, diastolic murmur, rubs, gallop, clicks GI/Abdominal exam: Present: soft, normal bowel sounds. Absent: distended, tenderness, guarding, rebound, rigid Extremities exam: Present: tenderness (obvious deformity left wrist and left hip. Decreased flexion at the wrist and hip. 2+ radial, ulnar, popliteal, DP and PT pulses. Intact distal sensation. No pain to palpation of the knee or ankle. Compartments are soft. ), normal capillary refill. Absent: pedal edema, joint swelling, calf tenderness Back exam: Present: normal inspection Neurological exam: Present: alert, CN II-XII intact Psychiatric exam: Present: anxious, other (confused) Skin exam: Present: warm, dry, intact, normal color. Absent: rash Course Vital Signs 04/16/19 04/16/19 04/16/19 20:02 20:16 22:43 Temperature 98.4 F Pulse Rate 87 97 Respiratory 18 22 Rate Blood Pressure 187/170 166/89 O2 Sat by Pulse 95 99 Oximetry 04/16/19 04/16/19 04/17/19 23:00 23:08 00:00 Temperature Pulse Rate 79 Respiratory 18 Rate Blood Pressure 172/105 169/86 167/82 O2 Sat by Pulse 96 Oximetry Procedures - Laceration Laceration #1 Consent Obtained: verbal consent Indication: laceration Site: face Size (cm): 1 (cm) Description: linear Depth: simple, single layer Pre-repair: wound explored, irrigated extensively, deep structures intact Type of Sutures: other (Dermabond repair) Patient Tolerated Procedure: well, no complications - Orthopedic Splinting/Casting Injury #1 Side: left Upper Extremity Injury Location: wrist Upper Extremity Immobilizer: sugar tong splint, Norbert wrap, synthetic pre-padded splint Additional Comments: Patient remained neurovascularly intact after placement Medical Decision Making - Medical Decision Making Upon arrival the patient was placed into room 1. She was hooked up to continuous pulse ox and cardiac monitoring. A peripheral IV had been established by EMS. She was previously given 4 mg of morphine and 4 mg of Zofran for her pain and nausea. The patient is still in a significant amount pain and therefore she is given a second 4 mg of morphine. She is also extremely anxious and she is given 1 mg of Ativan for anxiety. The patient is in a c-collar. I did perform a CT of her brain and cervical spine. I also performed an x-ray of the patient's last wrist, left hip with pelvis and left knee. I did review the results. They're discussed with the patient. Laboratory studies had also been discussed with the patient and her son at bedside. The patient's pain is controlled at this time. I did inform her of the fractures in her wrist and hip. The patient was placed in a sugar tong splint. She did have palpable pulses in her lower extremity. She remained hemodynamically stable. The laceration on the patient's left temporal region was repaired with Dermabond. I did recommend admission to the hospital. I did call discuss the case with Dr. Lebron him he did accept admission for the patient. The patient remained in stable condition was transported to the floor - Lab Data Result diagrams: 04/20/19 18:36 04/20/19 09:48 Lab Results 04/16/19 04/16/19 04/16/19 Range/Units 20:30 20:30 21:30 WBC 14.6 H (3.8-10.6) k/uL RBC 4.17 (3.80-5.40) m/uL Hgb 10.9 L (11.4-16.0) gm/dL Hct 34.3 (34.0-46.0) % MCV 82.3 (80.0-100.0) fL MCH 26.3 (25.0-35.0) pg MCHC 31.9 (31.0-37.0) g/dL RDW 17.4 H (11.5-15.5) % Plt Count 222 (150-450) k/uL Neutrophils % 81 % Lymphocytes % 11 % Monocytes % 6 % Eosinophils % 1 % Basophils % 0 % Neutrophils # 11.9 H (1.3-7.7) k/uL Lymphocytes # 1.7 (1.0-4.8) k/uL Monocytes # 0.8 (0-1.0) k/uL Eosinophils # 0.1 (0-0.7) k/uL Basophils # 0.0 (0-0.2) k/uL Anisocytosis Slight PT (9.0-12.0) sec INR (<1.2) APTT (22.0-30.0) sec Sodium 135 L (137-145) mmol/L Potassium 4.0 (3.5-5.1) mmol/L Chloride 104 (98-107) mmol/L Carbon Dioxide 21 L (22-30) mmol/L Anion Gap 10 mmol/L BUN 19 H (7-17) mg/dL Creatinine 0.74 (0.52-1.04) mg/dL Est GFR (CKD-EPI)AfAm 89 (>60 ml/min/1.73 sqM) Est GFR (CKD-EPI)NonAf 77 (>60 ml/min/1.73 sqM) Glucose 104 H (74-99) mg/dL Calcium 9.5 (8.4-10.2) mg/dL Total Bilirubin 0.4 (0.2-1.3) mg/dL AST 22 (14-36) U/L ALT 13 (9-52) U/L Alkaline Phosphatase 77 (38-126) U/L Total Protein 6.7 (6.3-8.2) g/dL Albumin 3.8 (3.5-5.0) g/dL Blood Type A Positive Blood Type Recheck No Antibody Screen NEGATIVE Spec Expiration Date 04/19/2019 - 232904/16/19 Range/Units 21:30 WBC (3.8-10.6) k/uL RBC (3.80-5.40) m/uL Hgb (11.4-16.0) gm/dL Hct (34.0-46.0) % MCV (80.0-100.0) fL MCH (25.0-35.0) pg MCHC (31.0-37.0) g/dL RDW (11.5-15.5) % Plt Count (150-450) k/uL Neutrophils % % Lymphocytes % % Monocytes % % Eosinophils % % Basophils % % Neutrophils # (1.3-7.7) k/uL Lymphocytes # (1.0-4.8) k/uL Monocytes # (0-1.0) k/uL Eosinophils # (0-0.7) k/uL Basophils # (0-0.2) k/uL Anisocytosis PT 11.3 (9.0-12.0) sec INR 1.1 (<1.2) APTT 24.7 (22.0-30.0) sec Sodium (137-145) mmol/L Potassium (3.5-5.1) mmol/L Chloride (98-107) mmol/L Carbon Dioxide (22-30) mmol/L Anion Gap mmol/L BUN (7-17) mg/dL Creatinine (0.52-1.04) mg/dL Est GFR (CKD-EPI)AfAm (>60 ml/min/1.73 sqM) Est GFR (CKD-EPI)NonAf (>60 ml/min/1.73 sqM) Glucose (74-99) mg/dL Calcium (8.4-10.2) mg/dL Total Bilirubin (0.2-1.3) mg/dL AST (14-36) U/L ALT (9-52) U/L Alkaline Phosphatase (38-126) U/L Total Protein (6.3-8.2) g/dL Albumin (3.5-5.0) g/dL Blood Type Blood Type Recheck Antibody Screen Spec Expiration Date - EKG Data EKG Comments: EKG demonstrates a sinus tachycardia with premature ventricular complexes. Rate of 102. VA interval 124. QRS 82. QTC 477. There are no acute ST segment elevations or depressions concerning for ischemic changes - Radiology Data Radiology results: report reviewed Disposition Clinical Impression: Fall, Closed left radial fracture, Femoral neck fracture, Blunt head trauma Disposition: ADMITTED IP TO THIS [facility] Condition: Stable Is patient prescribed a controlled substance at d/c from ED?: No Decision to Admit Reason: Admit from EC Decision Date: 04/16/19 Decision Time: 23:33
[2019-04-16 21:42] LABS: Anisocytosis Slight; Basophils % (A) 0 %; Eosinophils # (A) 0.1 k/uL (0-0.7); Eosinophils % (A) 1 %; HCT 34.3 % (34.0-46.0); HGB 10.9 gm/dL (11.4-16.0); Lymphocytes # (A) 1.7 k/uL (1.0-4.8); Lymphocytes % (A) 11 %; MCH 26.3 pg (25.0-35.0); MCHC 31.9 g/dL (31.0-37.0); MCV 82.3 fL (80.0-100.0); Monocytes # (A) 0.8 k/uL (0-1.0); Monocytes % (A) 6 %; Neutrophils # (A) 11.9 k/uL (1.3-7.7); Neutrophils % (A) 81 %; Platelet Count 222 k/uL (150-450); RBC 4.17 m/uL (3.80-5.40); RDW 17.4 % (11.5-15.5); WBC 14.6 k/uL (3.8-10.6)
--- NOTE | 2019-04-16 21:45 | CT ---
EXAMINATION TYPE: CT brain cspine wo con DATE OF EXAM: 04/16/2019 COMPARISON: 11/26/2018 HISTORY: Fall. CT DLP: combined 2114.5 mGycm Automated exposure control for dose reduction was used. TECHNIQUE: CT scan of the head and cervical spine are performed without contrast. FINDINGS: There is no acute intracranial hemorrhage, mass effect, or midline shift identified. The v entricles and sulci are within normal limits in size. The globes are intact and the visualized sinus es are clear. Cervical spine is visualized in its entirety from C1 through upper thoracic levels and demonstrates s atisfactory alignment without evidence of acute fracture or dislocation. Prevertebral soft tissue ap pears within normal limits. Advanced multilevel spondylosis changes. The C1-C2 articulation is unrema rkable. IMPRESSION: 1. There is no acute fracture or dislocation evident in the cervical spine. 2. No acute intracranial hemorrhage, mass effect, or midline shift is seen.
--- NOTE | 2019-04-16 21:51 | CT ---
EXAMINATION TYPE: CT facial bones wo con DATE OF EXAM: 04/16/2019 COMPARISON: None HISTORY: Pain following fall. CT DLP: combined 2114.5 mGycm Automated exposure control for dose reduction was used. TECHNIQUE: CT scan of the sinuses is performed without contrast, axial images are obtained, coronal r eformatted images are also reviewed. FINDINGS: The orbits are intact. There is no facial skeleton fracture or malalignment. The paranasal sinuses and middle ear cavities and mastoid sinus air cells are clear. No incidental findings. IMPRESSION: No acute process.
--- NOTE | 2019-04-16 21:54 | XR ---
PROCEDURE: XR femur LT - 4 views DATE AND TIME: 04/16/2019 9:30 PM CLINICAL INDICATION: PHH; Pain TECHNIQUE: Coronal imaging was obtained from the hip to the knee. COMPARISON: 03/08/2017 FINDINGS: There is comminuted, apex-anterolateral intertrochanteric left femoral neck fracture with a pproximately 2 shaft width override and with prominent foreshortening on the anterior view. Femoral h ead remains seated within the acetabulum. No other fractures. IMPRESSION: LEFT FEMORAL NECK FRACTURE.
--- NOTE | 2019-04-16 21:55 | XR ---
PROCEDURE: XR Hip Complete LT -2 views DATE AND TIME: 04/16/2019 9:30 PM CLINICAL INDICATION: PHH; neck pain TECHNIQUE: Department protocol COMPARISON: None FINDINGS: There is comminuted, apex-anterolateral intertrochanteric left femoral neck fracture with a pproximately 2 shaft width override and with prominent foreshortening on the anterior view. Femoral h ead remains seated within the acetabulum. No other fractures. IMPRESSION: LEFT FEMORAL NECK FRACTURE.
--- NOTE | 2019-04-16 21:56 | XR ---
PROCEDURE: XR knee limited LT - 2 views DATE AND TIME: 04/16/2019 9:30 PM CLINICAL INDICATION: PHH; Pain TECHNIQUE: AP and crosstable lateral. COMPARISON: None FINDINGS: There is no fracture or malalignment. TKR is intact. The soft tissues are unremarkable. IMPRESSION: NO ACUTE PROCESS.
[2019-04-16] MEDS ORDERED: fentaNYL (PF) 50 MCG/ML 2 ML AMP IVP STA (21:57)
[2019-04-16 21:58] LABS: INR 1.1 (<1.2); Partial Thromboplastin Time 24.7 sec (22.0-30.0); Prothrombin Time 11.3 sec (9.0-12.0)
--- NOTE | 2019-04-16 21:58 | XR ---
PROCEDURE: XR wrist complete LT - 3V DATE AND TIME: 04/16/2019 9:30 PM CLINICAL INDICATION: PHH; Pain TECHNIQUE: Department protocol COMPARISON: The 09 04 FINDINGS: There is generalized osteopenia. There is a nondisplaced comminuted transverse fracture of the distal radius, with involvement of the DRUJ and, likely, the radiocarpal joint. No other fractures. IMPRESSION: DISTAL LEFT RADIUS FRACTURE.
--- NOTE | 2019-04-16 22:29 | XR ---
EXAMINATION: XR chest 1V DATE AND TIME: 04/16/2019 9:30 PM CLINICAL INDICATION: PHH; neck pain TECHNIQUE: AP supine, LPO rotated COMPARISON: 02/14/2018 FINDINGS: The blank soft tissues are prominent. The lungs are clear, other than evident chronic interstitial lung changes.. The pleural spaces are negative. The cardiac silhouette is only enlarged. The thoracic aorta appears ectatic, prominent than the prior study, but the present film's LPO rotation unwinds the arch of the aorta, making comparison between the present radiograph and the prior radiograph difficult. If there is clinical concern for aortic pa thology, CT with contrast can characterize. The skeletal structures and soft tissues are negative for acute findings. IMPRESSION: Definite acute process, but aortic discussion noted.
[2019-04-16] MEDS ORDERED: NALOXONE 0.4 MG/ML 1 ML VIAL IV PRN (23:34)
[2019-04-16] MEDS ORDERED: BISACODYL 10 MG SUPP RECTAL PRN (23:36)
[2019-04-17] MEDS ORDERED: TOPICAL SKIN ADHESIVE 1 EACH AMP TOPICAL ONE ×2 (00:06→00:15)
[2019-04-17] MEDS: MORPHINE SULFATE 4 MG/ML SYRINGE IV PRN ×6 (01:33→22:44)
[2019-04-17] MEDS ORDERED: ACETAMINOPHEN TAB 325 MG TAB PO PRN (03:15)
[2019-04-17 03:19] LABS: Appearance,Urine Clear (Clear); Bilirubin,Urine Negative (Negative); Blood,Urine Negative (Negative); Color,Urine Yellow; Glucose,Urine (UA) Negative (Negative); Ketones,Urine Negative (Negative); Leukocyte Esterase,Urine Negative (Negative); Nitrite,Urine Negative (Negative); PH, Urine 7.5 (5.0-8.0); Protein,Urine Trace (Negative); Specific Gravity,Urine 1.014 (1.001-1.035); Urobilinogen,Urine <2.0 mg/dL (<2.0)
[2019-04-17] MEDS: FERROUS SULFATE 325 MG TAB PO SCH (03:39)
[2019-04-17] MEDS: VERAPAMIL SR 240 MG TABLET.ER PO SCH (03:39)
[2019-04-17] MEDS: SODIUM CHLORIDE 0.9% 1,000 ML IV SCH ×2 (03:39→22:44)
[2019-04-17] MEDS: FLUTICASONE 220 MCG INHALER INHALATION SCH ×2 (07:08→20:12)
[2019-04-17 08:19] LABS: African American GFR (CKD) >90 (>60 ml/min/1.73 sqM); Anion Gap 10 mmol/L; Blood Urea Nitrogen 15 mg/dL (7-17); Calcium 9.4 mg/dL (8.4-10.2); Carbon Dioxide 24 mmol/L (22-30); Chloride 104 mmol/L (98-107); Glucose 105 mg/dL (74-99); Potassium 4.2 mmol/L (3.5-5.1); Sodium 138 mmol/L (137-145)
[2019-04-17] MEDS: FAMOTIDINE 20 MG TAB PO SCH ×2 (08:33→18:09)
[2019-04-17] MEDS: LEVOTHYROXINE 50 MCG TAB PO SCH (08:33)
[2019-04-17] MEDS: POLYETHYLENE GLYCOL 3350 17 GM POWD.PACK PO SCH (08:34)
[2019-04-17] MEDS: POTASSIUM CHLORIDE ER 10 MEQ TAB.ER.PRT PO SCH ×2 (08:34→18:09)
[2019-04-17] MEDS: CITALOPRAM HYDROBROMIDE 10 MG TAB PO SCH (08:34)
--- NOTE | 2019-04-17 08:34 | P.HPOR ---
History of Present Illness H&P Date: 04/17/19 Chief Complaint: Left hip fracture, left wrist fracture This is an 78-year-old female who was admitted through the emergency department last evening after falling and sustaining injury to her left wrist and left hip. She resides at [facility] on the [address] and apparently took a fall last evening. On exam and x-ray in the emergency department she is found to have a displaced i ntertrochanteric fracture of the left hip as well as a minimally displaced distal radius fracture of the left wrist. She is admitted to our service for surgical intervention and care. The patient is a poor historian. There is a sitter at bedside. Past Medical History Past Medical History: Dementia Additional Past Medical History / Comment(s): Ventricular arrhythmia, ulcerative colitis, IBS, diverticular disease, ischemic bowel treated with antibiotics, hemorrhoids, scoliosis, back pain, Raynaulds bilaterally, osteoporosis, hyp othyroid, statins-elevated LFT, sinus problems. History of Any Multi-Drug Resistant Organisms: None Reported Past Surgical History: Appendectomy, Breast Surgery, Cholecystectomy, Hysterectomy, Joint Replacement, Tonsillectomy Additional Past Surgical History / Comment(s): Bilateral total knee arthroplasty, hilda cataracts/lens implants, bilateral breast biopsies-benign, colonoscopies, pain injections. Past Anesthesia/Blood Transfusion Reactions: No Reported Reaction Past Psychological History: Anxiety Smoking Status: Never smoker Past Alcohol Use History: None Reported Past Drug Use History: None Reported - Past Family History Mother Family Medical History: No Reported History Additional Family Medical History / Comment(s): Mother was obese and an alcoholic Father Additional Family Medical History / Comment(s): Father was an alcoholic. Medications and Allergies Home Medications Medication Instructions Recorded Confirmed Type Albuterol Sulfate [Ventolin HFA] 1 - 2 puff INHALATION RT-QID PRN 05/17/14 04/16/19 History Beclomethasone Dipropionate [Qvar 2 puff INHALATION RT-BID@0700,189905/17/14 04/16/19 History 80 mcg/puff] Levothyroxine Sodium [Synthroid] 175 mcg PO DAILY@0705/17/14 04/16/19 History Ranitidine HCl 150 mg PO BID@0700,19003/08/17 04/16/19 History Cholecalciferol (Vitamin D3) 2,000 unit PO DAILY@0731/18 07/31/19 History [Vitamin D3] Verapamil Sr [Isoptin Sr] 240 mg PO DAILY@69902/14/18 04/16/19 History Ondansetron HCl [Zofran] 4 - 8 mg PO Q12H PRN 11/25/18 04/16/19 History Bisacodyl [Dulcolax] 10 mg RECTAL DAILY PRN 12/10/18 04/16/19 History Balsalazide Disodium [Colazal] 2,250 mg PO TID@0700,1400,1900 04/16/19 04/16/19 History Citalopram Hydrobromide 5 mg PO DAILY@69904/16/19 04/16/19 History [Citalopram HBr] Ferrous Sulfate [Feosol] 325 mg PO Q48H 04/16/19 04/16/19 History HYDROcodone/APAP 10-325MG [[place] 1 tab PO TID@0700,1400,1900 04/16/19 04/16/19 History 10-325] LORazepam [Ativan] 1 mg PO TID PRN 04/16/19 04/16/19 History Melatonin 3 mg PO HS@1900 PRN 04/16/19 04/16/19 History Polyethylene Glycol 3350 [Miralax] 17 gram PO DAILY@69904/16/19 04/16/19 History Potassium Chloride ER [K-Dur 10] 10 meq PO BID@0700,1900 04/16/19 04/16/19 History busPIRone HCL 15 mg PO TID@0700,1400,1900 04/16/19 04/16/19 History traZODone HCL [TraZODone HCl] 50 mg PO HS@1900 04/16/19 04/16/19 History Allergies Allergy/AdvReac Type Severity Reaction Status Date / Time Sulfa (Sulfonamide Allergy Severe Rash/Hives Verified 04/16/19 20:06 Antibiotics) PRIYA Inhibitors Allergy Unknown Verified 04/16/19 20:06 atorvastatin calcium Allergy Swelling Verified 04/16/19 20:06 [From Lipitor] atropine sulfate Allergy Unknown Verified 04/16/19 20:06 [From Lomotil] Cephalosporins Allergy Unknown Verified 04/16/19 20:06 dicyclomine HCl [From Bentyl] Allergy Nausea Verified 04/16/19 20:06 diphenoxylate HCl Allergy Unknown Verified 04/16/19 20:06 [From Lomotil] propoxyphene napsylate Allergy Unknown Verified 04/16/19 20:06 [From Darvocet-N 100] Fxvzhjv-Kop-Fys Reductase Allergy muscle pain Verified 04/16/19 20:06 Inhibitor lopidimine Allergy Unknown Uncoded 04/16/19 20:06 Physical Examination This is an 78-year-old female in no acute distress. She is alert with confusion. She states that she remembers falling but does not recall the details of her fall. Exam of the head and neck reveal no obvious deformity. There is a small laceration about the left tenriism. She has fairly good cervical spine motion without difficulty or pain. Exam of the upper extremities reveals a splint and sling in place to the left arm. There is pain with any motion of the fingers. There is minimal swelling to the fingers. Capillary refill is less than 3 seconds. Exam of the lower extremities reveals shortening and external rotation of the left leg. There is a scar about the midline of her left knee. She is able to wiggle toes on command. Pedal pulse is +1/4. Neurovascular status to the lower extremities is intact. Results X-rays of the left hip and pelvis reveal a displaced intertrochanteric fracture of the left hip. X-rays of the left wrist reveal a minimally displaced, slightly impacted distal radius fracture. - Labs Labs: Abnormal Lab Results - Last 24 Hours (Table) 04/16/19 04/16/19 04/17/19 Range/Units 20:30 21:30 02:59 WBC 14.6 H (3.8-10.6) k/uL Hgb 10.9 L (11.4-16.0) gm/dL RDW 17.4 H (11.5-15.5) % Neutrophils # 11.9 H (1.3-7.7) k/uL Sodium 135 L (137-145) mmol/L Carbon Dioxide 21 L (22-30) mmol/L BUN 19 H (7-17) mg/dL Glucose 104 H (74-99) mg/dL Urine Protein Trace H (Negative) 04/17/19 Range/Units 07:08 WBC (3.8-10.6) k/uL Hgb (11.4-16.0) gm/dL RDW (11.5-15.5) % Neutrophils # (1.3-7.7) k/uL Sodium (137-145) mmol/L Carbon Dioxide (22-30) mmol/L BUN (7-17) mg/dL Glucose 105 H (74-99) mg/dL Urine Protein (Negative) H & H 04/16/19 Range/Units 21:30 Hgb 10.9 L (11.4-16.0) gm/dL Hct 34.3 (34.0-46.0) % Coagulation 04/16/19 Range/Units 21:30 INR 1.1 (<1.2) Result Diagrams: 04/16/19 21:30 04/17/19 07:08 Assessment and Plan (1) Intertrochanteric fracture of left hip Current Visit: Yes Status: Acute Code(s): S72.142A - DISPLACED INTERTROCHANTERIC FRACTURE OF LEFT FEMUR, INIT SNOMED Code(s): 756138655 (2) Blunt head trauma Current Visit: Yes Status: Acute Code(s): S09.8XXA - OTHER SPECIFIED INJURIES OF HEAD, INITIAL ENCOUNTER SNOMED Code(s): 75847824 (3) Closed left radial fracture Current Visit: Yes Status: Acute Code(s): S52.92XA - UNSP FRACTURE OF LEFT FOREARM, INIT FOR CLOS FX SNOMED Code(s): 187327889 (4) Fall Current Visit: Yes Status: Acute Code(s): W19.XXXA - UNSPECIFIED FALL, I NITIAL ENCOUNTER SNOMED Code(s): 2921542 Plan: The clinical and x-ray findings are discussed with the patient and the sitter. It is recommended she undergo closed reduction with insertion of intertrochanteric nail of the left hip. The procedures been discussed in detail including the possible risks and outcomes of surgery. We will attempt to contact family for consent. We are planning surgery for tomorrow if cleared medically.
[2019-04-17] MEDS: busPIRone HCl 5 MG TAB PO SCH ×3 (08:35→18:10)
[2019-04-17] MEDS: BALSALAZIDE DISODIUM 750 MG CAPSULE PO SCH ×3 (08:35→18:10)
[2019-04-17 08:57] LABS: Anisocytosis Slight; Basophils % (A) 0 %; Eosinophils # (A) 0.1 k/uL (0-0.7); Eosinophils % (A) 1 %; HGB 10.5 gm/dL (11.4-16.0); Hypochromasia Moderate; Lymphocytes # (A) 1.3 k/uL (1.0-4.8); Lymphocytes % (A) 15 %; MCHC 30.9 g/dL (31.0-37.0); Mean Platelet Volume 8.5; Monocytes # (A) 0.7 k/uL (0-1.0); Monocytes % (A) 8 %; Neutrophils # (A) 6.5 k/uL (1.3-7.7); Neutrophils % (A) 75 %; Platelet Count 184 k/uL (150-450); RBC 3.89 m/uL (3.80-5.40); RDW 17.5 % (11.5-15.5); WBC 8.7 k/uL (3.8-10.6)
[2019-04-17 09:16] LABS: MCV 87.5 fL (80.0-100.0)
[2019-04-17] MEDS ORDERED: HYDROmorphone 0.5 MG/0.5 ML SYRINGE IVP PRN (11:45)
--- NOTE | 2019-04-17 13:06 | P.CONS ---
History of Present Illness - Reason for Consult Consult date: 04/17/19 Medical management Requesting physician: Reuben Lebron - Chief Complaint Fall with fracture - History of Present Illness Consultation: This is a very pleasant 78-year-old patient who follows with Dr. Daly. Currently a resident of [facility]. Chronic stable medical conditions include asthma, GERD, hyperlipidemia, hypertension, osteoarthritis, hypothyroid, diverticulosis, hemorrhoids, scoliosis, chronic low back pain and ulcerative colitis. Patient took a fall the [facility] on the left side. As a result patient has a left femur neck fracture and left distal radius fracture. Patient also some blunt injury to the left side of the face. Does do fracture there. Left arm is in a support wrap. Seen by orthopedics. Planning to go down for surgery tomorrow. Family the beds kasey. No chest pain or shortness of breath. Review of systems: GEN.: Tired EYES: None HEENT: None NECK: None RESPIRATORY: None CARDIOVASCULAR: None GASTROINTESTINAL: None GENITOURINARY: None MUSCULOSKELETAL: Pain in multiple joints LYMPHATICS: None HEMATOLOGICAL: None PSYCHIATRY: But anxious NEUROLOGICAL: None Past medical history: Asthma, GERD, hypertension, hyperlipidemia, osteoarthritis, hypothyroid, ulcerative colitis, diverticulosis, hemorrhoids, scoliosis, Past psychiatric history: Anxiety Social history: No smoking, no alcohol, resident of [facility] Family history: Mother was alcoholic Physical examination: VITAL SIGNS: 99.8, 85, 17, 114/66, 99% on 2 L GENERAL: BMI 25.8, laying in bed a bit uncomfortable. EYES: Pupils equal. Conjunctiva normal. HEENT: External appearance of nose and ears normal, oral cavity grossly normal, slight bruising of the left lateral forehead. NECK: JVD not raised; masses not palpable. HEART: First and second heart sounds are normal; no edema. LUNGS: Respiratory rate normal; clear to auscultation. ABDOMEN: Soft, nontender, liver spleen not palpable, no masses palpable. PSYCH: Alert and oriented x3; mood and affect normal. NEUROLOGICAL: Cranial nerves grossly intact; no facial asymmetry, power and sensation grossly intact. LYMPHATICS: No lymph nodes palpable in the axilla and neck MUSCULOSKELETAL: Limited range of motion of the left hip. Left forearm arm in a support bandage INVESTIGATIONS, reviewed in the clinical context: White count 8.7 hemoglobin 10.5 platelets 184 potassium 4.2 creatinine 0.68 Chest x-ray film personally reviewed by me shows, some unfolding of the aorta EKG tracing personally reviewed by me shows sinus tachycardia Head CT and neck CT negative for fracture. X-ray of the left hip shows left femur neck fracture and x-ray of the left forearm shows left radius fracture Assessment: -Acute left femoral neck fracture and left wrist distal radius fracture secondary to fall -Mild persistent asthma -GERD -Essential hypertension -Hyperlipidemia -Primary osteoarthritis -Hypothyroid -Colonic diverticulosis -Chronic scoliosis Plan: Because of patient's comorbidities and limited excess tolerance patient is a low moderate risk from cardiovascular surgery standpoint. There are no absolute contraindications. This was discussed with the family the bedside. Home medications are to be resumed. Blood pressures come down. That was higher when she had come in likely from not taking her medications. Thank you Dr. Lebron Past Medical History Past Medical History: Dementia Additional Past Medical History / Comment(s): Ventricular arrhythmia, ulcerative colitis, IBS, diverticular disease, ischemic bowel treated with antibiotics, hemorrhoids, scoliosis, back pain, Raynaulds bilaterally, osteoporosis, hypothyroid, statins-elevated LFT, sinus problems. History of Any Multi-Drug Resistant Organisms: None Reported Past Surgical History: Appendectomy, Breast Surgery, Cholecystectomy, Hysterectomy, Joint Replacement, Tonsillectomy Additional Past Surgical History / Comment(s): Bilateral total knee arthroplasty, hilda cataracts/lens implants, bilateral breast biopsies-benign, colonoscopies, pain injections. Past Anesthesia/Blood Transfusion Reactions: No Reported Reaction Past Psychological History: Anxiety Smoking Status: Never smoker Past Alcohol Use History: None Reported Past Drug Use History: None Reported - Past Family History Mother Family Medical History: No Reported History Additional Family Medical History / Comment(s): Mother was obese and an alcoholic Father Additional Family Medical History / Comment(s): Father was an alcoholic. Medications and Allergies Home Medications Medication Instructions Recorded Confirmed Type Albuterol Sulfate [Ventolin HFA] 1 - 2 puff INHALATION RT-QID PRN 05/17/14 04/16/19 History Beclomethasone Dipropionate [Qvar 2 puff INHALATION RT-BID@0700,1900 05/17/14 04/16/19 History 80 mcg/puff] Levothyroxine Sodium [Synthroid] 175 mcg PO DAILY@0700 05/17/14 04/16/19 History Ranitidine HCl 150 mg PO BID@0700,1900 03/08/17 04/16/19 History Cholecalciferol (Vitamin D3) 2,000 unit PO DAILY@0700 02/14/18 04/16/19 History [Vitamin D3] Verapamil Sr [Isoptin Sr] 240 mg PO DAILY@0700 02/14/18 04/16/19 History Ondansetron HCl [Zofran] 4 - 8 mg PO Q12H PRN 11/25/18 04/16/19 History Bisacodyl [Dulcolax] 10 mg RECTAL DAILY PRN 12/10/18 04/16/19 History Balsalazide Disodium [Colazal] 2,250 mg PO TID@0700,1400,1900 04/16/19 04/16/19 History Citalopram Hydrobromide 5 mg PO DAILY@0700 04/16/19 04/16/19 History [Citalopram HBr] Ferrous Sulfate [Feosol] 325 mg PO Q48H 04/16/19 04/16/19 History HYDROcodone/APAP 10-325MG [Convoy 1 tab PO TID@0700,1400,1900 04/16/19 04/16/19 History 10-325] LORazepam [Ativan] 1 mg PO TID PRN 04/16/19 04/16/19 History Melatonin 3 mg PO HS@1900 PRN 04/16/19 04/16/19 History Polyethylene Glycol 3350 [Miralax] 17 gram PO DAILY@0700 04/16/19 04/16/19 History Potassium Chloride ER [K-Dur 10] 10 meq PO BID@0700,1900 04/16/19 04/16/19 History busPIRone HCL 15 mg PO TID@0700,1400,1900 04/16/19 04/16/19 History traZODone HCL [TraZODone HCl] 50 mg PO HS@0 04/16/19 04/16/19 History Allergies Allergy/AdvReac Type Severity Reaction Status Date / Time Sulfa (Sulfonamide Allergy Severe Rash/Hives Verified 04/16/19 20:06 Antibiotics) PRIYA Inhibitors Allergy Unknown Verified 04/16/19 20:06 atorvastatin calcium Allergy Swelling Verified 04/16/19 20:06 [From Lipitor] atropine sulfate Allergy Unknown Verified 04/16/19 20:06 [From Lomotil] Cephalosporins Allergy Unknown Verified 04/16/19 20:06 dicyclomine HCl [From Bentyl] Allergy Nausea Verified 04/16/19 20:06 diphenoxylate HCl Allergy Unknown Verified 04/16/19 20:06 [From Lomotil] propoxyphene napsylate Allergy Unknown Verified 04/16/19 20:06 [From Darvocet-N 100] Gfnutxk-Gpy-Xxm Reductase Allergy muscle pain Verified 04/16/19 20:06 Inhibitor lopidimine Allergy Unknown Uncoded 04/16/19 20:06 Physical Exam Vitals: Vital Signs Temp Pulse Pulse Pulse Resp BP BP 04/17/19 11:00 99.8 F H 85 17 114/66 04/17/19 07:35 17 04/17/19 05:00 97.0 F L 118 H 20 203/84 04/17/19 04:57 100 198/82 04/17/19 02:03 101 H 19 206/93 04/17/19 02:01 99.0 F 118 H 16 210/110 04/17/19 01:45 102 H 21 192/91 04/17/19 00:00 167/82 04/16/19 23:08 79 18 169/86 04/16/19 23:00 172/105 04/16/19 22:43 97 22 04/16/19 20:16 166/89 04/16/19 20:02 98.4 F 87 18 187/170 Pulse Ox 04/17/19 11:00 04/17/19 07:35 04/17/19 05:00 99 04/17/19 04:57 04/17/19 02:03 97 04/17/19 02:01 04/17/19 01:45 90 L 04/17/19 00:00 04/16/19 23:08 96 04/16/19 23:00 04/16/19 22:43 99 04/16/19 20:16 04/16/19 20:02 95 Intake and Output 04/16/19 04/17/19 04/17/19 22:59 06:59 14:59 Intake Total 270 Output Total 650 Balance -380 Intake: Intake, IV Titration 150 Amount Sodium Chloride 0.9% 1, 150 000 ml @ 50 mls/hr IV . Q20H [facility] Rx#:[id number] Oral 120 Output: Urine 650 Other: Voiding Method Indwelling Catheter Indwelling Catheter # Voids 1 Weight 72.575 kg Results CBC & Chem 7: 04/17/19 07:08 04/17/19 07:08 Labs: Abnormal Lab Results - Last 24 Hours (Table) 04/16/19 04/16/19 04/17/19 Range/Units 20:30 21:30 02:59 WBC 14.6 H (3.8-10.6) k/uL Hgb 10.9 L (11.4-16.0) gm/dL MCHC (31.0-37.0) g/dL RDW 17.4 H (11.5-15.5) % Neutrophils # 11.9 H (1.3-7.7) k/uL Sodium 135 L (137-145) mmol/L Carbon Dioxide 21 L (22-30) mmol/L BUN 19 H (7-17) mg/dL Glucose 104 H (74-99) mg/dL Urine Protein Trace H (Negative) 04/17/19 04/17/19 Range/Units 07:08 07:08 WBC (3.8-10.6) k/uL Hgb 10.5 L (11.4-16.0) gm/dL MCHC 30.9 L (31.0-37.0) g/dL RDW 17.5 H (11.5-15.5) % Neutrophils # (1.3-7.7) k/uL Sodium (137-145) mmol/L Carbon Dioxide (22-30) mmol/L BUN (7-17) mg/dL Glucose 105 H (74-99) mg/dL Urine Protein (Negative)
[2019-04-17 15:13] VITALS: BMI 25.8
[2019-04-17] MEDS: LACTATED RINGERS 1,000 ML IV SCH (17:23)
[2019-04-17] MEDS ORDERED: MELATONIN 3 MG TABLET PO PRN (19:00)
[2019-04-18] MEDS: MORPHINE SULFATE 4 MG/ML SYRINGE IV PRN ×3 (03:26→12:05)
[2019-04-18] MEDS: POTASSIUM CHLORIDE ER 10 MEQ TAB.ER.PRT PO SCH ×2 (07:57→20:28)
[2019-04-18] MEDS: POLYETHYLENE GLYCOL 3350 17 GM POWD.PACK PO SCH (07:57)
[2019-04-18] MEDS: BALSALAZIDE DISODIUM 750 MG CAPSULE PO SCH ×3 (07:57→20:28)
[2019-04-18] MEDS: VERAPAMIL SR 240 MG TABLET.ER PO SCH (07:59)
[2019-04-18] MEDS: busPIRone HCl 5 MG TAB PO SCH ×3 (07:59→20:28)
[2019-04-18] MEDS: LEVOTHYROXINE 50 MCG TAB PO SCH (07:59)
[2019-04-18] MEDS: LORazepam 1 MG TAB PO PRN ×2 (10:10→20:28)
[2019-04-18] MEDS: FLUTICASONE 220 MCG INHALER INHALATION SCH ×2 (11:00→21:44)
[2019-04-18] MEDS: CITALOPRAM HYDROBROMIDE 10 MG TAB PO SCH (12:06)
[2019-04-18] MEDS: FAMOTIDINE 20 MG TAB PO SCH ×2 (12:06→20:28)
[2019-04-18] MEDS: LACTATED RINGERS 1,000 ML IV SCH ×2 (13:21→13:51)
[2019-04-18] MEDS ORDERED: IV FLUID CONTINUATION 1,000 ML IV ONE (13:22)
[2019-04-18] MEDS ORDERED: MIDAZOLAM 2 MG/2 ML VIAL ONE (13:47)
[2019-04-18] MEDS ORDERED: PHENYLEPHRINE-0.9% NACL SYG 1 MG/10 ML SYRINGE ONE (13:47)
[2019-04-18] MEDS ORDERED: KETAMINE 10 MG/ML 20 ML VIAL ONE (13:47)
[2019-04-18] MEDS ORDERED: fentaNYL (PF) 50 MCG/ML 2 ML AMP ONE (13:47)
[2019-04-18] MEDS ORDERED: CLINDAMYCIN 150 MG/ML 4 ML VIAL IVPB ONE (14:12)
[2019-04-18] MEDS ORDERED: ceFAZolin 1,000 MG in SODIUM CHLORIDE 0.9% 1,000 ML IRRIGATION ONE (14:40)
--- NOTE | 2019-04-18 15:19 | FL ---
EXAMINATION TYPE: FL guidance operating room DATE OF EXAM: 04/18/2019 HISTORY: Flouroscopy time 55 seconds of fluoroscopy provided. IMPRESSION: 1. Fluoroscopy time.
--- NOTE | 2019-04-18 15:19 | XR ---
EXAMINATION TYPE: XR Hip Complete LT DATE OF EXAM: 04/18/2019 COMPARISON: NONE HISTORY: Postop TECHNIQUE: One view submitted. FINDINGS: There is postsurgical change in near anatomic alignment. There is soft tissue edema and emphysema. IMPRESSION: 1. Postoperative change. Appears in near-anatomic alignment.
[2019-04-18] MEDS ORDERED: HYDROcodone/APAP 5-325MG 1 EACH TAB PO PRN (15:31)
[2019-04-18] MEDS ORDERED: HYDROmorphone 0.5 MG/0.5 ML SYRINGE IVP PRN ×2 (15:31)
[2019-04-18] MEDS: HYDROmorphone 0.5 MG/0.5 ML SYRINGE IVP PRN (17:02)
[2019-04-18 19:00] LABS: Anisocytosis Slight; Basophils % (A) 0 %; Eosinophils # (A) 0.1 k/uL (0-0.7); Eosinophils % (A) 1 %; HCT 26.8 % (34.0-46.0); Hypochromasia Marked; Lymphocytes % (A) 8 %; MCH 27.2 pg (25.0-35.0); MCHC 30.6 g/dL (31.0-37.0); Mean Platelet Volume 8.9; Monocytes # (A) 0.4 k/uL (0-1.0); Monocytes % (A) 4 %; Neutrophils % (A) 87 %; Platelet Count 148 k/uL (150-450); RBC 3.01 m/uL (3.80-5.40); RDW 17.4 % (11.5-15.5); WBC 11.5 k/uL (3.8-10.6)
[2019-04-18 19:03] LABS: HGB 8.2 gm/dL (11.4-16.0)
--- NOTE | 2019-04-18 19:24 | P.PN ---
Progress Note - Text Progress Note Date: 04/18/19 - Chief Complaint Fall with fracture Interval history: This is a very pleasant 78-year-old patient who follows with Dr. Daly. Currently a resident of [facility]. Chronic stable medical conditions include asthma, GERD, hyperlipidemia, hypertension, osteoarthritis, hypothyroid, diverticulosis, hemorrhoids, scoliosis, chronic low back pain and ulcerative colitis. Patient took a fall the [facility] on the left side. As a result patient has a left femur neck fracture and left distal radius fracture. Patient also some blunt injury to the left side of the face. Today-saw this patient earlier today. Pending surgery. Tired. Daughter the bedside. No new issues. Review of systems: Was done for constitutional, cardiovascular, GI, pulmonary. relevant finding as above Current medications reviewed from today's electronic records Physical examination: VITAL SIGNS: 99.6, 95, 16, 146/73, 97% on room air GENERAL: Laying in bed, tired EYES: Pupils equal. Conjunctiva normal. HEENT: External appearance of nose and ears normal, oral cavity grossly normal, slight bruising of the left lateral forehead. NECK: JVD not raised; masses not palpable. HEART: First and second heart sounds are normal; no edema. LUNGS: Respiratory rate normal; clear to auscultation. ABDOMEN: Soft, nontender, liver spleen not palpable, no masses palpable. PSYCH: Alert and oriented x3; mood and affect normal. MUSCULOSKELETAL: Limited range of motion of the left hip. Left forearm arm in a support bandage INVESTIGATIONS, reviewed in the clinical context: White count 11.5, hemoglobin 8.2, platelets 148 Previously reviewed Chest x-ray film personally reviewed by me shows, some unfolding of the aorta EKG tracing personally reviewed by me shows sinus tachycardia Head CT and neck CT negative for fracture. X-ray of the left hip shows left femur neck fracture and x-ray of the left forearm shows left radius fracture Assessment: -Acute left femoral neck fracture and left wrist distal radius fracture secondary to fall -Mild persistent asthma -GERD -Essential hypertension -Hyperlipidemia -Primary osteoarthritis -Hypothyroid -Colonic diverticulosis -Chronic scoliosis Plan: Care was discussed with the with the patient daughter the bedside. No new i ssues. Awaiting surgery. Scheduled for later this afternoon. Late in the day patient did undergo closed reduction and IM nailing Thank you Dr. Lebron
[2019-04-18] MEDS: CLINDAMYCIN 900 MG in DEXTROSE 5% IN WATER 50 ML IVPB SCH ×4 (19:55→23:36)
[2019-04-18] MEDS: SODIUM CHLORIDE 0.9% 1,000 ML IV SCH (20:29)
[2019-04-18] MEDS: FERROUS SULFATE 325 MG TAB PO SCH (23:36)
[2019-04-19] MEDS: FLUTICASONE 220 MCG INHALER INHALATION SCH ×2 (07:45→20:42)
[2019-04-19] MEDS: ENOXAPARIN 40 MG/0.4 ML SYRINGE SQ SCH (07:57)
[2019-04-19] MEDS: BALSALAZIDE DISODIUM 750 MG CAPSULE PO SCH ×3 (07:58→18:14)
[2019-04-19] MEDS: POTASSIUM CHLORIDE ER 10 MEQ TAB.ER.PRT PO SCH ×2 (07:58→18:15)
[2019-04-19] MEDS: LEVOTHYROXINE 50 MCG TAB PO SCH (07:58)
[2019-04-19] MEDS: FAMOTIDINE 20 MG TAB PO SCH ×2 (07:58→18:15)
[2019-04-19] MEDS: busPIRone HCl 5 MG TAB PO SCH ×3 (07:59→18:14)
[2019-04-19] MEDS: POLYETHYLENE GLYCOL 3350 17 GM POWD.PACK PO SCH (08:00)
[2019-04-19] MEDS: VERAPAMIL SR 240 MG TABLET.ER PO SCH (08:00)
[2019-04-19] MEDS: CITALOPRAM HYDROBROMIDE 10 MG TAB PO SCH (08:00)
--- NOTE | 2019-04-19 09:16 | P.PN ---
Subjective Progress Note Date: 04/19/19 Principal diagnosis: Status post left hip IT nail This is an 78 year-old female post left hip IT nail. This is post-op day 1. The patient was evaluated at the bedside today. She also has a splint on the left forearm. The patient denies nausea, vomiting, abdominal pain, shortness of breath, and chest pain this morning. She states her pain is controlled at this time but is very confused. The patient has not been up with physical therapy. Objective - Vital Signs Vital signs: Vital Signs Temp 98.2 F 04/19/19 07:00 Pulse 111 H 04/19/19 07:00 Resp 17 04/19/19 07:00 BP 128/74 04/19/19 07:00 Pulse Ox 98 04/19/19 07:00 Intake & Output 04/18/19 04/19/19 04/19/19 18:59 06:59 18:59 Intake Total 1621 Output Total 100 1100 Balance 1521 -1100 Intake: IV 1101 Intake, IV Titration 350 Amount Sodium Chloride 0.9% 1, 350 000 ml @ 50 mls/hr IV . Q20H [facility] Rx#:[id number] Oral 170 Output: Urine 50 1100 Uretheral (Velazquez) 550 Estimated Blood Loss 50 Other: Voiding Method Indwelling Catheter Indwelling Catheter - Exam The patient does not appear in acute distress. Alert and orientated x1. Dressing is clean dry and intact. Incision appears fine with no erythema or active drainage. Calf is soft and nontender. Good foot and ankle motion without difficulty. Splint to the left upper extremity is clean dry and intact. She is able to wiggle her fingers. Sensation and circulatory status is intact. - Labs CBC & Chem 7: 04/18/19 18:47 04/17/19 07:08 Labs: Abnormal Lab Results - Last 24 Hours (Table) 04/18/19 Range/Units 18:47 WBC 11.5 H (3.8-10.6) k/uL RBC 3.01 L (3.80-5.40) m/uL Hgb 8.2 L D (11.4-16.0) gm/dL Hct 26.8 L (34.0-46.0) % MCHC 30.6 L (31.0-37.0) g/dL RDW 17.4 H (11.5-15.5) % Plt Count 148 L (150-450) k/uL Neutrophils # 10.0 H (1.3-7.7) k/uL Assessment and Plan (1) Status post hip surgery Current Visit: Yes Status: Acute Code(s): Z98.890 - OTHER SPECIFIED POSTPROCEDURAL STATES SNOMED Code(s): 394017212 (2) Closed left radial fracture Current Visit: Yes Status: Acute Code(s): S52.92XA - UNSP FRACTURE OF LEFT FOREARM, INIT FOR CLOS FX SNOMED Code(s): 819649488 (3) Fall Current Visit: Yes Status: Acute Code(s): W19.XXXA - UNSPECIFIED FALL, INITIAL ENCOUNTER SNOMED Code(s): 7105374 (4) Intertrochanteric fracture of left hip Current Visit: Yes Status: Acute Code(s): S72.142A - DISPLACED INTERTROCHANTERIC FRACTURE OF LEFT FEMUR, INIT SNOMED Code(s): 040397448 Plan: 1. Continue pain control 2. Anticoagulation with Lovenox 3. Start physical therapy and ambulation, non-weightbearing to the left upper and lower extremities 4. Anticipate discharge back to [facility] when orthopedically and medically stable.
[2019-04-19] MEDS: HYDROmorphone 0.5 MG/0.5 ML SYRINGE IVP PRN (10:50)
[2019-04-19] MEDS: LORazepam 1 MG TAB PO PRN (10:50)
[2019-04-19] MEDS: HYDROcodone/APAP 10-325MG 1 EACH TAB PO SCH ×2 (14:14→18:15)
--- NOTE | 2019-04-19 14:21 | US ---
EXAMINATION TYPE: US venous doppler duplex LE DATE OF EXAM: 04/19/2019 2:04 PM COMPARISON: NONE CLINICAL HISTORY: edema. Left hip surgery 1 day ago SIDE PERFORMED: Bilateral TECHNIQUE: The lower extremity deep venous system is examined utilizing real time linear array sonog ousmane with graded compression, doppler sonography and color-flow sonography. VESSELS IMAGED: External Iliac Vein (EIV) Common Femoral Vein Deep Femoral Vein Greater Saphenous Vein * Femoral Vein Popliteal Vein Small Saphenous Vein * Proximal Calf Veins (* superficial vessels) Right Leg: Negative for DVT Left Leg: Negative for DVT No popliteal fossa lesion is seen. IMPRESSION: THIS EXAMINATION IS NEGATIVE FOR DVT IN BOTH LEGS.
--- NOTE | 2019-04-19 15:07 | XR ---
EXAMINATION TYPE: XR chest 1V portable DATE OF EXAM: 04/19/2019 CLINICAL HISTORY: Difficulty breathing progress study. TECHNIQUE: Single AP frontal view of the chest is obtained. COMPARISON: Chest x-ray from April 16, 2019 FINDINGS: Chronic parenchymal change bilaterally is redemonstrated without suspicious new focal airs pace opacity, pleural effusion, or pneumothorax seen. Overlying EKG leads are now present. Cardiac si lhouette size remains within normal limits. Osseous structures remain demineralized. IMPRESSION: Overall stable findings, chronic parenchymal changes without acute pulmonary process
--- NOTE | 2019-04-19 15:09 | XR ---
EXAMINATION TYPE: XR lumbar spine 2 or 3V DATE OF EXAM: 04/19/2019 CLINICAL HISTORY: Low back pain. History of falls and compression fracture TECHNIQUE: Frontal, lateral, and oblique images of the lumbar spine are obtained. COMPARISON: Outside lumbar spine x-ray April 08, 2018 FINDINGS: Exam is markedly suboptimal due to portable technique with overlying clothing material pres ent. In addition demineralization is identified making evaluation suboptimal. There are multiple comp ression type fracture throughout the lumbar spine redemonstrated most prominent near the thoracolumba r junction but involvement through mid lumbar spine is felt present. Fractures presumed chronic as si milar fractures noted on outside study with improved technique. Overlying vascular calcification is p resent. IMPRESSION: As above, almost nondiagnostic study.
--- NOTE | 2019-04-19 15:44 | P.PN ---
Subjective Progress Note Date: 04/19/19 (Delayed charting patient seen 11:30) Principal diagnosis: Hip pain Dr. Camp initially medical consultation however family requested an alternative physician. Patient is an 78-year-old female who currently resides at a foster care due to her dementia with a history of ulcerative colitis, irritable bowel syndrome, and ischemic bowel who presented to the ER after a fall with left hip and wrist pain. In the ER she underwent an extensive evaluation. She was found to have a left intertrochanteric hip fracture and a distal radial fracture of the left wrist. She was subsequently admitted to orthopedic surgery. On 04/18 she underwent left IT nailing and splint was placed on the left wrist. She is nonweightbearing. She has had worsening pain and confusion since OR. She did have minimal fevers on 04/17 and 04/18 with a T-max of 100.9. Chest x-ray, lower extremity venous Dopplers ordered. Urinalysis has been negative. Patient seen and examined at bedside. She is very sleepy. She denies any pain or anxiety. Multiple family members present stating she had increased anxiety and pain this morning prior to receiving Dilaudid and Ativan. Objective - Vital Signs Vital signs: Vital Signs Temp 97.4 F L 04/19/19 14:49 Pulse 111 H 04/19/19 14:49 Resp 15 04/19/19 14:49 BP 136/83 04/19/19 14:49 Pulse Ox 99 04/19/19 14:49 Intake & Output 04/18/19 04/19/19 04/19/19 18:59 06:59 18:59 Intake Total 1621 754 Output Total 100 1100 Balance 1521 -1100 754 Intake: IV 1101 400 Sodium Chloride 0.9% 1, 400 000 ml @ 50 mls/hr IV . Q20H [facility] Rx#:[id number] Intake, IV Titration 350 Amount Sodium Chloride 0.9% 1, 350 000 ml @ 50 mls/hr IV . Q20H [facility] Rx#:[id number] Oral 170 354 Output: Urine 50 1100 Uretheral (Velazquez) 550 Estimated Blood Loss 50 Other: Voiding Method Indwelling Catheter Indwelling Catheter Indwelling Catheter - Exam General: non toxic, no distress, appears at stated age Derm: warm, dry Head: atraumatic, normocephalic, symmetric Eyes: EOMI, no lid lag, anicteric sclera Mouth: no lip lesion, mucus membranes moist Cardiovascular: S1S2 reg, no murmur, positive posterior tibial pulse bilateral, Lungs: Decreased breath sounds bilateral, no rhonchi, no rales , no accessory muscle use Abdominal: soft, nontender to palpation, no guarding, no appreciable organomegaly Ext: Left wrist with splint and sling in place, no gross muscle atrophy, trace edema, no contractures Neuro: CN II-XI grossly intact, no focal neuro deficits Psych: Alert to self, lethargic - Labs CBC & Chem 7: 04/18/19 18:47 04/17/19 07:08 Labs: Abnormal Lab Results - Last 24 Hours (Table) 04/18/19 Range/Units 18:47 WBC 11.5 H (3.8-10.6) k/uL RBC 3.01 L (3.80-5.40) m/uL Hgb 8.2 L D (11.4-16.0) gm/dL Hct 26.8 L (34.0-46.0) % MCHC 30.6 L (31.0-37.0) g/dL RDW 17.4 H (11.5-15.5) % Plt Count 148 L (150-450) k/uL Neutrophils # 10.0 H (1.3-7.7) k/uL Assessment and Plan Assessment: Fevers, postoperative and preoperative -Urinalysis was negative on admission -Chest x-ray was checked and is negative -Lower extremity venous Dopplers checked and were negative Acute on chronic low back pain -Lumbar spine x-ray read demonstrates a known compression fractures -Pain control -PT/OT evaluation Left intertrochanteric hip fracture as well as left radial wrist fracture -Postoperative pain control. Will resume patient's home [place] 10/325 which she typically takes scheduled 3 times a day and we'll increase it to scheduled 4 times a day -Dilaudid for breakthrough pain -Per family Dr. Lebron has recommended patient use a wheelchair for the next month -PT/OT eval -Fall precautions Acute blood loss anemia, postoperative and expected -Follow CBC -No indication for transfusion -If continues to downtrend could consider iron studies, patient already takes ferrous sulfate Dementia with behavioral disturbances -Safe and supportive environment -Continue with BuSpar, Celexa HX of ventricular arrhythmia - verapamil Chronic: Ventricular arrhythmia Ulcerative colitis Irritable bowel syndrome Hemorrhoids Scoliosis Hypothyroidism DVT prophylaxis: Lovenox Discussed with: Patient, family, nursing Anticipated discharge: 1-[address]: home A total of 35 minutes was spent on the care of this complex patient more than 50% of the time was spent in counseling and care coordination.
[2019-04-19] MEDS: SODIUM CHLORIDE 0.9% 1,000 ML IV SCH ×2 (16:24→21:11)
[2019-04-20] MEDS: HYDROcodone/APAP 10-325MG 1 EACH TAB PO SCH ×4 (00:31→18:05)
[2019-04-20] MEDS: FLUTICASONE 220 MCG INHALER INHALATION SCH ×2 (07:20→21:14)
[2019-04-20] MEDS: CITALOPRAM HYDROBROMIDE 10 MG TAB PO SCH (08:20)
[2019-04-20] MEDS: POTASSIUM CHLORIDE ER 10 MEQ TAB.ER.PRT PO SCH ×2 (08:20→18:06)
[2019-04-20] MEDS: BALSALAZIDE DISODIUM 750 MG CAPSULE PO SCH ×3 (08:20→18:05)
[2019-04-20] MEDS: FAMOTIDINE 20 MG TAB PO SCH ×2 (08:20→18:05)
[2019-04-20] MEDS: VERAPAMIL SR 240 MG TABLET.ER PO SCH (08:20)
[2019-04-20] MEDS: busPIRone HCl 5 MG TAB PO SCH ×3 (08:21→18:05)
[2019-04-20] MEDS: LEVOTHYROXINE 50 MCG TAB PO SCH (08:21)
[2019-04-20] MEDS: POLYETHYLENE GLYCOL 3350 17 GM POWD.PACK PO SCH (08:22)
[2019-04-20] MEDS: ENOXAPARIN 40 MG/0.4 ML SYRINGE SQ SCH (08:22)
--- NOTE | 2019-04-20 08:57 | P.PN ---
Subjective Progress Note Date: 04/20/19 Principal diagnosis: Status post left hip IT nail This is an 78 year-old female post left hip IT nail. This is post-op day 2. The patient was evaluated at the bedside today. She also has a splint on the left forearm. The patient denies nausea, vomiting, abdominal pain, shortness of breath, and chest pain this morning. She states her pain is controlled at this time but is very confused. No new complaints today. Objective - Vital Signs Vital signs: Vital Signs Temp 98.5 F 04/20/19 07:00 Pulse 93 04/20/19 07:00 Resp 15 04/20/19 07:00 BP 145/79 04/20/19 07:00 Pulse Ox 98 04/20/19 08:38 Intake & Output 04/19/19 04/20/19 04/20/19 18:59 06:59 18:59 Intake Total 879 Output Total 400 Balance 879 -400 Intake: IV 400 Sodium Chloride 0.9% 1, 400 000 ml @ 50 mls/hr IV . Q20H [facility] Rx#:[id number] Oral 479 Output: Urine 400 Other: Voiding Method Indwelling Catheter Indwelling Catheter - Exam The patient does not appear in acute distress. Alert and orientated x1. Dressing is clean dry and intact. Incision appears fine with no erythema or active drainage. Calf is soft and nontender. Good foot and ankle motion withou t difficulty. Splint to the left upper extremity is clean dry and intact. She is able to wiggle her fingers. Sensation and circulatory status is intact. - Labs CBC & Chem 7: 04/18/19 18:47 04/17/19 07:08 Assessment and Plan (1) Status post hip surgery Current Visit: Yes Status: Acute Code(s): Z98.890 - OTHER SPECIFIED POSTPROCEDURAL STATES SNOMED Code(s): 230984697 (2) Closed left radial fracture Current Visit: Yes Status: Acute Code(s): S52.92XA - UNSP FRACTURE OF LEFT FOREARM, INIT FOR CLOS FX SNOMED Code(s): 514109716 (3) Fall Current Visit: Yes Status: Acute Code(s): W19.XXXA - UNSPECIFIED FALL, INITIAL ENCOUNTER SNOMED Code(s): 8133569 (4) Intertrochanteric fracture of left hip Current Visit: Yes Status: Acute Code(s): S72.142A - DISPLACED INTERTRO CHANTERIC FRACTURE OF LEFT FEMUR, INIT SNOMED Code(s): 771744256 Plan: 1. Continue pain control 2. Anticoagulation with Lovenox 3. Continue physical therapy and ambulation, non-weightbearing to the left lower extremity. May use platform walker. 4. Anticipate discharge back to [facility] when medically stable.
[2019-04-20 10:22] LABS: ALT 22 U/L (9-52); AST 25 U/L (14-36); African American GFR (CKD) >90 (>60 ml/min/1.73 sqM); Albumin 2.6 g/dL (3.5-5.0); Alkaline Phosphatase 48 U/L (38-126); Anion Gap 8 mmol/L; Blood Urea Nitrogen 22 mg/dL (7-17); Calcium 8.6 mg/dL (8.4-10.2); Carbon Dioxide 25 mmol/L (22-30); Chloride 102 mmol/L (98-107); Glucose 108 mg/dL (74-99); Potassium 4.7 mmol/L (3.5-5.1); Sodium 135 mmol/L (137-145); Total Bilirubin 0.6 mg/dL (0.2-1.3); Total Protein 5.2 g/dL (6.3-8.2)
[2019-04-20 10:30] LABS: Anisocytosis Slight; Basophils % (A) 0 %; Eosinophils # (A) 0.2 k/uL (0-0.7); Eosinophils % (A) 2 %; HCT 24.1 % (34.0-46.0); HGB 7.3 gm/dL (11.4-16.0); Hypochromasia Marked; Lymphocytes % (A) 11 %; MCH 27.4 pg (25.0-35.0); MCHC 30.3 g/dL (31.0-37.0); MCV 90.7 fL (80.0-100.0); Mean Platelet Volume 8.6; Monocytes # (A) 0.7 k/uL (0-1.0); Monocytes % (A) 7 %; Neutrophils # (A) 7.2 k/uL (1.3-7.7); Neutrophils % (A) 79 %; Platelet Count 197 k/uL (150-450); RBC 2.65 m/uL (3.80-5.40); RDW 17.9 % (11.5-15.5); WBC 9.2 k/uL (3.8-10.6)
[2019-04-20 15:24] LABS: Anisocytosis Slight; Basophils % (A) 0 %; Eosinophils # (A) 0.2 k/uL (0-0.7); Eosinophils % (A) 3 %; HCT 21.9 % (34.0-46.0); Hypochromasia Slight; Lymphocytes # (A) 1.3 k/uL (1.0-4.8); Lymphocytes % (A) 14 %; MCH 27.5 pg (25.0-35.0); MCHC 32.1 g/dL (31.0-37.0); Mean Platelet Volume 8.9; Monocytes # (A) 0.6 k/uL (0-1.0); Monocytes % (A) 6 %; Neutrophils # (A) 6.9 k/uL (1.3-7.7); Neutrophils % (A) 75 %; Platelet Count 205 k/uL (150-450); RBC 2.56 m/uL (3.80-5.40); RDW 18.3 % (11.5-15.5); WBC 9.2 k/uL (3.8-10.6)
[2019-04-20 15:31] VITALS: RESP 16
[2019-04-20 15:31] LABS: MCV 85.6 fL (80.0-100.0)
--- NOTE | 2019-04-20 15:33 | P.PN ---
Subjective Progress Note Date: 04/20/19 Patient is pleasantly confused and states that her left wrist is hurting. When she talks about her and their talks about that as he is somewhere around in the room and she is talking at times to him and talking to this story writer. Nurses reported no current issues or active issues with her. It was noted the patient hemoglobin has dropped from 10+ g to 7.3 g Postoperatively. Her maximum temperature was 97.2F in the past 24 hours and she is getting Narco and I'll ordered for the pain management along with Ativan for anxiety as needed. Objective - Vital Signs Vital signs: Vital Signs Temp 98.5 F 04/20/19 07:00 Pulse 93 04/20/19 07:00 Resp 15 04/20/19 07:00 BP 145/79 04/20/19 07:00 Pulse Ox 98 04/20/19 08:38 Intake & Output 04/19/19 04/20/19 04/20/19 18:59 06:59 18:59 Intake Total 879 400 Output Total 400 Balance 879 -400 400 Intake: IV 400 400 Sodium Chloride 0.9% 1, 400 400 000 ml @ 50 mls/hr IV . Q20H [facility] Rx#:[id number] Oral 479 Output: Urine 400 Other: Voiding Method Indwelling Catheter Indwelling Catheter Indwelling Catheter - Constitutional Constitutional Comment(s): Pleasantly confused lady lying in bed comfortably. - Neck Neck: Present: normal ROM. Absent: lymphadenopathy, stridor - Respiratory Respiratory: bilateral: CTA, negative: rales, rhonchi, wheezing - Cardiovascular Rhythm: regular Heart sounds: normal: S1, S2 Abnormal Heart Sounds: Present: systolic murmur - Gastrointestinal General gastrointestinal: Present: normal bowel sounds, soft. Absent: distended, rigid, tenderness - Musculoskeletal Musculoskeletal Comment(s): Peripheral pulses positive, no edema noted. Patient has postoperative stabiliz ation cast on the left forearm and wrist with bruising of the left hand. Patient does have significant bruising of the left thigh and knee area. - Allied health notes Allied health notes reviewed: nursing - Labs CBC & Chem 7: 04/20/19 09:48 04/20/19 09:48 Labs: Abnormal Lab Results - Last 24 Hours (Table) 04/20/19 04/20/19 Range/Units 09:48 09:48 RBC 2.65 L (3.80-5.40) m/uL Hgb 7.3 L (11.4-16.0) gm/dL Hct 24.1 L (34.0-46.0) % MCHC 30.3 L (31.0-37.0) g/dL RDW 17.9 H (11.5-15.5) % Sodium 135 L (137-145) mmol/L BUN 22 H (7-17) mg/dL Glucose 108 H (74-99) mg/dL Total Protein 5.2 L (6.3-8.2) g/dL Albumin 2.6 L (3.5-5.0) g/dL Assessment and Plan (1) Closed left radial fracture Current Visit: Yes Status: Acute Priority: High Code(s): S52.92XA - UNSP FRACTURE OF LEFT FOREARM, INIT FOR CLOS FX SNOMED Code(s): 910888674 (2) Fall Current Visit: Yes Status: Acute Priority: High Code(s): W19.XXXA - UNSPECIFIED FALL, INITIAL ENCOUNTER SNOMED Code(s): 7110880 (3) Femoral neck fracture Current Visit: Yes Status: Acute Priority: High Code(s): S72.009A - FRACTURE OF UNSP PART OF NECK OF UNSP FEMUR, INIT SNOMED Code(s): 0045404 (4) Colitis Current Visit: No Status: Acute Code(s): K52.9 - NONINFECTIVE GASTROENTERITIS AND COLITIS, UNSPECIFIED SNOMED Code(s): 09207334 Plan: Patient will be continued on current management plan for medical standpoint her CBC will be checked tonight at 6 PM and tomorrow morning at 6 AM and will monitor hemoglobin and if less than 7 I will transfuse. Pain management will be carried continued with [place] and Dilaudid as needed. Patient as suggested by the family will be kept comfortable and there as far as currently the plan is that patient will be taken home by the family with home health care. If patient gets sundowning and confusion in the evening hours low-dose trazodone is better than Ativan and controlling symptoms related to her worsening dementia. We will continue to follow while patient is in the hospital. Thank you for the consult. Time with Patient: Less than 30
[2019-04-20 18:52] LABS: Anisocytosis Slight; HCT 22.1 % (34.0-46.0); Hypochromasia Slight; MCH 27.1 pg (25.0-35.0); MCHC 31.7 g/dL (31.0-37.0); MCV 85.5 fL (80.0-100.0); Mean Platelet Volume 8.7; Platelet Count 219 k/uL (150-450); RBC 2.58 m/uL (3.80-5.40); RDW 18.2 % (11.5-15.5); WBC 9.7 k/uL (3.8-10.6)
[2019-04-21] MEDS: FERROUS SULFATE 325 MG TAB PO SCH (00:46)
[2019-04-21] MEDS: HYDROcodone/APAP 10-325MG 1 EACH TAB PO SCH ×3 (00:46→12:12)
[2019-04-21 04:35] VITALS: PULSE 98
[2019-04-21 07:04] LABS: Anisocytosis Slight; HCT 22.3 % (34.0-46.0); Hypochromasia Slight; MCHC 31.4 g/dL (31.0-37.0); Mean Platelet Volume 8.2; Platelet Count 243 k/uL (150-450); RDW 18.5 % (11.5-15.5); WBC 6.7 k/uL (3.8-10.6)
[2019-04-21] MEDS: BALSALAZIDE DISODIUM 750 MG CAPSULE PO SCH ×2 (08:02→12:12)
[2019-04-21] MEDS: LEVOTHYROXINE 50 MCG TAB PO SCH (08:03)
[2019-04-21] MEDS: POTASSIUM CHLORIDE ER 10 MEQ TAB.ER.PRT PO SCH (08:03)
[2019-04-21] MEDS: ENOXAPARIN 40 MG/0.4 ML SYRINGE SQ SCH (08:03)
[2019-04-21] MEDS: FAMOTIDINE 20 MG TAB PO SCH (08:03)
[2019-04-21] MEDS: busPIRone HCl 5 MG TAB PO SCH ×2 (08:03→12:12)
[2019-04-21] MEDS: POLYETHYLENE GLYCOL 3350 17 GM POWD.PACK PO SCH (08:03)
[2019-04-21] MEDS: VERAPAMIL SR 240 MG TABLET.ER PO SCH (08:03)
[2019-04-21] MEDS: CITALOPRAM HYDROBROMIDE 10 MG TAB PO SCH (08:06)
[2019-04-21] MEDS: SODIUM CHLORIDE 0.9% 1,000 ML IV SCH (08:08)
--- NOTE | 2019-04-21 08:29 | P.PN ---
Subjective Progress Note Date: 04/21/19 Principal diagnosis: Intertrochanteric fracture left hip. Distal radius fracture left wrist. Status post close reduction with insertion of IT nail left hip. This is an 78-year-old female who is status post close reduction with insertion of intertrochanteric nail left hip. She also has a distal radius fracture of the left wrist. She is confused this morning and slightly agitated. No new complaints or concerns. Objective - Vital Signs Vital signs: Vital Signs Temp 97.8 F 04/21/19 00:22 Pulse 98 04/21/19 04:00 Resp 16 04/21/19 04:00 BP 125/73 04/21/19 00:22 Pulse Ox 95 04/21/19 00:22 Intake & Output 04/20/19 04/21/19 04/21/19 18:59 06:59 18:59 Intake Total 400 356 660 Output Total 500 Balance 400 -144 660 Intake: IV 400 600 Sodium Chloride 0.9% 1, 400 600 000 ml @ 50 mls/hr IV . Q20H [facility] Rx#:[id number] Oral 356 60 Output: Urine 500 Uretheral (Velazquez) 500 Other: Voiding Method Indwelling Catheter Indwelling Catheter # Bowel Movements 1 - Exam This is an 78-year-old female in no acute distress. She is alert and oriented 3. Exam of the left upper extremity reveals that the nursing staff has place the arm in a sheet to keep her protected. She is able to wiggle her fingers. Exam of the lower extremities reveals left hip dressing clean, dry and intact. She has full foot and ankle motion without difficulty or pain. Neurovascular status to the lower extremity is intact. - Labs CBC & Chem 7: 04/21/19 06:47 04/20/19 09:48 Labs: Abnormal Lab Results - Last 24 Hours (Table) 04/20/19 04/20/19 04/20/19 Range/Units 09:48 09:48 15:08 RBC 2.65 L 2.56 L (3.80-5.40) m/uL Hgb 7.3 L 7.0 L (11.4-16.0) gm/dL Hct 24.1 L 21.9 L (34.0-46.0) % MCHC 30.3 L (31.0-37.0) g/dL RDW 17.9 H 18.3 H (11.5-15.5) % Sodium 135 L (137-145) mmol/L BUN 22 H (7-17) mg/dL Glucose 108 H (74-99) mg/dL Total Protein 5.2 L (6.3-8.2) g/dL Albumin 2.6 L (3.5-5.0) g/dL 04/20/19 04/21/19 Range/Units 18:36 06:47 RBC 2.58 L 2.60 L (3.80-5.40) m/uL Hgb 7.0 L 7.0 L (11.4-16.0) gm/dL Hct 22.1 L 22.3 L (34.0-46.0) % MCHC (31.0-37.0) g/dL RDW 18.2 H 18.5 H (11.5-15.5) % Sodium (137-145) mmol/L BUN (7-17) mg/dL Glucose (74-99) mg/dL Total Protein (6.3-8.2) g/dL Albumin (3.5-5.0) g/dL Assessment and Plan (1) Intertrochanteric fracture of left hip Current Visit: Yes Status: Acute Code(s): S72.142A - DISPLACED INTERTROCHANTERIC FRACTURE OF LEFT FEMUR, INIT SNOMED Code(s): 048312986 (2) Blunt head trauma Current Visit: Yes Status: Acute Code(s): S09.8XXA - OTHER SPECIFIED INJURIES OF HEAD, INITIAL ENCOUNTER SNOMED Code(s): 54763444 (3) Closed left radial fracture Current Visit: Yes Status: Acute Priority: High Code(s): S52.92XA - UNSP FRACTURE OF LEFT FOREARM, INIT FOR CLOS FX SNOMED Code(s): 010960800 (4) Fall Current Visit: Yes Status: Acute Priority: High Code(s): W19.XXXA - UNSPECIFIED FALL, INITIAL ENCOUNTER SNOMED Code(s): 8280512 Plan: The clinical findings are discussed with the patient and nursing staff. I will return later to place her left arm in a cast. She may be discharged to [facility] later today.
[2019-04-21 08:58] VITALS: BP 150/72; TEMP 98.6
[2019-04-21] MEDS: LORazepam 1 MG TAB PO PRN (09:56)
[2019-04-21] MEDS: FLUTICASONE 220 MCG INHALER INHALATION SCH (11:04)
--- NOTE | 2019-04-21 12:30 | P.DS ---
Providers Date of admission: 04/16/19 23:35 Expected date of discharge: 04/21/19 Attending physician: Reuben Lebron Consults: 04/17/19 03:04 Consult Physician Routine Consulting Provider: Johanne Shi Consult Reason/Comments: Medical Do you want consulting provider notified?: Yes Primary care physician: Tawanda Nguyen - Discharge Diagnosis(es) (1) Intertrochanteric fracture of left hip Current Visit: Yes Status: Acute (2) Blunt head trauma Current Visit: Yes Status: Acute (3) Closed left radial fracture Current Visit: Yes Status: Acute Priority: High (4) Fall Current Visit: Yes Status: Acute Priority: High Hospital Course: This is a 78-year-old female who is admitted to [facility] on 04/16/2019 after falling and sustaining injury to the left hip An left wrist. On exam and x-ray in the emergency department he is found to have an intertrochanteric fracture of the left hip and a distal radius fracture to the left wrist. She is admitted to our service for surgical intervention and care. Patient is taken to surgery for close reduction and insertion of intertrochanteric nail of the left hip. The procedure was performed without complication or sequelae. The patient is doing fairly well postoperatively. Vital signs and labs are stable on postoperative day #3. Her left wrist splint is changed to a cast today. She will be in a short arm cast for 4-5 weeks. Patient is discharged to her [facility] in Stable condition. Please see med rec for accurate list of discharge medications. Patient Condition at Discharge: Stable Plan - Discharge Summary Discharge Rx Participant: No New Discharge Prescriptions: New HYDROcodone/APAP 10-325MG [Bledsoe 10-325] 1 each PO Q6H #28 tab Aspirin 325 mg PO DAILY #1 tab No Action Levothyroxine Sodium [Synthroid] 175 mcg PO DAILY@0700 Beclomethasone Dipropionate [Qvar 80 mcg/puff] 2 puff INHALATION RT- BID@0700,1900 Albuterol Sulfate [Ventolin HFA] 1 - 2 puff INHALATION RT-QID PRN PRN Reason: Shortness Of Breath Ranitidine HCl 150 mg PO BID@0700,1900 Verapamil Sr [Isoptin Sr] 240 mg PO DAILY@0700 Cholecalciferol (Vitamin D3) [Vitamin D3] 2,000 unit PO DAILY@0700 Ondansetron HCl [Zofran] 4 - 8 mg PO Q12H PRN PRN Reason: Nausea Bisacodyl [Dulcolax] 10 mg RECTAL DAILY PRN PRN Reason: Constipation traZODone HCL [TraZODone HCl] 50 mg PO HS@1900 Potassium Chloride ER [K-Dur 10] 10 meq PO BID@0700,1900 Polyethylene Glycol 3350 [Miralax] 17 gram PO DAILY@0700 Melatonin 3 mg PO HS@1900 PRN PRN Reason: Insomnia HYDROcodone/APAP 10-325MG [Bledsoe 10-325] 1 tab PO TID@0700,1400,1900 Ferrous Sulfate [Feosol] 325 mg PO Q48H Balsalazide Disodium [Colazal] 2,250 mg PO TID@0700,1400,1900 busPIRone HCL 15 mg PO TID@0700,1400,1900 Citalopram Hydrobromide [Citalopram HBr] 5 mg PO DAILY@0700 LORazepam [Ativan] 1 mg PO TID PRN PRN Reason: Anxiety Discharge Medication List Albuterol Sulfate [Ventolin HFA] 1 - 2 puff INHALATION RT-QID PRN 05/17/14 [History] Beclomethasone Dipropionate [Qvar 80 mcg/puff] 2 puff INHALATION RT- BID@0700,1900 05/17/14 [History] Levothyroxine Sodium [Synthroid] 175 mcg PO DAILY@0700 05/17/14 [History] Ranitidine HCl 150 mg PO BID@0700,1900 03/08/17 [History] Cholecalciferol (Vitamin D3) [Vitamin D3] 2,000 unit PO DAILY@0700 02/14/18 [History] Verapamil Sr [Isoptin Sr] 240 mg PO DAILY@0700 02/14/18 [History] Ondansetron HCl [Zofran] 4 - 8 mg PO Q12H PRN 11/25/18 [History] Bisacodyl [Dulcolax] 10 mg RECTAL DAILY PRN 12/10/18 [History] Balsalazide Disodium [Colazal] 2,250 mg PO TID@0700,1400,1900 04/16/19 [History] Citalopram Hydrobromide [Citalopram HBr] 5 mg PO DAILY@0700 04/16/19 [History] Ferrous Sulfate [Feosol] 325 mg PO Q48H 04/16/19 [History] HYDROcodone/APAP 10-325MG [Bledsoe 10-325] 1 tab PO TID@0700,1400,1900 04/16/19 [History] LORazepam [Ativan] 1 mg PO TID PRN 04/16/19 [History] Melatonin 3 mg PO HS@1900 PRN 04/16/19 [History] Polyethylene Glycol 3350 [Miralax] 17 gram PO DAILY@0700 04/16/19 [History] Potassium Chloride ER [K-Dur 10] 10 meq PO BID@0700,1900 04/16/19 [History] busPIRone HCL 15 mg PO TID@0700,1400,1900 04/16/19 [History] traZODone HCL [TraZODone HCl] 50 mg PO HS@1900 04/16/19 [History] Aspirin 325 mg PO DAILY #1 tab 04/21/19 [Rx] HYDROcodone/APAP 10-325MG [Bledsoe 10-325] 1 each PO Q6H #28 tab 04/21/19 [Rx] Follow up Appointment(s)/Referral(s): [facility], [NON-STAFF] - 1-2 Days Tawanda Nguyen MD [Primary Care Provider] - 1-2 days Jannette Franz PAC [PHYSICIAN PODIATRY ASSISTANT] - 4 Weeks Activity/Diet/Wound Care/Special Instructions: Toe-touch weightbearing to the left lower extremity. Routine cast care left upper extremity. Follow-up in 4-5 weeks for cast removal and re-x-ray. Discharge Disposition: TRANSFER TO SNF/ECF
--- NOTE | 2019-04-21 15:00 | P.PN ---
Subjective Progress Note Date: 04/21/19 Patient is more awake today states she is feeling better although still weak. Patient did recognize this marketing writer from yesterday's encounter. Patient is pleasantly confused oriented 1 or maybe 2. Her hemoglobin is stable around 7 g and she is on iron supplementation every other day. Nurses reported that patient's family finally decided in hospice care services for the patient and it was reported to this marketing writer that patient will be discharged today under hospitalist services. Patient denies chest pain time nausea vomiting and denies abdominal pain but I doubt the reliability due to presence of dementia and confusion. Objective - Vital Signs Vital signs: Vital Signs Temp 98.6 F 04/21/19 08:57 Pulse 98 04/21/19 08:57 Resp 16 04/21/19 08:57 BP 150/72 04/21/19 08:57 Pulse Ox 97 04/21/19 08:57 Intake & Output 04/20/19 04/21/19 04/21/19 18:59 06:59 18:59 Intake Total 400 356 660 Output Total 500 325 Balance 400 -144 335 Intake: IV 400 600 Sodium Chloride 0.9% 1, 400 600 000 ml @ 50 mls/hr IV . Q20H [facility] Rx#:[id number] Oral 356 60 Output: Urine 500 325 Uretheral (Velazquez) 500 Other: Voiding Method Indwelling Catheter Indwelling Catheter Indwelling Catheter # Bowel Movements 1 - Constitutional Constitutional Comment(s): Pleasantly confused. General appearance: Present: cooperative - Neck Neck: Present: normal ROM. Absent: lymphadenopathy, rigidity - Respiratory Respiratory: bilateral: CTA, negative: rales, rhonchi, wheezing - Cardiovascular Rhythm: regular Heart sounds: normal: S1, S2 Abnormal Heart Sounds: Present: systolic murmur - Gastrointestinal General gastrointestinal: Present: normal bowel sounds, soft. Absent: distended, rigid, tenderness - Neurologic Neurologic Comment(s): Cranial nerves grossly intact 2-12 bilaterally, no focal neuro deficits noted. - Musculoskeletal Musculoskeletal Comment(s): Left upper extremity post surgical cast is noted. Left hip postsurgical dressing in place. - Labs CBC & Chem 7: 04/21/19 06:47 04/20/19 09:48 Labs: Abnormal Lab Results - Last 24 Hours (Table) 04/20/19 04/20/19 04/21/19 Range/Units 15:08 18:36 06:47 RBC 2.56 L 2.58 L 2.60 L (3.80-5.40) m/uL Hgb 7.0 L 7.0 L 7.0 L (11.4-16.0) gm/dL Hct 21.9 L 22.1 L 22.3 L (34.0-46.0) % RDW 18.3 H 18.2 H 18.5 H (11.5-15.5) % Assessment and Plan (1) Closed left radial fracture Current Visit: Yes Status: Acute Priority: High Code(s): S52.92XA - UNSP FRACTURE OF LEFT FOREARM, INIT FOR CLOS FX SNOMED Code(s): 566847063 (2) Fall Current Visit: Yes Status: Acute Priority: High Code(s): W19.XXXA - UNSPECIFIED FALL, INITIAL ENCOUNTER SNOMED Code(s): 9058125 (3) Femoral neck fracture Current Visit: Yes Status: Acute Priority: High Code(s): S72.009A - FRACTURE OF UNSP PART OF NECK OF UNSP FEMUR, INIT SNOMED Code(s): 9840341 (4) Colitis Current Visit: No Status: Acute Code(s): K52.9 - NONINFECTIVE GASTROENTERITIS AND COLITIS, UNSPECIFIED SNOMED Code(s): 75434306 Plan: Patient is fairly stable to the best she can at this point in time. Her hemoglobin remains stable 7 g/dL and she will be continued on iron supplementation. Patient is going home on hospice and further management will be directed per hospice team protocol. As patient remained in normal sinus rhythm post surgery and her telemetry was discontinued earlier today. We will sign off from medical standpoint, please do not hesitate to call if any help is needed in further medical management. Thank you for allowing some physician group to take care of the medical management for a few patient. Time with Patient: Less than 30
--- NOTE | 2019-05-05 14:47 | P.OP ---
Date of Procedure: 04/18/19 Procedure(s) Performed: PREOPERATIVE DIAGNOSIS: Left hip intertrochanteric fracture. POSTOPERATIVE DIAGNOSIS: Left hip intertrochanteric fracture. OPERATION: Left hip intertrochanteric fracture closed reduction and intramedullary nailing using Synthes IT nail. DIRECTOR CORPORATE SECURITY: Sakshi Cramer PA-C (Assistance with: Patient positioning, retraction, exposure, hemostasis, fixation, irrigation, closure, dressing) ANESTHESIA: Spinal ESTIMATED BLOOD LOSS: 50 mL. COMPLICATIONS: None OPERATIVE FINDINGS: See dictation INDICATIONS: Mrs. Rg is an 78 year old female with a history of left displaced intertrochanteric fracture. She has a history of severe dementia. The patient presents to the operating room today for closed reduction and intramedullary nailing. I discussed the risks of surgery in detail as being inclusive of but not limited to: Bleeding, infection, scarring, discomfort, blood vessel and/or nerve damage, need for further surgery, malunion, nonunion, gait disturbance including persistent or permanent limp, limb length inequality, arthritis, hardware failure, blood clot, pulmonary embolism, , and other risks. The consent form has been signed. PROCEDURE: After appropriate consent was obtained, the patient was taken to the operating room and placed in supine position. Spinal anesthetic was administered and after confirmation of adequate anesthesia, the patient was carefully placed in the supine position on the operating room table in the fracture table. The patient was placed up against a well-padded peroneal post. Care was taken to make sure about that all pressure points were adequately padded. The affected leg was placed in boot traction and the unaffected leg was placed in a well leg manrique. Using gentle longitudinal distraction as well as adduction and internal rotation, the fracture was reduced as assessed by AP and lateral C-arm imaging. Once a satisfactory reduction had been obtained, the thigh was prepped and draped in the usual aseptic fashion using ChloraPrep. Ioban drape was used for the case and the patient received intravenous antibiotics prior to incision. Timeout was called, confirming patient identity, side, procedure, and administration of antibiotics. The incision was then created with a #10 blade just proximal to the greater trochanter laterally. It was carried down through skin into the subcutaneous tissues and through fascia. Hemostasis was obtained using electrocautery. The tip of the greater trochanter was palpated and a guide pin was placed at the tip and directed into the femoral shaft as assessed with C-arm imaging. Once optimal pin position had been obtained, a 17 mm reamer was used over the guide pin to create a path for the IT nail. IT nail selected was assembled to the insertion jig on the back table and bushings were checked for accuracy. The nail was then inserted using gentle mallet taps until it was fully deployed. The amount of rotation of the implant was assessed based on the amount of anteversion of the femoral neck. This was rotated to match the patient's femoral neck anteversion and the helical blade guide was placed through the insertion jig and through an incision on the lateral side of the thigh more distal than the first. Once this guide was placed against the lateral cortex of the femur, a guide pin was drilled into the central region of the femoral head and neck as based on AP and lateral C-arm imaging. Once optimal pin position had been obtained, the guidewire was measured and appropriately sized helical blade was selected. The path for the helical blade was prepared using a tapered reamer. The helical blade was then inserted using gentle mallet taps along the guidewire until it was fully deployed. There was no displacement of the fracture during this step. The anti-rotation screw was locked down and the insertion apparatus for the helical blade was removed. The guide pin was then removed. Traction was then removed from the leg and the distal interlock was placed through the jig using standard technique. Finally, the insertion jig for the nail was removed and final C-arm images were taken and saved in both AP and lateral planes. The final x-rays showed satisfactory positioning of the implant and good reduction of the fracture. The top of the nail was plugged with a small quantity of bone wax and the incisions were then thoroughly irrigated with normal saline. Final hemostasis was obtained using electrocautery and closure of the fascia was performed using 0-Vicryl suture. 2-0 Vicryl suture was used in the subcutaneous tissues and elizabeth were used for the skin. Sterile dressing was then applied and the patient was carefully removed from the fracture table frame and placed onto the stretcher. The patient tolerated the procedure well. There were no complications and 50 cc of blood loss. The patient was then subsequently transferred to recovery room in stable condition. Sponge and needle counts were correct.
== END 2019-04-21 15:10 | disposition hospice, home (50) | DRG 481 ==
LOC: EC 19:54 → 3NMEDONC 23:35 → 4SSUR 04-18 13:30
PROVIDERS: ADMIT Orthopaedic Surgery; ATTEND Orthopaedic Surgery
PROC: 0HQ1XZZ Repair Face Skin, External Approach (ICD-10-PCS; principal; 2019-04-16)
PROC: 2W3DX1Z Immobilization of Left Lower Arm using Splint (ICD-10-PCS; 2019-04-16)
PROC: 0QS736Z Reposition Left Upper Femur with Intramedullary Internal Fixation Device, Percutaneous Approach (ICD-10-PCS; 2019-04-18)
DX: S72.142A Displaced intertrochanteric fracture of left femur, initial encounter for closed fracture (principal); S52.502A Unspecified fracture of the lower end of left radius, initial encounter for closed fracture; F03.91 Unspecified dementia, unspecified severity, with behavioral disturbance; K51.90 Ulcerative colitis, unspecified, without complications; D62 Acute posthemorrhagic anemia; Z51.5 Encounter for palliative care; Z66 Do not resuscitate; S09.90XA Unspecified injury of head, initial encounter; S01.81XA Laceration without foreign body of other part of head, initial encounter; M41.9 Scoliosis, unspecified; F41.9 Anxiety disorder, unspecified; J45.30 Mild persistent asthma, uncomplicated; K21.9 Gastro-esophageal reflux disease without esophagitis; E78.5 Hyperlipidemia, unspecified; I10 Essential (primary) hypertension; M19.91 Primary osteoarthritis, unspecified site; M54.5 Low back pain; F32.9 Major depressive disorder, single episode, unspecified; K58.9 Irritable bowel syndrome, unspecified; K57.30 Diverticulosis of large intestine without perforation or abscess without bleeding; K64.9 Unspecified hemorrhoids; G89.29 Other chronic pain; I73.00 Raynaud's syndrome without gangrene; M81.0 Age-related osteoporosis without current pathological fracture; E03.9 Hypothyroidism, unspecified; Z79.890 Hormone replacement therapy; Z79.51 Long term (current) use of inhaled steroids; Z79.899 Other long term (current) drug therapy; W18.30XA Fall on same level, unspecified, initial encounter; Z90.710 Acquired absence of both cervix and uterus; Z90.49 Acquired absence of other specified parts of digestive tract; Z96.653 Presence of artificial knee joint, bilateral; Z98.890 Other specified postprocedural states; Z98.42 Cataract extraction status, left eye; Z98.41 Cataract extraction status, right eye; Z96.1 Presence of intraocular lens; Z88.1 Allergy status to other antibiotic agents; Z88.5 Allergy status to narcotic agent; Z88.2 Allergy status to sulfonamides; Z88.8 Allergy status to other drugs, medicaments and biological substances; Z81.1 Family history of alcohol abuse and dependence; Z83.49 Family history of other endocrine, nutritional and metabolic diseases
CPT/HCPCS: 12011; 29125; 36415; 70450; 70486; 71045; 72100; 72125; 73502; 80048; 80053; 81003; 85025; 85027; 85610; 85730; 86850; 86900; 86901; 93005; 93970; 94640; 94760; 96374; 96375; 99285